=== PATIENT | female | born 1950 | race Caucasian/White ===

== ENCOUNTER 2018-03-31 10:13 | Observation (INO) | payer MEDICARE, OTHER, SELFPAY ==
[2018-03-31] VITALS (16 sets, daily range): BP systolic 138–169; BP diastolic 64–144; PULSE 61–89; RESP 14–18; TEMP 36.7–36.8; O2SAT 93–99; BMI 33.0; BMI 32.2
--- NOTE | 2018-03-31 10:30 | CT_ITS ---
STUDY: CT BRAIN WITHOUT CONTRAST REASON FOR EXAM: Female, 67 years old. Numbness RADIATION DOSAGE (If Supplied By Facility): CTDIvol = ( 44.99 ) mGy, DLP = ( 815.79 ) mGycm TECHNIQUE: Transaxial CT imaging of the brain was performed without administration of intravenous contrast material. Coronal and sagittal 2-D MPR Individualized dose optimization techniques were used for this CT. COMPARISON: None. FINDINGS: Extracranial soft tissues including orbital contents exhibit no acute abnormality. Craniofacial osseous structures within the field of view exhibit no acute abnormality. Paranasal sinuses, mastoid air cells and middle ear cavities are clear. There is minimal symmetric expansion of lateral ventricles and extra-axial spaces consistent with minimal age-related atrophy. There are no significant chronic changes of the white matter. Normal pituitary, brainstem and cerebellum There is no acute intracranial bleed, mass or mass effect nor any specific evidence of acute territorial infarct. CT/Brain/Head without Contrast IMPRESSION: No acute intracranial process. Electronically Signed: Mirza Mercado, at 12:35 EDT Tel , Service support ,
--- NOTE | 2018-03-31 10:30 | EKG12_ITS ---
Test Reason : NEURO S/SX Blood Pressure : / mmHG Vent. Rate : 084 BPM Atrial Rate : 084 BPM P-R Int : 152 ms QRS Dur : 090 ms QT Int : 392 ms P-R-T Axes : 058 052 035 degrees QTc Int : 463 ms Normal sinus rhythm Nonspecific ST abnormality Abnormal ECG Confirmed by BALJINDER ALMANZAR, RUSS ([id number]), photo editor FILI CEJA ([id number]) on 04/03/2018 1:41:30 PM Referred By: TAMIKA/MARTINA Confirmed By:RUSS GALE MD
--- NOTE | 2018-03-31 10:30 | RAD_ITS ---
STUDY: X-RAY CHEST REASON FOR EXAM: Female, 67 years old. Arm and face numbness TECHNIQUE: Single AP portable view of the chest. COMPARISON: None. FINDINGS: The lungs are clear and expanded. There is no demonstrated pleural abnormality. Normal size heart. Normal mediastinum and ainsley. Normal visualized pulmonary arteries. Normal visualized aortic arch and descending thoracic aorta. Normal visualized thoracic spine. Normal visualized ribs, clavicles, and shoulders. There is no demonstrated abnormality of the visualized soft tissue structures of the upper abdomen. RAD/Chest 1 View IMPRESSION: Normal x-ray examination of the chest. Electronically Signed: Tony Aceves DO at 11:08 EDT Tel , Service support ,
--- NOTE | 2018-03-31 10:45 | ED.VISSUMM ---
- ER Visit Summary Date of Service: 03/31/18 Chief Complaint: Numbness History of Present Illness: The patient is a 67 F with a sudden onset of numbness to her bilateral cheeks, lips, bilateral forearms, and bilateral feet. This started within the hour. No vision changes or speech changes. No weakness. Patient had bladder vaginal surgery earlier this week. She believes that the symptoms might be from anesthesia. She also was concerned about DVT. She has a history of DVT. She presented with unilateral leg pain and swelling. She was on Xarelto, but is currently not on blood thinners. Physical Examination: Afebrile and vital signs unremarkable except for a blood pressure of 165/144. Patient is in no acute distress. Alert and oriented. Heart regular. Lungs clear. Abdomen soft. Extremities nontender with no edema. Skin is normal in color. Cranial nerves grossly intact. Normal strength in all muscle groups. Patient has subjective paresthesias in her bilateral cheeks, bilateral lips, bilateral forearms, and bilateral feet. Test Results: EKG shows sinus rhythm at a rate of 84. Nonspecific changes. No acute ischemia or infarction pattern. Labs, CT, and chest x-ray pending. Emergency Department Course and Treatment: Concern for neurologic, metabolic causes. Patient does not meet stroke team criteria or indication for TPA. Nothing specific to suggest DVT or PE. Imaging and labs were checked. Will reassess. Patient does not meet criteria for stroke team or TPA. Labs including calcium unremarkable. Troponin normal. Chest x-ray showed normal findings. CT head showed nothing acute. On reevaluation, patient reports decreasing sensation going up the left side of her face. I spoke with Dr. Ontiveros who suggested that if this symptom is real, it may be a thalamic stroke. The patient seems to think that the symptoms are worse. I spoke with the hospitalist who will admit Treatment Plan: As above Disposition: Admission Impression: 1. Paresthesias This note was generated with [employer] dictation software. It may contain incorrect words, spelling, and punctuation that were not noted in review of the chart prior to signing ED Disposition - Plan for ED Patient: Chief Complaint: Numb/Ting Referrals: Allison Hines MD [Primary Care Provider] -
[2018-03-31 10:46] LABS: Bedside Glucose 125 mg/dL (70-110)
[2018-03-31 10:48] LABS: Absolute Lymphocyte Count 1.64 X10^3/ul (0.83-4.51); Absolute Neutrophil Count 4.5 X10^3/uL (2.0-7.7); Basophil# 0.04 X10^3/uL; Basophil% 0.6 % (0-1); Eosinophil# 0.18 X10^3/uL; Eosinophils% 2.7 % (0-5); Hematocrit 40.5 % (37-47); Hemoglobin 12.8 g/dl (12.0-15.0); Lymphocyte # 1.64 X10^3/ul (4.0); Lymphocyte % 24.4 % (19-41); Mean Corp Hgb Conc 31.6 g/gl (32-36); Mean Corpuscular Hgb 29.2 pg (27.0-32.0); Mean Corpuscular Volume 92.5 fL (81-99); Mean Platelet Vol. 10.2 fl (6.2-12.0); Monocyte# 0.36 X10^3/uL; Monocyte% 5.4 % (0-10); Neutrophil # 4.48 X10^3/uL (2.7-7.7); Neutrophil % 66.8 % (47-70); Platelet Count 228 K/mm3 (150-450); RBC Distribution Width CV 14.3 % (11.6-14.6); RBC Distribution Width SD 48.4 fl (35.1-43.9); Red Blood Count 4.38 M/mm3 (4.2-5.4); White Blood Count 6.7 K/mm3 (4.4-11.0)
--- NOTE | 2018-03-31 10:48 | ED.DCSUM_ITS ---
- ER Visit Summary Date of Service: 03/31/18 Chief Complaint: Numbness History of Present Illness: The patient is a 67 F with a sudden onset of numbness to her bilateral cheeks, lips, bilateral forearms, and bilateral feet. This started within the hour. No vision changes or speech changes. No weakness. Patient had bladder vaginal surgery earlier this week. She believes that the symptoms might be from anesthesia. She also was concerned about DVT. She has a history of DVT. She presented with unilateral leg pain and swelling. She was on Xarelto, but is currently not on blood thinners. Physical Examination: Afebrile and vital signs unremarkable except for a blood pressure of 165/144. Patient is in no acute distress. Alert and oriented. Heart regular. Lungs clear. Abdomen soft. Extremities nontender with no edema. Skin is normal in color. Cranial nerves grossly intact. Normal strength in all muscle groups. Patient has subjective paresthesias in her bilateral cheeks, bilateral lips, bilateral forearms, and bilateral feet. Test Results: EKG shows sinus rhythm at a rate of 84. Nonspecific changes. No acute ischemia or infarction pattern. Labs, CT, and chest x-ray pending. Emergency Department Course and Treatment: Concern for neurologic, metabolic causes. Patient does not meet stroke team criteria or indication for TPA. Nothing specific to suggest DVT or PE. Imaging and labs were checked. Will reassess. Patient does not meet criteria for stroke team or TPA. Labs including calcium unremarkable. Troponin normal. Chest x-ray showed normal findings. CT head showed nothing acute. On reevaluation, patient reports decreasing sensation going up the left side of her face. I spoke with Dr. Ontiveros who suggested that if this symptom is real , it may be a thalamic stroke. The patient seems to think that the symptoms are worse. I spoke with the hospitalist who will admit Treatment Plan: As above Disposition: Admission Impression: 1. Paresthesias This note was generated with [employer] dictation software. It may contain incorrect words, spelling, and punctuation that were not noted in review of the chart prior to signing ED Disposition - Plan for ED Patient: Chief Complaint: Numb/Ting Referrals: Allison Hines MD [Primary Care Provider] -
[2018-03-31 10:49] LABS: POSITIVE COUNT NO; POSITIVE DIFFERENTIAL NO; POSITIVE MORPHOLOGY NO
[2018-03-31 11:06] LABS: Anion Gap 7 (5-15); BUN 10 mg/dL (7-18); BUN/Creat Ratio 15.2 RATIO (10-20); Calcium,Total 8.4 mg/dL (8.5-10.1); Chloride 103 mmol/L (98-107); Creatinine, Serum 0.66 mg/dL (0.55-1.02); EST Glomerular Filtration Rate 95 mL/min (>60); Est Glom Filt Rate - Afr Amer 115 mL/min (>60); Estimated Creatinine Clearance 51.63 ml/min; Glucose 138 mg/dL (74-106); Potassium 4.1 mmol/L (3.5-5.1); Sodium Level 140 mmol/L (136-145)
--- NOTE | 2018-03-31 11:31 | ED.RN ---
called lab to assist with redraw. this RN attempted x2. MEAL GRINDER TENDER attempted x2.
[2018-03-31 12:13] LABS: International Normalized Ratio 0.9; Prothrombin Time (Protime)PT. 12.4 SECONDS (11.7-14.9)
[2018-03-31 12:14] LABS: Partial Thromboplast Time 26.4 Seconds (24.1-36.2)
--- NOTE | 2018-03-31 13:43 | PCA ---
NEUROLOGY PAGED DR LEBLANC
--- NOTE | 2018-03-31 14:37 | PCM.HP.STD ---
<Arnie Escalera - Last Filed: 03/31/18 14:37> Problem List (1) CVA (cerebral vascular accident) Status: Acute (2) Uterine prolapse Status: Chronic (3) HTN (hypertension) Status: Chronic (4) Vertigo Status: Chronic (5) Hyperlipidemia Status: Chronic (6) Asthma Status: Chronic (7) Diabetes mellitus, type II Status: Chronic History of Present Illness Date of Admission: 03/31/18 Chief Complaint: numbness The patient is a 67 year old F with a history of type 2 diabetes, hyperlipidemia, hypertension, asthma, uterine prolapse who recently underwent a surgical repair at the [facility] discharged 2 days prior, who presents today with symptoms of bilateral facial numbness, bilateral forearm numbness, left-sided leg numbness that began this morning at approximately 10:00. Patient states that she was sitting in a chair when all of a sudden she felt her face and arms go numb on both sides. She denies any history of this type of sensation before. The sensations have persisted, currently she noticed that mostly and her left cheek at this moment. There were no accompanying focal weaknesses, no did diplopia, no headache, no blurry vision, no hearing changes, no facial droop, no slurring of speech, no ataxia. She has had no palpitations, no chest pain, no shortness of breath. She has no history of stroke. No smoking history. [] Past Medical History Past Medical History (Chronic Problems): Chronic Problems Uterine prolapse (Chronic) HTN (hypertension) (Chronic) Vertigo (Chronic) Hyperlipidemia (Chronic) Asthma (Chronic) Diabetes mellitus, type II (Chronic) Allergies ciprofloxacin [From Cipro] Adverse Reaction (Verified 08/24/13 19:51) Other ciprofloxacin HCl [From Cipro] Adverse Reaction (Verified 08/24/13 19:51) Other tetracycline [Tetracycline] Adverse Reaction (Verified 08/24/13 19:51) Other Home Medications: Ambulatory Orders Medication Instructions Recorded Metformin HCl [Glucophage] 1,000 mg PO BREAKFAST 08/24/13 Montelukast [Singulair] 10 mg PO DAILY 08/24/13 Budesonide Inhaler 90 mcg 1 puff INHALATION DAILY 03/31/18 [Pulmicort Flexhaler 90 mcg] Docusate Sodium [Colace] 100 mg PO BID 03/31/18 Fluticasone 0.05% [Flonase Nasal 2 spray NASAL DAILY 03/31/18 [place]] Lisinopril [Zestril] 20 mg PO DAILY 03/31/18 Meloxicam [Mobic] 15 mg PO DAILY 03/31/18 Metformin HCl 1,000 mg PO DINNER 03/31/18 Metformin HCl [Glucophage] 500 mg PO LUNCH 03/31/18 Oxycodone [Oxyir] 5 mg PO QHS PRN 03/31/18 Polyethylene Glycol 3350 [Miralax] 17 gm PO DAILY 03/31/18 Pravastatin [Pravachol] 20 mg PO QHS 03/31/18 Surgical History: - - Hysterectomy, bladder suspension Psychiatric History: No pertinent psych hx PLANISHER History: No pertinent PLANISHER history Lives: Alone Smoking Status: Never smoker Tobacco Use: Non-smoker Alcohol: None Drugs: None - *Family History Maternal History Items: No pertinent history Paternal History Items: No pertinent history Review of Systems Constitutional: Denies: Chills, Fever, Weight Change HEENT: Denies: Head Aches, Sinus Congestion, Sinus Drainage Cardiovascular: Denies: Chest Pain, Palpitations Respiratory: Denies: Cough, Shortness of breath at rest, Sputum production Gastrointestinal: Denies: Abdominal Pain, Nausea, Vomiting Genitourinary: Denies: Dysuria Musculoskeletal: Denies: Joint Pain, Joint Tenderness Skin: Denies: Rash, Wounds Neurological: Reports: Numbness, Tingling. Denies: Balance problems, Blurred vision, Double vision, Change in Speech, Slurred speech, Confusion, Difficulty swallowing, Focal weakness, Headaches, Incoordination, Tremor, Seizures Psychiatric: Denies: Anxiety, Depression, Homicidal Ideations, Suicidal Ideations Hematologic/ Lymphatic: Denies: Easy Bruising, Easy Bleeding VTE Information - Inpt Only VTE Present on Admission: No VTE Mechan Device Prophylaxis: SCD's VTE Pharm Prophylaxis ordered?: Yes Patient Problems: Active and Suspected Problems CVA (cerebral vascular accident) (Acute) Paresthesia (Acute) - Physical Exam General: Alert, Oriented x3, Cooperative HEENT: Atraumatic, PERRLA, EOMI, Normocephalic Neck: Supple, No JVD, Negative Carotid Bruits Lungs: Clear to auscultation, Normal air movement Cardiovascular: Regular rate, No murmurs Abdomen: Bowel Sounds Present, Soft, Non Tender Extremities: No edema, Capillary Refill Less than 3 Seconds Skin: No rashes, No breakdown Musculoskeletal: No Tenderness to Palpation of Joints or Extremities Neurological: Cranial nerves II-XII grossly intact Psych/Mental Status: Normal Affect, Appropriate, Alert and oriented to time, place, person, mood and affect Vital Signs Temp Pulse Resp BP Pulse Ox 98.3 F 68 18 147/72 H 95 03/31/18 10:13 03/31/18 14:00 03/31/18 14:00 03/31/18 14:00 03/31/18 14:00 Oxygen Flow Rate (L/min) 2 Oxygen Delivery Method Room Air Weight: 95.8 kg Body Mass Index (BMI) 33.0 Finger Stick Blood Glucose 125 Laboratory Tests Past 24 Hrs 03/31/18 03/31/18 03/31/18 10:35 10:35 10:35 WBC 6.7 RBC 4.38 Hgb 12.8 Hct 40.5 MCV 92.5 MCH 29.2 MCHC 31.6 L RDW 14.3 RDW Differential 48.4 H Plt Count 228 MPV 10.2 Immature Gran % (Auto) 0.100 Neut % (Auto) 66.8 Lymph % (Auto) 24.4 Ballard % (Auto) 5.4 Eos % (Auto) 2.7 Baso % (Auto) 0.6 Absolute Neuts (auto) 4.5 Absolute Lymphs (auto) 1.64 Total Counted Not Reportable PT Cancelled INR Cancelled APTT Cancelled Sodium 140 Potassium 4.1 Chloride 103 Carbon Dioxide 30.0 Anion Gap 7 BUN 10 Creatinine 0.66 Estim Creat Clear Calc 51.63 Est GFR (MDRD) Af Amer 115 Est GFR (MDRD) Non-Af 95 BUN/Creatinine Ratio 15.2 Glucose 138 H Calcium 8.4 L Troponin I < 0.015 03/31/18 11:55 WBC RBC Hgb Hct MCV MCH MCHC RDW RDW Differential Plt Count MPV Immature Gran % (Auto) Neut % (Auto) Lymph % (Auto) Ballard % (Auto) Eos % (Auto) Baso % (Auto) Absolute Neuts (auto) Absolute Lymphs (auto) Total Counted PT 12.4 INR 0.9 APTT 26.4 Sodium Potassium Chloride Carbon Dioxide Anion Gap BUN Creatinine Estim Creat Clear Calc Est GFR (MDRD) Af Amer Est GFR (MDRD) Non-Af BUN/Creatinine Ratio Glucose Calcium Troponin I POC Glucose 03/31/18 10:43 POC Glucose 125 H Assessment/Plan All Active Problems CVA (cerebral vascular accident) (Acute) Paresthesia (Acute) 1. BL facial, forearm numbness and tingling - rule out CVA - sudden on set this AM. CT brain negative. EKG negative. No focal findings. Currently only left sided facial numbness. MRI/MRA, echo, neuro consult, PTOTST. Asa, statin. Risk factors include HTN, HLD, DMt2 2. HTN - poorly controlled in ER. Trend and adjust meds as needed. 3. HLD - on home pravastatin for this already 4. DMt2 - hold orals, SSI. 5. Uterine prolapse - s/p laparoscopic surgery POD#3. 6. Hx DVT 2012. No longer on anticoagulation 7. Hx Vertigo - treated by ENT conservatively with positional care. She reports no recurrent symptoms. 8. Hx Asthma - currently no symptoms - continue home aerosols. DVT ppx: lovenox DC planning: PTOTST. This patient was seen by Arnie Escalera PA-C under the supervision of Doctor Juan J. <Ashkan Arita - Last Filed: 03/31/18 15:07> Problem List (1) Paresthesia Status: Acute History of Present Illness The patient is a 67 year old F [place] with paresthesias today. Earlier today patient had some paresthesias over her left lateral hip which she gets on occasion due to her sciatica. Later in the day, patient experienced paresthesias in her face along her lips and then her cheeks and then also experienced on her forearms. Patient did not have any overt weakness. Patient states that she was feeling well at this time and not anxious though it is noted that patient's wedding anniversary was within the past 2 weeks and her . Patient states that she was not anxious about the anniversary, however. Patient presented to the emergency room and underwent. Patient's NIH score was 0. Patient is otherwise feeling well and is never had any symptoms such as this in the past. [] Past Medical History Allergies ciprofloxacin [From Cipro] Adverse Reaction (Verified 08/24/13 19:51) Other ciprofloxacin HCl [From Cipro] Adverse Reaction (Verified 08/24/13 19:51) Other tetracycline [Tetracycline] Adverse Reaction (Verified 08/24/13 19:51) Other Psychiatric History: No pertinent psych hx PLANISHER History: No pertinent PLANISHER history Lives: Alone Smoking Status: Never smoker Tobacco Use: Non-smoker Alcohol: None Drugs: None - *Family History Maternal History Items: No pertinent history Paternal History Items: No pertinent history Review of Systems Constitutional: Denies: Chills, Fever, Weight Change HEENT: Denies: Difficulty Hearing, Head Aches, Sinus Congestion, Sinus Drainage Cardiovascular: Denies: Chest Pain, Palpitations Respiratory: Denies: Cough, Shortness of breath at rest, Sputum production Gastrointestinal: Denies: Abdominal Pain, Nausea, Vomiting Genitourinary: Denies: Dysuria Musculoskeletal: Denies: Joint Pain, Joint Tenderness Skin: Denies: Rash, Wounds Neurological: Denies: Balance problems, Blurred vision, Double vision, Change in Speech, Slurred speech, Confusion, Difficulty swallowing, Focal weakness, Headaches, Incoordination, Tremor, Seizures Psychiatric: Denies: Anxiety, Depression, Homicidal Ideations, Suicidal Ideations Hematologic/ Lymphatic: Denies: Easy Bruising, Easy Bleeding VTE Information - Inpt Only VTE Present on Admission: No VTE Pharm Prophylaxis ordered?: Yes - Physical Exam General: Alert, Cooperative, No apparent distress HEENT: Atraumatic, PERRLA, EOMI, Normocephalic Oral: Moist Mucosa, No Gingival or Mucosal Lesions/ Ulcerations Neck: No Nodes, Thyroid Normal Size and Texture Lungs: Clear to auscultation, Normal air movement, No rhonchi, No wheeze Cardiovascular: Regular rate, Regular Rhythm, Normal S1, Normal S2, No murmurs Abdomen: Bowel Sounds Present, Soft, Non Tender, Non-Distended Extremities: No clubbing, No cyanosis, No edema, No Calf Tenderness Skin: No rashes, No breakdown Musculoskeletal: No Tenderness to Palpation of Joints or Extremities, No Muscle Wasting Neurological: Cranial nerves II-XII grossly intact, Neuro grossly intact, Motor Exam 5/5 strength throughout Psych/Mental Status: Normal Affect, Appropriate Vital Signs Temp Pulse Resp BP Pulse Ox 36.8 C 68 18 147/72 H 95 03/31/18 10:13 03/31/18 14:00 03/31/18 14:00 03/31/18 14:00 03/31/18 14:00 Oxygen Flow Rate (L/min) 2 Oxygen Delivery Method Room Air Weight: 95.8 kg Body Mass Index (BMI) 33.0 Finger Stick Blood Glucose 125 Laboratory Tests Past 24 Hrs 03/31/18 03/31/18 03/31/18 10:35 10:35 10:35 WBC 6.7 RBC 4.38 Hgb 12.8 Hct 40.5 MCV 92.5 MCH 29.2 MCHC 31.6 L RDW 14.3 RDW Differential 48.4 H Plt Count 228 MPV 10.2 Immature Gran % (Auto) 0.100 Neut % (Auto) 66.8 Lymph % (Auto) 24.4 Ballard % (Auto) 5.4 Eos % (Auto) 2.7 Baso % (Auto) 0.6 Absolute Neuts (auto) 4.5 Absolute Lymphs (auto) 1.64 Total Counted Not Reportable PT Cancelled INR Cancelled APTT Cancelled Sodium 140 Potassium 4.1 Chloride 103 Carbon Dioxide 30.0 Anion Gap 7 BUN 10 Creatinine 0.66 Estim Creat Clear Calc 51.63 Est GFR (MDRD) Af Amer 115 Est GFR (MDRD) Non-Af 95 BUN/Creatinine Ratio 15.2 Glucose 138 H Calcium 8.4 L Troponin I < 0.015 03/31/18 11:55 WBC RBC Hgb Hct MCV MCH MCHC RDW RDW Differential Plt Count MPV Immature Gran % (Auto) Neut % (Auto) Lymph % (Auto) Ball[place] % (Auto) Eos % (Auto) Baso % (Auto) Absolute Neuts (auto) Absolute Lymphs (auto) Total Counted PT 12.4 INR 0.9 APTT 26.4 Sodium Potassium Chloride Carbon Dioxide Anion Gap BUN Creatinine Estim Creat Clear Calc Est GFR (MDRD) Af Amer Est GFR (MDRD) Non-Af BUN/Creatinine Ratio Glucose Calcium Troponin I POC Glucose 03/31/18 10:43 POC Glucose 125 H Clinical Impression(s) from Imaging Studies Brain CT 03/31/18 10:30 IMPRESSION: No acute intracranial process. Electronically Signed: Mirza Mercado, at 12:35 EDT Tel , Service support , Chest X-Ray 03/31/18 10:30 IMPRESSION: Normal x-ray examination of the chest. Electronically Signed: Tony Aceves DO at 11:08 EDT Tel , Service support , EKG reviewed and showed normal sinus Assessment/Plan Patient seen and examined independently. Data reviewed. I agree with the above note by the physician account management assistant. 1. Paresthesias Unclear etiology at this time. Concern is for evaluating for a stroke. Other possibilities could be panic attack though patient does not give me the impression that there is any acute anxiety issues at this time. So, patient will undergo a stroke workup with an MRI of the brain, MRA of the head neck, 2D echocardiogram and a neurology consultation. Patient has passed her dysphagia evaluation and patient has already been started on diet in the emergency room Patient will be on aspirin 2. DVT prophylaxis with Lovenox Code Visit Inpatient E&M: 58728 Init Hosp L3
--- NOTE | 2018-03-31 14:50 | HP.PCM_ITS ---
<Arnie Escalera - Last Filed: 03/31/18 14:37> Problem List (1) CVA (cerebral vascular accident) Status: Acute (2) Uterine prolapse Status: Chronic (3) HTN (hypertension) Status: Chronic (4) Vertigo Status: Chronic (5) Hyperlipidemia Status: Chronic (6) Asthma Status: Chronic (7) Diabetes mellitus, type II Status: Chronic History of Present Illness Date of Admission: 03/31/18 Chief Complaint: numbness The patient is a 67 year old F with a history of type 2 diabetes, hyperlipidemia , hypertension, asthma, uterine prolapse who recently underwent a surgical repair at the [facility] discharged 2 days prior, who presents today with symptoms of bilateral facial numbness, bilateral forearm numbness, left-sided leg numbness that began this morning at approximately 10:00. Patient states that she was sitting in a chair when all of a sudden she felt her face and arms go numb on both sides. She denies any history of this type of sensation before. The sensations have persisted, currently she noticed that mostly and her left cheek at this moment. There were no accompanying focal weaknesses, no did diplopia, no headache, no blurry vision, no hearing changes, no facial droop , no slurring of speech, no ataxia. She has had no palpitations, no chest pain , no shortness of breath. She has no history of stroke. No smoking history. [ ] Past Medical History Past Medical History (Chronic Problems): Chronic Problems Uterine prolapse (Chronic) HTN (hypertension) (Chronic) Vertigo (Chronic) Hyperlipidemia (Chronic) Asthma (Chronic) Diabetes mellitus, type II (Chronic) Allergies ciprofloxacin [From Cipro] Adverse Reaction (Verified 08/24/13 19:51) Other ciprofloxacin HCl [From Cipro] Adverse Reaction (Verified 08/24/13 19:51) Other tetracycline [Tetracycline] Adverse Reaction (Verified 08/24/13 19:51) Other Home Medications: Ambulatory Orders Medication Instructions Recorded Metformin HCl [Glucophage] 1,000 mg PO BREAKFAST 08/24/13 Montelukast [Singulair] 10 mg PO DAILY 08/24/13 Budesonide Inhaler 90 mcg 1 puff INHALATION DAILY 03/31/18 [Pulmicort Flexhaler 90 mcg] Docusate Sodium [Colace] 100 mg PO BID 03/31/18 Fluticasone 0.05% [Flonase Nasal 2 spray NASAL DAILY 03/31/18 Ross] Lisinopril [Zestril] 20 mg PO DAILY 03/31/18 Meloxicam [Mobic] 15 mg PO DAILY 03/31/18 Metformin HCl 1,000 mg PO DINNER 03/31/18 Metformin HCl [Glucophage] 500 mg PO LUNCH 03/31/18 Oxycodone [Oxyir] 5 mg PO QHS PRN 03/31/18 Polyethylene Glycol 3350 [Miralax] 17 gm PO DAILY 03/31/18 Pravastatin [Pravachol] 20 mg PO QHS 03/31/18 Surgical History: - - Hysterectomy, bladder suspension Psychiatric History: No pertinent psych hx 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 Lives: Alone Smoking Status: Never smoker Tobacco Use: Non-smoker Alcohol: None Drugs: None - *Family History Maternal History Items: No pertinent history Paternal History Items: No pertinent history Review of Systems Constitutional: Denies: Chills, Fever, Weight Change HEENT: Denies: Head Aches, Sinus Congestion, Sinus Drainage Cardiovascular: Denies: Chest Pain, Palpitations Respiratory: Denies: Cough, Shortness of breath at rest, Sputum production Gastrointestinal: Denies: Abdominal Pain, Nausea, Vomiting Genitourinary: Denies: Dysuria Musculoskeletal: Denies: Joint Pain, Joint Tenderness Skin: Denies: Rash, Wounds Neurological: Reports: Numbness, Tingling. Denies: Balance problems, Blurred vision, Double vision, Change in Speech, Slurred speech, Confusion, Difficulty swallowing, Focal weakness, Headaches, Incoordination, Tremor, Seizures Psychiatric: Denies: Anxiety, Depression, Homicidal Ideations, Suicidal Ideations Hematologic/ Lymphatic: Denies: Easy Bruising, Easy Bleeding VTE Information - Inpt Only VTE Present on Admission: No VTE Mechan Device Prophylaxis: SCD's VTE Pharm Prophylaxis ordered?: Yes Patient Problems: Active and Suspected Problems CVA (cerebral vascular accident) (Acute) Paresthesia (Acute) - Physical Exam General: Alert, Oriented x3, Cooperative HEENT: Atraumatic, PERRLA, EOMI, Normocephalic Neck: Supple, No JVD, Negative Carotid Bruits Lungs: Clear to auscultation, Normal air movement Cardiovascular: Regular rate, No murmurs Abdomen: Bowel Sounds Present, Soft, Non Tender Extremities: No edema, Capillary Refill Less than 3 Seconds Skin: No rashes, No breakdown Musculoskeletal: No Tenderness to Palpation of Joints or Extremities Neurological: Cranial nerves II-XII grossly intact Psych/Mental Status: Normal Affect, Appropriate, Alert and oriented to time, place, person, mood and affect Vital Signs Temp Pulse Resp BP Pulse Ox 98.3 F 68 18 147/72 H 95 03/31/18 10:13 03/31/18 14:00 03/31/18 14:00 03/31/18 14:00 03/31/18 14:00 Oxygen Flow Rate (L/min) 2 Oxygen Delivery Method Room Air Weight: 95.8 kg Body Mass Index (BMI) 33.0 Finger Stick Blood Glucose 125 Laboratory Tests Past 24 Hrs 03/31/18 03/31/18 03/31/18 10:35 10:35 10:35 WBC 6.7 RBC 4.38 Hgb 12.8 Hct 40.5 MCV 92.5 MCH 29.2 MCHC 31.6 L RDW 14.3 RDW Differential 48.4 H Plt Count 228 MPV 10.2 Immature Gran % (Auto) 0.100 Neut % (Auto) 66.8 Lymph % (Auto) 24.4 [place] % (Auto) 5.4 Eos % (Auto) 2.7 Baso % (Auto) 0.6 Absolute Neuts (auto) 4.5 Absolute Lymphs (auto) 1.64 Total Counted Not Reportable PT Cancelled INR Cancelled APTT Cancelled Sodium 140 Potassium 4.1 Chloride 103 Carbon Dioxide 30.0 Anion Gap 7 BUN 10 Creatinine 0.66 Estim Creat Clear Calc 51.63 Est GFR (MDRD) Af Amer 115 Est GFR (MDRD) Non-Af 95 BUN/Creatinine Ratio 15.2 Glucose 138 H Calcium 8.4 L Troponin I < 0.015 03/31/18 11:55 WBC RBC Hgb Hct MCV MCH MCHC RDW RDW Differential Plt Count MPV Immature Gran % (Auto) Neut % (Auto) Lymph % (Auto) Henderson % (Auto) Eos % (Auto) Baso % (Auto) Absolute Neuts (auto) Absolute Lymphs (auto) Total Counted PT 12.4 INR 0.9 APTT 26.4 Sodium Potassium Chloride Carbon Dioxide Anion Gap BUN Creatinine Estim Creat Clear Calc Est GFR (MDRD) Af Amer Est GFR (MDRD) Non-Af BUN/Creatinine Ratio Glucose Calcium Troponin I POC Glucose 03/31/18 10:43 POC Glucose 125 H Assessment/Plan All Active Problems CVA (cerebral vascular accident) (Acute) Paresthesia (Acute) 1. BL facial, forearm numbness and tingling - rule out CVA - sudden on set this AM. CT brain negative. EKG negative. No focal findings. Currently only left sided facial numbness. MRI/MRA, echo, neuro consult, PTOTST. Asa, statin. Risk factors include HTN, HLD, DMt2 2. HTN - poorly controlled in ER. Trend and adjust meds as needed. 3. HLD - on home pravastatin for this already 4. DMt2 - hold orals, SSI. 5. Uterine prolapse - s/p laparoscopic surgery POD#3. 6. Hx DVT 2012. No longer on anticoagulation 7. Hx Vertigo - treated by ENT conservatively with positional care. She reports no recurrent symptoms. 8. Hx Asthma - currently no symptoms - continue home aerosols. DVT ppx: lovenox DC planning: PTOTST. This patient was seen by Arnie Escalera PA-C under the supervision of Doctor Juan J. <Ashkan Arita - Last Filed: 03/31/18 15:07> Problem List (1) Paresthesia Status: Acute History of Present Illness The patient is a 67 year old F [place] with paresthesias today. Earlier today patient had some paresthesias over her left lateral hip which she gets on occasion due to her sciatica. Later in the day, patient experienced paresthesias in her face along her lips and then her cheeks and then also experienced on her forearms. Patient did not have any overt weakness. Patient states that she was feeling well at this time and not anxious though it is noted that patient's wedding anniversary was within the past 2 weeks and her . Patient states that she was not anxious about the anniversary, however. Patient presented to the emergency room and underwent. Patient's NIH score was 0. Patient is otherwise feeling well and is never had any symptoms such as this in the past. 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 Lives: Alone Smoking Status: Never smoker Tobacco Use: Non-smoker Alcohol: None Drugs: None - *Family History Maternal History Items: No pertinent history Paternal History Items: No pertinent history Review of Systems Constitutional: Denies: Chills, Fever, Weight Change HEENT: Denies: Difficulty Hearing, Head Aches, Sinus Congestion, Sinus Drainage Cardiovascular: Denies: Chest Pain, Palpitations Respiratory: Denies: Cough, Shortness of breath at rest, Sputum production Gastrointestinal: Denies: Abdominal Pain, Nausea, Vomiting Genitourinary: Denies: Dysuria Musculoskeletal: Denies: Joint Pain, Joint Tenderness Skin: Denies: Rash, Wounds Neurological: Denies: Balance problems, Blurred vision, Double vision, Change in Speech, Slurred speech, Confusion, Difficulty swallowing, Focal weakness, Headaches, Incoordination, Tremor, Seizures Psychiatric: Denies: Anxiety, Depression, Homicidal Ideations, Suicidal Ideations Hematologic/ Lymphatic: Denies: Easy Bruising, Easy Bleeding VTE Information - Inpt Only VTE Present on Admission: No VTE Pharm Prophylaxis ordered?: Yes - Physical Exam General: Alert, Cooperative, No apparent distress HEENT: Atraumatic, PERRLA, EOMI, Normocephalic Oral: Moist Mucosa, No Gingival or Mucosal Lesions/ Ulcerations Neck: No Nodes, Thyroid Normal Size and Texture Lungs: Clear to auscultation, Normal air movement, No rhonchi, No wheeze Cardiovascular: Regular rate, Regular Rhythm, Normal S1, Normal S2, No murmurs Abdomen: Bowel Sounds Present, Soft, Non Tender, Non-Distended Extremities: No clubbing, No cyanosis, No edema, No Calf Tenderness Skin: No rashes, No breakdown Musculoskeletal: No Tenderness to Palpation of Joints or Extremities, No Muscle Wasting Neurological: Cranial nerves II-XII grossly intact, Neuro grossly intact, Motor Exam 5/5 strength throughout Psych/Mental Status: Normal Affect, Appropriate Vital Signs Temp Pulse Resp BP Pulse Ox 36.8 C 68 18 147/72 H 95 03/31/18 10:13 03/31/18 14:00 03/31/18 14:00 03/31/18 14:00 03/31/18 14:00 Oxygen Flow Rate (L/min) 2 Oxygen Delivery Method Room Air Weight: 95.8 kg Body Mass Index (BMI) 33.0 Finger Stick Blood Glucose 125 Laboratory Tests Past 24 Hrs 03/31/18 03/31/18 03/31/18 10:35 10:35 10:35 WBC 6.7 RBC 4.38 Hgb 12.8 Hct 40.5 MCV 92.5 MCH 29.2 MCHC 31.6 L RDW 14.3 RDW Differential 48.4 H Plt Count 228 MPV 10.2 Immature Gran % (Auto) 0.100 Neut % (Auto) 66.8 Lymph % (Auto) 24.4 Henderson % (Auto) 5.4 Eos % (Auto) 2.7 Baso % (Auto) 0.6 Absolute Neuts (auto) 4.5 Absolute Lymphs (auto) 1.64 Total Counted Not Reportable PT Cancelled INR Cancelled APTT Cancelled Sodium 140 Potassium 4.1 Chloride 103 Carbon Dioxide 30.0 Anion Gap 7 BUN 10 Creatinine 0.66 Estim Creat Clear Calc 51.63 Est GFR (MDRD) Af Amer 115 Est GFR (MDRD) Non-Af 95 BUN/Creatinine Ratio 15.2 Glucose 138 H Calcium 8.4 L Troponin I < 0.015 03/31/18 11:55 WBC RBC Hgb Hct MCV MCH MCHC RDW RDW Differential Plt Count MPV Immature Gran % (Auto) Neut % (Auto) Lymph % (Auto) Henderson % (Auto) Eos % (Auto) Baso % (Auto) Absolute Neuts (auto) Absolute Lymphs (auto) Total Counted PT 12.4 INR 0.9 APTT 26.4 Sodium Potassium Chloride Carbon Dioxide Anion Gap BUN Creatinine Estim Creat Clear Calc Est GFR (MDRD) Af Amer Est GFR (MDRD) Non-Af BUN/Creatinine Ratio Glucose Calcium Troponin I POC Glucose 03/31/18 10:43 POC Glucose 125 H Clinical Impression(s) from Imaging Studies Brain CT 03/31/18 10:30 IMPRESSION: No acute intracranial process. Electronically Signed: Mirza Mercado, at 12:35 EDT Tel , Service support , Chest X-Ray 03/31/18 10:30 IMPRESSION: Normal x-ray examination of the chest. Electronically Signed: Tony Aceves DO at 11:08 EDT Tel , Service support , EKG reviewed and showed normal sinus Assessment/Plan Patient seen and examined independently. Data reviewed. I agree with the above note by the physician butcher assistant. 1. Paresthesias * Unclear etiology at this time. Concern is for evaluating for a stroke. Other possibilities could be panic attack though patient does not give me the impression that there is any acute anxiety issues at this time. So, patient will undergo a stroke workup with an MRI of the brain, MRA of the head neck, 2D echocardiogram and a neurology consultation. * Patient has passed her dysphagia evaluation and patient has already been started on diet in the emergency room * Patient will be on aspirin 2. DVT prophylaxis with Lovenox Code Visit Inpatient E&M: 68002 Init Hosp L3
[2018-03-31] MEDS: Acetaminophen 325 MG Tablet 650 MG PO ×2 (15:17→22:20)
[2018-03-31 17:50] LABS: Bedside Glucose 150 mg/dL (70-110)
[2018-03-31] MEDS: Docusate Sodium 100 MG Capsule PO (22:20)
[2018-03-31 23:31] LABS: Bedside Glucose 104 mg/dL (70-110)
[2018-04-01] VITALS (7 sets, daily range): BP systolic 137–162; BP diastolic 55–88; PULSE 56–80; RESP 14–16; TEMP 36.7–37.1; O2SAT 94–97; BMI 32.2
--- NOTE | 2018-04-01 00:57 | NURSING ---
held 1700 dose of glucophage. per jordan CASSIDY, pharmacy did not send up med in time for her to give. by shift change the med was still not up here. i told her i would give it tonight with all of her HS meds. i called pharmacy to see if it was still okay for me to give the scheduled glucophage at 2205. per Ashkan, it would be okay to give even though it is 5 hours later. blood sugars dont drop too much with glucophage but he said if her blood sugar was on the lower side, to go ahead and hold the dose. her blood sugar was 104. per nursing judgment, i held the 1700 dose of glucophage. will recheck blood sugar in AM.
[2018-04-01] MEDS: Acetaminophen 325 MG Tablet 650 MG PO (04:20)
[2018-04-01 06:27] LABS: Cholesterol 124 mg/dL (200); High Density Lipoprotein 62 mg/dL; Triglycerides 105 mg/dL; Very Low Density Lipoprotein 21 mg/dL (5-40)
[2018-04-01 06:51] LABS: Bedside Glucose 113 mg/dL (70-110)
[2018-04-01] MEDS: metFORMIN HCl 1,000 MG Tablet 1000 MG PO (07:49)
[2018-04-01] MEDS: Enoxaparin 40 MG/0.4 ML Syringe SC (07:49)
[2018-04-01] MEDS: Aspirin 81 MG TAB.CHEW PO (07:49)
[2018-04-01] MEDS: Lisinopril 20 MG Tablet PO (07:49)
[2018-04-01] MEDS: Docusate Sodium 100 MG Capsule PO (07:49)
[2018-04-01] MEDS: Montelukast 10 MG Tablet PO (07:49)
[2018-04-01] MEDS: Polyethylene Glycol 3350 17 GM PACKET PO (07:50)
[2018-04-01] MEDS: Fluticasone 0.05% 1 SPRAY NASAL.SRY 2 SPRAY NASAL (07:50)
[2018-04-01 12:35] LABS: Bedside Glucose 78 mg/dL (70-110)
--- NOTE | 2018-04-01 13:18 | DCINST_ITS ---
- Discharge Diagnoses Current Active Problems: Current Active and Chronic Problems Uterine prolapse (Chronic) CVA (cerebral vascular accident) (Acute) HTN (hypertension) (Chronic) Vertigo (Chronic) Paresthesia (Acute) You will use the following diet at home:: Calorie/Carbohydrate Controlled ( specify 1200, 1400, etc) - 1800 benito / day, Cardiac Your food should be the consistency of: Regular Your liquids should be the consistency of: Regular/Thin Discharge Activity: Return to Normal Activity Allergies/Adverse Reactions: Allergies ciprofloxacin [From Cipro] Adverse Reaction (Verified 08/24/13 19:51) Other ciprofloxacin HCl [From Cipro] Adverse Reaction (Verified 08/24/13 19:51) Other tetracycline [Tetracycline] Adverse Reaction (Verified 08/24/13 19:51) Other Medications to take at Discharge Metformin HCl [Glucophage] 1,000 mg PO BREAKFAST 08/24/13 Montelukast [Singulair] 10 mg PO DAILY 08/24/13 Budesonide Inhaler 180 mcg [Pulmicort Inhaler 180 mcg] 1 puff INHALATION DAILY 03/31/18 Docusate Sodium [Colace] 100 mg PO BID 03/31/18 Fluticasone 0.05% [Flonase Nasal [place]] 2 spray NASAL DAILY 03/31/18 Lisinopril [Zestril] 20 mg PO DAILY 03/31/18 Meloxicam [Mobic] 15 mg PO DAILY 03/31/18 Metformin HCl 1,000 mg PO DINNER 03/31/18 Metformin HCl [Glucophage] 500 mg PO LUNCH 03/31/18 Oxycodone [Oxyir] 5 mg PO QHS PRN 03/31/18 Polyethylene Glycol 3350 [Miralax] 17 gm PO DAILY 03/31/18 Pravastatin [Pravachol] 20 mg PO QHS 03/31/18 Primary Care Physician: Allison Hines MD [Primary Care Provider] - Please follow up with your Primary Care Physician in: 1-2 weeks Test Results: Test results from this visit will be discussed in further detail at your follow- up appointment, if applicable. Proposed Discharge Date: 04/01/18
--- NOTE | 2018-04-01 13:18 | PCM.DC.SUM ---
<Arnie Escalera - Last Filed: 04/01/18 13:18> Discharge Date and Diagnosis - Problem List Patient Problems: Active and Suspected Problems CVA (cerebral vascular accident) (Acute) Paresthesia (Acute) Date of Admission: 03/31/18 Date of Discharge: 04/01/18 - Primary Discharge Diagnosis Active and Suspected Problems CVA ruled out Paresthesia (Acute) - unclear etiology HTN HLD DMt2 Chronic vertigo Uterine prolapse s/p recent suspension - Secondary Discharge Diagnosis Chronic Problems Uterine prolapse (Chronic) HTN (hypertension) (Chronic) Vertigo (Chronic) Hyperlipidemia (Chronic) Asthma (Chronic) Diabetes mellitus, type II (Chronic) Hospital Course and Treatment Imaging Results: CT/Brain/Head without Contrast IMPRESSION: No acute intracranial process. RAD/Chest 1 View IMPRESSION: Normal x-ray examination of the chest. MRI/Brain W/WO Contrast IMPRESSION: Normal unenhanced and enhanced MRI of the brain. MRI/MRA Head ONLY without Contrast IMPRESSION: Normal MRA of the head MRI/MRA Neck WITH and W/O Contrast IMPRESSION: Normal bilateral cervical carotid and vertebral arteries. Operations: None Procedures: None Summary of Care Provided: Physical exam on day of discharge: General: Resting comfortably NAD Psych: A/Ox3 normal affect HEENT: PEARRLA AT NC Neck: Supple NT CV: RRR no m/t/r/g/h Resp: CTA Abd: [id number] Soft NT no guarding or rigidity Ext: DP2+= no edema Skin: W/D normal turgor Lymph/Heme: No active bleeding or adenopathy Neuro: CN2-12 intact, sensation is intact in her face, no pronator drift, strength is intact and equal bilaterally Hospital course: The patient is a 67 year old F with a history of hypertension, hyperlipidemia, type 2 diabetes, chronic vertigo, uterine prolapse with recent suspension surgery several days prior to admission, who presented to the ER with new onset of paresthesias bilaterally in her face and forearms. She had no focal weaknesses, dizziness, lightheadedness, difficulty ambulating, slurred speech, facial droop. These began about 10:00 the day of presentation. She had unremarkable labs and unremarkable CT of the brain, and EKG in the emergency room. She was admitted to the PCU with concerns for CVA. She was maintained on telemetry which was negative. Lipid panel was checked and her LDL was at goal at 41. The following day she underwent an MRI of the brain, MRA of the head and neck. These were all negative. She continued to have mild paresthesias in the left cheek. We advised her at this time that she did not have a stroke and that she should follow-up with her PCP in 1 week. She was discharged home in stable condition. This patient was seen by Arnie Escalera PA-C under the supervision of Doctor Juan J. [] Discharge Diet: Low fat/ Low Cholesterol, 1800 Calorie Control Diet, 2000 mg Sodium Diet Discharge Activity: Return to Normal Activity Home Medications: Medications to take at Discharge Metformin HCl [Glucophage] 1,000 mg PO BREAKFAST 08/24/13 Montelukast [Singulair] 10 mg PO DAILY 08/24/13 Budesonide Inhaler 180 mcg [Pulmicort Inhaler 180 mcg] 1 puff INHALATION DAILY 03/31/18 Docusate Sodium [Colace] 100 mg PO BID 03/31/18 Fluticasone 0.05% [Flonase Nasal [place]] 2 spray NASAL DAILY 03/31/18 Lisinopril [Zestril] 20 mg PO DAILY 03/31/18 Meloxicam [Mobic] 15 mg PO DAILY 03/31/18 Metformin HCl 1,000 mg PO DINNER 03/31/18 Metformin HCl [Glucophage] 500 mg PO LUNCH 03/31/18 Oxycodone [Oxyir] 5 mg PO QHS PRN 03/31/18 Polyethylene Glycol 3350 [Miralax] 17 gm PO DAILY 03/31/18 Pravastatin [Pravachol] 20 mg PO QHS 03/31/18 Primary Care Physician: Allison Hines MD [Primary Care Provider] - Please follow up with your Primary Care Physician in: 1-2 weeks Disposition: Home Minutes spent on discharge:: 35 Patient Condition:: Stable Medical Necessity - Tobacco Use Smoking Status: Never smoker Tobacco Use: Non-smoker Meaningful Use Info Meaningful Use Diagnoses (Choose all that apply): None applicable <Ashkan Arita - Last Filed: 04/01/18 14:39> Discharge Date and Diagnosis - Primary Discharge Diagnosis Active and Suspected Problems CVA (cerebral vascular accident) (Acute) Paresthesia (Acute) - Secondary Discharge Diagnosis Chronic Problems Uterine prolapse (Chronic) HTN (hypertension) (Chronic) Vertigo (Chronic) Hyperlipidemia (Chronic) Asthma (Chronic) Diabetes mellitus, type II (Chronic) Hospital Course and Treatment Operations: None Procedures: None Summary of Care Provided: Patient seen and examined independently. Data reviewed. I agree with the above note by the physician office administrative assistant. The patient is a 67 year old F presents with facial paresthesias and arm paresthesias. Began around her lips and then my weeks and then then localized to the left side of her face and cheek. Also involve the dorsal aspect of both of her forearms. Patient had no focal deficits whenever her sensation was intact. Patient underwent a stroke workup with MRIs that all came back unremarkable. Given the fact the patient did not have a stroke was on the cocktail server the patient complete remainder of her stroke workup. It is unclear what caused her symptoms but certainly no stroke nor any demyelinating lesion. There is recent anniversary for her wedding anniversary that is. Patient's little over a year ago. Patient states that she did not experience any distress over the anniversary of his nor their wedding anniversary but is certainly some anxiety could be a component of this symptoms but nothing else that we can diagnose clinically at this time. Patient require further follow-up with her primary care doctor for further evaluation for seems to be more ongoing or not. [] Discharge Diet: Low fat/ Low Cholesterol, 1800 Calorie Control Diet, 2000 mg Sodium Diet Discharge Activity: Return to Normal Activity Disposition: Home Patient Condition:: Stable Meaningful Use Info Meaningful Use Diagnoses (Choose all that apply): None applicable Code Visit OBSV E&M: 62160 Observation care discharge
--- NOTE | 2018-04-01 13:23 | DS.PCM_ITS ---
<Arnie Escalera - Last Filed: 04/01/18 13:18> Discharge Date and Diagnosis - Problem List Patient Problems: Active and Suspected Problems CVA (cerebral vascular accident) (Acute) Paresthesia (Acute) Date of Admission: 03/31/18 Date of Discharge: 04/01/18 - Primary Discharge Diagnosis Active and Suspected Problems CVA ruled out Paresthesia (Acute) - unclear etiology HTN HLD DMt2 Chronic vertigo Uterine prolapse s/p recent suspension - Secondary Discharge Diagnosis Chronic Problems Uterine prolapse (Chronic) HTN (hypertension) (Chronic) Vertigo (Chronic) Hyperlipidemia (Chronic) Asthma (Chronic) Diabetes mellitus, type II (Chronic) Hospital Course and Treatment Imaging Results: CT/Brain/Head without Contrast IMPRESSION: No acute intracranial process. RAD/Chest 1 View IMPRESSION: Normal x-ray examination of the chest. MRI/Brain W/WO Contrast IMPRESSION: Normal unenhanced and enhanced MRI of the brain. MRI/MRA Head ONLY without Contrast IMPRESSION: Normal MRA of the head MRI/MRA Neck WITH and W/O Contrast IMPRESSION: Normal bilateral cervical carotid and vertebral arteries. Operations: None Procedures: None Summary of Care Provided: Physical exam on day of discharge: General: Resting comfortably NAD Psych: A/Ox3 normal affect HEENT: PEARRLA AT NC Neck: Supple NT CV: RRR no m/t/r/g/h Resp: CTA Abd: [id number] Soft NT no guarding or rigidity Ext: DP2+= no edema Skin: W/D normal turgor Lymph/Heme: No active bleeding or adenopathy Neuro: CN2-12 intact, sensation is intact in her face, no pronator drift, strength is intact and equal bilaterally Hospital course: The patient is a 67 year old F with a history of hypertension, hyperlipidemia, type 2 diabetes, chronic vertigo, uterine prolapse with recent suspension surgery several days prior to admission, who presented to the ER with new onset of paresthesias bilaterally in her face and forearms. She had no focal weaknesses, dizziness, lightheadedness, difficulty ambulating, slurred speech, facial droop. These began about 10:00 the day of presentation. She had unremarkable labs and unremarkable CT of the brain, and EKG in the emergency room. She was admitted to the PCU with concerns for CVA. She was maintained on telemetry which was negative. Lipid panel was checked and her LDL was at goal at 41. The following day she underwent an MRI of the brain, MRA of the head and neck. These were all negative. She continued to have mild paresthesias in the left cheek. We advised her at this time that she did not have a stroke and that she should follow-up with her PCP in 1 week. She was discharged home in stable condition. This patient was seen by Arnie Escalera PA-C under the supervision of Doctor Juan J. [] Discharge Diet: Low fat/ Low Cholesterol, 1800 Calorie Control Diet, 2000 mg Sodium Diet Discharge Activity: Return to Normal Activity Home Medications: Medications to take at Discharge Metformin HCl [Glucophage] 1,000 mg PO BREAKFAST 08/24/13 Montelukast [Singulair] 10 mg PO DAILY 08/24/13 Budesonide Inhaler 180 mcg [Pulmicort Inhaler 180 mcg] 1 puff INHALATION DAILY 03/31/18 Docusate Sodium [Colace] 100 mg PO BID 03/31/18 Fluticasone 0.05% [Flonase Nasal Delta] 2 spray NASAL DAILY 03/31/18 Lisinopril [Zestril] 20 mg PO DAILY 03/31/18 Meloxicam [Mobic] 15 mg PO DAILY 03/31/18 Metformin HCl 1,000 mg PO DINNER 03/31/18 Metformin HCl [Glucophage] 500 mg PO LUNCH 03/31/18 Oxycodone [Oxyir] 5 mg PO QHS PRN 03/31/18 Polyethylene Glycol 3350 [Miralax] 17 gm PO DAILY 03/31/18 Pravastatin [Pravachol] 20 mg PO QHS 03/31/18 Primary Care Physician: Allison Hines MD [Primary Care Provider] - Please follow up with your Primary Care Physician in: 1-2 weeks Disposition: Home Minutes spent on discharge:: 35 Patient Condition:: Stable Medical Necessity - Tobacco Use Smoking Status: Never smoker Tobacco Use: Non-smoker Meaningful Use Info Meaningful Use Diagnoses (Choose all that apply): None applicable <Ashkan Arita - Last Filed: 04/01/18 14:39> Discharge Date and Diagnosis - Primary Discharge Diagnosis Active and Suspected Problems CVA (cerebral vascular accident) (Acute) Paresthesia (Acute) - Secondary Discharge Diagnosis Chronic Problems Uterine prolapse (Chronic) HTN (hypertension) (Chronic) Vertigo (Chronic) Hyperlipidemia (Chronic) Asthma (Chronic) Diabetes mellitus, type II (Chronic) Hospital Course and Treatment Operations: None Procedures: None Summary of Care Provided: Patient seen and examined independently. Data reviewed. I agree with the above note by the physician temporary office assistant. The patient is a 67 year old F presents with facial paresthesias and arm paresthesias. Began around her lips and then my weeks and then then localized to the left side of her face and cheek. Also involve the dorsal aspect of both of her forearms. Patient had no focal deficits whenever her sensation was intact. Patient underwent a stroke workup with MRIs that all came back unremarkable. Given the fact the patient did not have a stroke was on the power lineman technician the patient complete remainder of her stroke workup. It is unclear what caused her symptoms but certainly no stroke nor any demyelinating lesion. There is recent anniversary for her wedding anniversary that is. Patient's little over a year ago. Patient states that she did not experience any distress over the anniversary of his nor their wedding anniversary but is certainly some anxiety could be a component of this symptoms but nothing else that we can diagnose clinically at this time. Patient require further follow-up with her primary care doctor for further evaluation for seems to be more ongoing or not. [] Discharge Diet: Low fat/ Low Cholesterol, 1800 Calorie Control Diet, 2000 mg Sodium Diet Discharge Activity: Return to Normal Activity Disposition: Home Patient Condition:: Stable Meaningful Use Info Meaningful Use Diagnoses (Choose all that apply): None applicable Code Visit OBSV E&M: 22617 Observation care discharge
--- NOTE | 2018-04-01 14:15 | MRI_ITS ---
STUDY: MRI BRAIN WITH AND WITHOUT CONTRAST REASON FOR EXAM: Female, 67 years old. Left facial N/T s/p bladder surgery 3 days ago TECHNIQUE: Standardized multiplanar fat and water weighted pulse sequences were obtained. 10 ml of Gadavist contrast material was administered intravenously for the contrast portion of the examination. COMPARISON: None. FINDINGS: Normal size of the ventricles and extra-axial spaces for the patient's age. Normal white matter tracts of the supratentorial brain. Normal bilateral basal ganglia. Normal thalami. There is no extra-axial fluid accumulation. Normal flow voids within the major intracranial circulation suggesting patency by spin echo criteria. Normal venous enhancement. There is no enhancing intra-axial or extra-axial abnormality. Normal sella turcica, pituitary gland, infundibular stalk, optic chiasm and hypothalamus. Normal tectal plate and pineal gland. Normal midbrain, haylie and medulla. Normal cerebellum. Normal basal cisterns. Normal bilateral temporal bones. Normal bilateral internal auditory canals. No demonstrated orbital abnormality, within the constraints of a routine brain study. Normal visualized paranasal sinuses. Normal calvarium and skull base. Normal visualized soft tissue structures. Normal visualized upper cervical spine. MRI/Brain W/WO Contrast IMPRESSION: Normal unenhanced and enhanced MRI of the brain. Electronically Signed: Yannick Reardon MD at 12:44 EDT Tel , Service support ,
--- NOTE | 2018-04-01 14:16 | MRI_ITS ---
STUDY: MRA OF THE HEAD WITHOUT CONTRAST REASON FOR EXAM: Female, 67 years old. Left facial N/T s/p bladder surgery 3 days ago TECHNIQUE: 3-D flnu-dr-nofulj (TOF) imaging was performed with MIPs. The study was performed unenhanced. COMPARISON: None. FINDINGS: Normal bilateral petrous carotid arteries. Normal right cavernous carotid artery with a normal supraclinoid bifurcation. Normal left cavernous carotid artery with a normal supraclinoid bifurcation. Normal right A1 segments of the anterior cerebral artery. Normal left A1 segments of the anterior cerebral artery. Normal intact anterior communicating artery (ACOM). Normal bilateral A2 segments of the anterior cerebral arteries. Normal right M1 and M2 segments of the middle cerebral arteries, with a normal M1 bifurcation. Normal left M1 and M2 segments of the middle cerebral arteries, with a normal M1 bifurcation. Normal right posterior communicating artery (PCOM). Normal left posterior communicating artery (PCOM). Normal bilateral vertebral arteries. Normal basilar artery with a normal basilar bifurcation. The visualized bilateral superior cerebellar (SCA) arteries are normal. Normal bilateral P1, P2 and visualized P3 segments of the posterior cerebral arteries. There is no demonstrated aneurysm of the [place]. There is no major vessel occlusion or hemodynamically significant stenosis. There is no demonstrated abnormality of the visualized brain. MRI/MRA Head ONLY without Contrast IMPRESSION: Normal MRA of the head Electronically Signed: Yannick Reardon MD at 12:12 EDT Tel , Service support ,
--- NOTE | 2018-04-01 14:16 | MRI_ITS ---
STUDY: MRA NECK WITH AND WITHOUT CONTRAST REASON FOR EXAM: Female, 67 years old. Left facial N/T S/P bladder surgery 3 days ago TECHNIQUE: 3-D jyiv-kx-xkhmnr (TOF) imaging was performed in an 1.5 T MRI scanner. 10 ml of Gadavist was administered for the contrast enhanced images. COMPARISON: None. FINDINGS: RIGHT CAROTID ARTERIES: Normal right common carotid artery (CCA). Normal right common carotid bulb. Normal origin of the right internal carotid (ICA) artery without a hemodynamically significant stenosis. Normal visualized cervical portion of the right internal carotid artery. Normal origin of the right external carotid artery (ECA). LEFT CAROTID ARTERIES: Normal left common carotid artery (CCA). Normal left common carotid bulb. Normal origin of the left internal carotid (ICA) artery without a hemodynamically significant stenosis. Normal visualized cervical portion of the left internal carotid artery. Normal origin of the left external carotid artery (ECA). VERTEBRAL ARTERIES: Normal antegrade flow within the bilateral vertebral artery without a hemodynamically significant stenosis. MRI/MRA Neck WITH and W/O Contrast IMPRESSION: Normal bilateral cervical carotid and vertebral arteries. Electronically Signed: Yannick Reardon MD at 12:26 EDT Tel , Service support ,
== END 2018-04-01 13:17 | disposition home or self-care (01) ==
LOC: ED 10:48 → PCU 16:28
PROVIDERS: Emergency Provider Emergency Medicine; Family Provider Internal Medicine; PCP Internal Medicine
DX: I63.9 Cerebral infarction, unspecified (principal); R20.0 Anesthesia of skin; I10 Essential (primary) hypertension; E78.5 Hyperlipidemia, unspecified; E11.9 Type 2 diabetes mellitus without complications; J45.909 Unspecified asthma, uncomplicated; Z79.84 Long term (current) use of oral hypoglycemic drugs; Z79.899 Other long term (current) drug therapy; Z98.890 Other specified postprocedural states
CPT/HCPCS: 36415; 70450; 70544; 70549; 70553; 71045; 80048; 80061; 82962; 84484; 85025; 85610; 85730; 92523; 93005; 96372; 99218; 99285; A9585; A4216; G0378; G8999; G9158; G9186

== ENCOUNTER 2018-11-10 09:26 | Emergency (ER) | payer MEDICARE, OTHER, SELFPAY ==
[2018-11-10 09:28] VITALS: BP 165/79; PULSE 83; RESP 16; TEMP 36.1; O2SAT 97; BMI 31.5
--- NOTE | 2018-11-10 09:46 | VDLE_ITS ---
Reason For Study: swelling RIGHT LEFT GSV is normal. CFV is compressible, spontaneous, phasic, CFV is compressible, spontaneous, phasic, competent, and demonstrates normal competent and demonstrates normal augmentation. augmentation. FV is compressible, spontaneous, phasic, competent and demonstrates normal augmentation. POP V is compressible, spontaneous, phasic, competent and demonstrates normal augmentation. T/P Trunk is compressible. PTV is compressible. RT PerV is compressible. Soleus V is dilated and noncompressible. Procedure Exam performed portable in ED. The exam was diagnostic. A preliminary report was called and/or faxed to Dr. Acosta. Interpretation Summary Acute deep vein thrombosis is noted in the right soleus vein. The remainder of the right lower extremity deep venous system is patent and compressible. Valvular competence appears intact within the proximal deep venous system on the right . The right greater saphenous vein appears patent and compressible segmentally. Ordering Physician: Maximo Acosta Performed By: Andrés Maxwell RVT
--- NOTE | 2018-11-10 09:53 | ED.VISSUMM ---
- ER Visit Summary Date of Service: 11/10/18 Chief Complaint: Right leg pain History of Present Illness: The patient is a 68 F presents to the emergency department concerned that she may have a DVT. 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 She states that she was on Xarelto for 3 months. She said no further symptoms. She had a mechanical fall about 10 days ago. She struck her left knee. She states she really had no pain. Over the past 2 days, she is noticed pain in her lateral right calf. She is also felt like it swollen. She denies chest pain or trouble breathing. The pain is made worse when she walks. Physical Examination: Vital signs reviewed General: Well-nourished, well-developed Head: Normocephalic, atraumatic Eyes: Pupils equal and reactive, extraocular muscles intact Neck, supple, no lymphadenopathy Heart: Regular rate and rhythm Respiratory: No distress, clear bilaterally Abdomen: Soft, nontender, nondistended, no peritoneal signs Back: Nontender Extremities: Nontender, no edema, no cords Skin: Normal color no rash Neuro: Alert and oriented, no focal or lateralizing deficits Test Results: [] Emergency Department Course and Treatment: The patient has normal pulses. She does have very minimal tenderness in the lateral aspect of the left calf. There is no palpable cords. There is no compartment syndrome. Ultrasound was obtained. Patient does have a soleal DVT. It is below the knee, however the patient has had DVT 3 years ago. I do feel that her risk of propagation is higher especially as this was not incited. The patient did have treatment with Xarelto in the past and did well with it. I do feel that this would be the most conservative treatment. I did discuss this with on-call for her primary care, Dr. Borges, who is in agreement. Patient was given her first dose of Xarelto will be kept on this. She will follow-up with primary care for repeat ultrasound. The patient will be discharged home. Treatment Plan: [] Disposition: Discharge Impression: Below the knee DVT right leg This note was generated with [employer] software. It may contain incorrect words, spelling, and punctuation that were not noted in review of the chart prior to signing ED Disposition - Plan for ED Patient: Instructions: ED DVT Prescriptions: Rivaroxaban [Xarelto] 15 mg PO BID #42 tab Referrals: Allison Hnies MD [Primary Care Provider] -
[2018-11-10 10:53] VITALS: BP 160/87; PULSE 81; RESP 16; TEMP -7.7; TEMP 18; O2SAT 99
[2018-11-10] MEDS: Rivaroxaban 15 MG Tablet PO (11:04)
== END 2018-11-10 11:05 | disposition home or self-care (01) ==
LOC: ED 10:03
PROVIDERS: Emergency Provider Emergency Medicine; Family Provider Internal Medicine; PCP Internal Medicine
DX: I82.4Z2 Acute embolism and thrombosis of unspecified deep veins of left distal lower extremity (principal); Z79.01 Long term (current) use of anticoagulants; Z79.84 Long term (current) use of oral hypoglycemic drugs; Z79.899 Other long term (current) drug therapy; Z86.718 Personal history of other venous thrombosis and embolism; Z86.73 Personal history of transient ischemic attack (TIA), and cerebral infarction without residual deficits
CPT/HCPCS: 93971; 99283

== ENCOUNTER → 2021-05-12 13:40 | Outpatient (CLI) | payer MEDICARE, OTHER, SELFPAY ==
--- NOTE | 2021-05-12 13:46 | ECHOD_ITS ---
Reason For Study: Dyspnea/SOB Procedure This was a 2D Doppler, Color Flow transthoracic echocardiogram. Unable to obtain IV access, bubble study not performed. Exam performed in department. Left Ventricle Normal LV size. Left ventricular systolic function is normal. The estimated ejection fraction is 60 %. No regional wall motion abnormalities noted. Right Ventricle Normal RV size. Normal systolic function. Atria Normal left atrium. Normal right atrium. Mitral Valve Normal mitral valve. Tricuspid Valve Normal tricuspid valve. Aortic Valve Normal aortic valve. Trisinus/trileaflet aortic valve. Pulmonic Valve Normal pulmonic valve. Mild (1+) pulmonic valve insufficiency. Great Vessels Normal aortic root. The pulmonary artery is normal size. Normal inferior vena cava. Pericardium/Pleural No pericardial effusion. MMode/2D Measurements & Calculations LVIDd: 4.7 cm IVSd: 1.0 cm Ao root diam: 3.9 cm LVIDs: 2.5 cm LVPWd: 0.95 cm RVDd: 2.9 cm FS: 45.8 % LAV(MOD-bp): 51.8 ml LVAd ap4: 21.5 cm2 SV(MOD-sp4): 34.9 ml LAV(MOD-bp) Indexed: 25.3 ml/m2 LVLd ap4: 7.0 cm LAV(MOD-sp2): 57.0 ml EDV(MOD-sp4): 53.7 ml LAV(MOD-sp4): 45.9 ml EDV(sp4-el): 56.2 ml LVAs ap4: 10.7 cm2 LVLs ap4: 5.2 cm ESV(MOD-sp4): 18.7 ml ESV(sp4-el): 18.7 ml EF(MOD-sp4): 65.1 % EF(sp4-el): 66.8 % SV(sp4-el): 37.5 ml LA A4 area: 16.8 cm2 LA dimension(2D): 4.4 cm RA A4 area: 12.8 cm2 Doppler Measurements & Calculations MV E max cali: 71.7 cm/sec Lat Peak E' Cali: 12.3 cm/sec Med Peak E' Cali: 6.2 cm/sec MV A max cali: 89.8 cm/sec E/E' lat: 5.8 E/E' med: 11.6 MV E/A: 0.80 Ao V2 max: 142.4 cm/sec LV V1 max: 119.3 cm/sec PA V2 max: 98.2 cm/sec Ao max P.1 mmHg LV V1 max P.7 mmHg Ao V2 mean: 98.4 cm/sec Ao mean P.2 mmHg Ao V2 VTI: 28.7 cm ECHO/Echo Complete Interpretation Summary Normal LV size. Left ventricular systolic function is normal. The estimated ejection fraction is 60 %. Structurally normal valves. Ordering Physician: Lonny Zelaya Referring Physician: Allison Hines Performed By: Sandra Marcos, RDJAKY, RVT
== END ==
PROVIDERS: PCP Internal Medicine; Referring Provider Internal Medicine Cardiovascular Disease; Visit Provider Internal Medicine Cardiovascular Disease
DX: R06.02 Shortness of breath (principal); R06.09 Other forms of dyspnea
CPT/HCPCS: 93306; A4216

== ENCOUNTER 2022-09-18 15:24 | Emergency (ER) | payer MEDICARE, OTHER, SELFPAY ==
[2022-09-18 15:24] VITALS: BP 162/72; PULSE 91; RESP 14; TEMP 36.1; O2SAT 99; BMI 29.1
--- NOTE | 2022-09-18 16:43 | EDS_ITS ---
HPI History of Present Illness Chief Complaint: Shortness of Breath Informant: patient Onset/Context/Timing Onset: Today Context: sudden Timing: Intermittent Quality: Positive for Dyspnea on exertion Worsened by: Exertion Relieved by: Nothing Associated Symptoms Negative for cough, rhinorrhea, post nasal drip, ear pain, fever, sore throat, chills or sweats Chest Pain: Positive for Pressure Narrative Narrative: Patient presents with shortness of breath, dizziness, lightheadedness, and chest pain that began today. Patient states she was in [place] when this began. Patient states it began rather suddenly. Patient states she gets short of b reath anytime she goes up some stairs. Patient states that she has some pain in her chest that feels like there is not enough room in her chest. Patient states nothing makes it better nothing makes it worse. Patient states she went to the urgent care today because this felt similar to prior asthma episodes. Patient states that she was evaluated there and was referred to the emergency department for possible cardiac etiology. [facility] Medical History Asthma Diabetes mellitus, type II Essential (primary) hypertension Hyperlipidemia Obesity Paresthesia Recurrent deep vein thrombosis (DVT) (10/2018) Uterine prolapse Vertigo Home Medications montelukast 10 mg tablet 10 mg PO DAILY seasonal allergies 08/24/13 [History Last Taken 03/31/18 07:00] fluticasone propionate 50 mcg/actuation nasal spray,suspension 2 spray NASAL DAILY allergies 03/31/18 [History Last Taken Unknown] meloxicam 15 mg tablet 15 mg PO DAILY arthritis 03/31/18 [History Last Taken 03/31/18 07:00] ascorbate calcium (vitamin C) 500 mg tablet 500 mg PO DAILY 11/08/21 [History Last Taken Unknown] aspirin 81 mg tablet,delayed release 81 mg PO DAILY 11/08/21 [History Last Taken Unknown] cranberry 500 mg capsule 500 mg PO DAILY 11/08/21 [History Last Taken Unknown] lisinopril 20 mg tablet 20 mg PO DAILY blood pressure #90 tabs 11/08/21 [Rx Last Taken Unknown] metformin 500 mg tablet 500 mg PO TID 11/08/21 [History Last Taken Unknown] pravastatin 20 mg tablet 20 mg PO QHS cholesterol #90 tabs 05/24/22 [Rx Last Taken Unknown] rivaroxaban 10 mg tablet (Xarelto) 10 mg PO DAILY #90 tabs 07/25/22 [Rx Last Taken Unknown] Allergy/AdvReac Type Severity Reaction Status Date / Time ciprofloxacin [From Cipro] AdvReac Other Verified 11/08/21 13:07 ciprofloxacin HCl AdvReac Other Verified 11/08/21 13:07 [From Cipro] tetracycline [Tetracycline] AdvReac Other Verified 11/08/21 13:07 Family History Father Heart disease Surgical History History of bladder suspension procedure History of hysterectomy Social History Smoking Status: Never smoker ROS ROS ED Constitutional Constitutional ED: Denies chills or fever(s) Eyes Eyes: Denies blurry vision or change in vision ENT ENT ED: Denies rhinorrhea or sore throat Cardiovascular Cardiovascular: Reports chest pain; Denies palpitations Respiratory/Chest Respiratory/Chest: Reports dyspnea; Denies cough Gastrointestinal Gastrointestinal: Denies nausea or vomiting Genitourinary Genitourinary ED: Denies dysuria or hematuria Musculoskeletal Musculoskeletal: Reports back pain; Denies neck pain Integumentary Denies abscess or rash Neurologic Neurologic: Denies headache(s) or weakness Allergic/Immunologic Allergic/Immunologic ED: Denies mouth swelling or urticaria EXAM Physical Exam Const Vital Signs: 09/18/22 15:24 09/18/22 17:00 09/18/22 17:55 Temperature 97 F L Temperature Source Temporal Pulse Rate 91 72 75 Respiratory Rate 14 18 14 Respiratory Effort Respiratory Depth Respiratory Pattern Blood Pressure 162/72 H 144/78 H Blood Pressure Mean 102 100 Pulse Ox 99 95 Oxygen Delivery Method Room Air Room Air 09/18/22 17:55 09/18/22 19:00 09/18/22 20:20 Temperature Temperature Source Pulse Rate 71 70 Respiratory Rate 20 H 16 Respiratory Effort Normal Non-Labored Respiratory Depth Normal Respiratory Pattern Irregular Blood Pressure 140/70 H 135/69 H Blood Pressure Mean 93 Pulse Ox 95 99 Oxygen Delivery Method Room Air Room Air Positive well nourished and well developed General Appearance ED: well developed and NAD HEENT Reports moist mucous membranes Neck supple and no JVD Resp normal respiratory effort Auscultation: wheezes expiratory wheezes (Mild end expiratory wheezing) Cardio regular rate, regular rhythm and no murmurs GI normal to inspection, nondistended, normoactive bowel sounds and non-tender Palpation: soft Extremity normal to inspection General Extremety ED: Negative for edema or tenderness General Extremity: Negative for edema Neuro oriented x3, CN's II-XII intact bilaterally and no sensory deficits noted Sensorium / Orientation: alert Motor Exam: strength 5/5 throughout Psych mental status grossly normal Skin no rashes or lesions noted MDM MDM MDM Narrative Medical decision making narrative: EKG was obtained. On my interpretation, it showed a normal sinus rhythm with a rate of 73. [place] interval, QRS interval, and QTc intervals were all normal. [place] was normal. There are no acute ST or T wave changes. PA and lateral chest x- ray was obtained. There are 2 views. On my interpretation, lung plummer are clear. There is normal cardiac silhouette. Bony thorax is normal. There is no acute process noted. Radiologist also interpreted the x-ray and agrees. CBC was within normal limits. D-dimer was normal. Comprehensive metabolic profile was essentially within normal limits. High-sensitivity troponin was normal at 6. 2-hour repeat high-sensitivity troponin was also 6. Patient was given a DuoNeb aerosol here. Patient felt better on reevaluation. 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 Patient understood and was agreeable with the plan. All questions were answered. Lab Data Attestation: I reviewed the patient's lab results. Labs: Laboratory Results - last 24 hr 09/18/22 09/18/22 09/18/22 17:30 17:30 17:30 WBC 7.5 RBC 4.67 Hgb 13.7 Hct 43.2 MCV 92.5 MCH 29.3 MCHC 31.7 L RDW Std Deviation 49.7 H RDW Coeff of Kathya 14.6 Plt Count 298 MPV 9.8 Immature Gran % (Auto) 0.300 Neut % (Auto) 56.9 Lymph % (Auto) 30.7 [place] % (Auto) 9.2 Eos % (Auto) 2.0 Baso % (Auto) 0.9 Absolute Neuts (auto) 4.3 Absolute Lymphs (auto) 2.30 Nucleated RBC % 0 D-Dimer Quant (PE/DVT) 0.27 Sodium 140 Potassium 3.9 Chloride 106 Carbon Dioxide 30.0 Anion Gap 4 L BUN 20 H Creatinine 0.68 Estim Creat Clear Calc 48.72 Est GFR (MDRD) Af Amer 109 Est GFR (MDRD) Non-Af 90 BUN/Creatinine Ratio 29.5 H Glucose 112 H Calcium 9.5 Total Bilirubin 0.30 AST 13 L ALT 20 Alkaline Phosphatase 57 Troponin I High Sens 6 Total Protein 6.8 Albumin 3.7 Globulin 3.1 Albumin/Globulin Ratio 1.2 09/18/22 Unknown WBC RBC Hgb Hct MCV MCH MCHC RDW Std Deviation RDW Coeff of Kathya Plt Count MPV Immature Gran % (Auto) Neut % (Auto) Lymph % (Auto) [place] % (Auto) Eos % (Auto) Baso % (Auto) Absolute Neuts (auto) Absolute Lymphs (auto) Nucleated RBC % D-Dimer Quant (PE/DVT) Sodium Potassium Chloride Carbon Dioxide Anion Gap BUN Creatinine Estim Creat Clear Calc Est GFR (MDRD) Af Amer Est GFR (MDRD) Non-Af BUN/Creatinine Ratio Glucose Calcium Total Bilirubin AST ALT Alkaline Phosphatase Troponin I High Sens 6 Total Protein Albumin Globulin Albumin/Globulin Ratio Radiography Chest X-Ray - ED: 2 View, Read by ED Physician, Read by Radiologist and No Acute Disease Diagnostic Testing: Clinical Impression(s) from Imaging Studies Chest X-Ray 09/18/22 16:49 IMPRESSION: Normal x-ray examination of the chest. Electronically Signed: Mirza Mercer MD at 18:03 EST Reading Location ID and State: [address] [address] Tel , Service support , EKG Initial EKG: Attestation: I personally reviewed and interpreted this EKG as follows: Interpretation: Sinus Rhythm (73) and No Acute Injury Pattern Prior EKG tracings: available for review Prior: Unchanged (03/31/2018) Discharge Plan Triage Chief Complaint: Shortness of Breath ED Provider: Ashkan Bautista Dx/Rx/DC Orders Clinical Impression: Asthma exacerbation, Essential (primary) hypertension Instructions: ED Asthma, Acute (Adult) Prescriptions: No Action cranberry 500 mg capsule 500 mg PO DAILY Rx Instructions: administer with meals ascorbate calcium (vitamin C) 500 mg tablet 500 mg PO DAILY aspirin 81 mg tablet,delayed release (DR/EC) 81 mg PO DAILY lisinopril 20 mg tablet 20 mg PO DAILY Qty: 90 3RF montelukast 10 MG tablet 10 mg PO DAILY metformin 500 mg tablet 500 mg PO TID meloxicam 15 MG tablet 15 mg PO DAILY fluticasone propionate 1 SPRAY spray,suspension 2 spray NASAL DAILY pravastatin 20 mg tablet 20 mg PO QHS Qty: 90 3RF Xarelto 10 mg tablet 10 mg PO DAILY Qty: 90 3RF Primary Care Provider: Allison Hines Referrals: Allison Hines MD [Primary Care Provider] - 3-5 Days Disposition Disposition: Home, Self Care Discharge Date/Time: 09/18/22 20:21
--- NOTE | 2022-09-18 16:49 | EKG12_ITS ---
Test Reason : SOB Blood Pressure : / mmHG Vent. Rate : 073 BPM Atrial Rate : 073 BPM P-R Int : 112 ms QRS Dur : 094 ms QT Int : 394 ms P-R-T Axes : -85 065 031 degrees QTc Int : 434 ms Unusual p axis and short [place], consider ectopic atrial rhythm Abnormal ECG Confirmed by JOSE ALMANZAR, MASOUD ([id number]), newspaper editor managing JAYLON GOULD ([id number]) on 09/20/2022 1:17:10 PM Referred By: LORNA Confirmed By:MASOUD GARCIA MD
--- NOTE | 2022-09-18 16:49 | RAD_ITS ---
STUDY: X-RAY CHEST REASON FOR EXAM: Female, 71 years old. Dyspnea TECHNIQUE: PA and lateral views of the chest. COMPARISON: 03/31/2018 FINDINGS: The lungs are clear and expanded. There is no demonstrated pleural abnormality. Normal size heart. Normal mediastinum and ainsley. Normal visualized pulmonary arteries. Normal visualized aortic arch and descending thoracic aorta. Normal visualized thoracic spine. Normal visualized ribs, clavicles, and shoulders. There is no demonstrated abnormality of the visualized soft tissue structures of the upper abdomen. RAD/Chest PA and Lateral IMPRESSION: Normal x-ray examination of the chest. Electronically Signed: Mirza Mercer MD at 18:03 EST ,
[2022-09-18] MEDS: Ipratropium/Albuterol Sulfate 3 ML AMPUL.NEB INHALATION (16:59)
[2022-09-18 17:00] VITALS: PULSE 72; RESP 18
[2022-09-18 17:41] LABS: Absolute Neutrophil Count 4.3 X10^3/uL (2.0-7.7); Basophil# 0.07 X10^3/uL; Basophil% 0.9 % (0-1); Eosinophil# 0.15 X10^3/uL; Hematocrit 43.2 % (37-47); Hemoglobin 13.7 g/dL (12.0-15.0); Lymphocyte % 30.7 % (19-41); Mean Corp Hgb Conc 31.7 g/dL (32-36); Mean Corpuscular Hgb 29.3 pg (27.0-32.0); Mean Corpuscular Volume 92.5 fL (81-99); Mean Platelet Vol. 9.8 fl (6.2-12.0); Monocyte# 0.69 X10^3/uL; Monocyte% 9.2 % (0-10); NRBC Flagged by Analyzer 0 % (0-5); Neutrophil # 4.27 X10^3/uL (2.7-7.7); Neutrophil % 56.9 % (47-70); Platelet Count 298 K/mm3 (150-450); RBC Distribution Width CV 14.6 % (11.6-14.6); RBC Distribution Width SD 49.7 fl (35.1-43.9); Red Blood Count 4.67 M/mm3 (4.2-5.4); White Blood Count 7.5 K/mm3 (4.4-11.0)
[2022-09-18 17:53] LABS: D-Dimer Quantitative (DVT/PE) 0.27 FEU/ug/m (0.27-0.49)
[2022-09-18] MEDS: Aspirin 81 MG TAB.CHEW 324 MG PO (17:53)
[2022-09-18 17:55] VITALS: BP 144/78; PULSE 75; RESP 14; O2SAT 95; O2SAT 98
[2022-09-18 18:12] LABS: ALB/GLOB Ratio 1.2 RATIO (0.9-2.4); AST(SGOT) 13 U/L (15-37); Alanine Aminotransfer ALT/SGPT 20 U/L (13-56); Albumin, Serum 3.7 g/dL (3.2-5.0); Alkaline Phosphatase 57 U/L (45-117); Anion Gap 4 (5-15); BUN 20 mg/dL (7-18); BUN/Creat Ratio 29.5 RATIO (10-20); Calcium,Total 9.5 mg/dL (8.5-10.1); Chloride 106 mmol/L (98-107); Creatinine, Serum 0.68 mg/dL (0.55-1.02); EST Glomerular Filtration Rate 90 mL/min (>60); Est Glom Filt Rate - Afr Amer 109 mL/min (>60); Estimated Creatinine Clearance 48.72 ml/min; Globulin 3.1 g/dL (2.2-4.2); Glucose 112 mg/dL (74-106); Potassium 3.9 mmol/L (3.5-5.1); Protein, Total 6.8 g/dL (6.4-8.2); Sodium Level 140 mmol/L (136-145); Troponin-I HS (w/2H Reflex) 6 pg/mL (3.0-54.0)
[2022-09-18 19:00] VITALS: BP 140/70; PULSE 71; RESP 20; O2SAT 95
[2022-09-18 19:39] LABS: Reflex Troponin-HS? (from REC) Y
[2022-09-18 20:01] LABS: Troponin-I HS 6 pg/mL (3.0-54.0)
[2022-09-18 20:20] VITALS: BP 135/69; PULSE 70; RESP 16; O2SAT 99
== END 2022-09-18 20:21 | disposition home or self-care (01) ==
PROVIDERS: Emergency Provider Emergency Medicine; PCP Internal Medicine; Visit Provider Emergency Medicine
DX: J45.901 Unspecified asthma with (acute) exacerbation (principal); E11.9 Type 2 diabetes mellitus without complications; I10 Essential (primary) hypertension; E78.5 Hyperlipidemia, unspecified; Z86.718 Personal history of other venous thrombosis and embolism; Z79.82 Long term (current) use of aspirin; Z79.899 Other long term (current) drug therapy; Z79.84 Long term (current) use of oral hypoglycemic drugs; Z79.01 Long term (current) use of anticoagulants
CPT/HCPCS: 71046; 80053; 84484; 85025; 85379; 93005; 94640; 99285; A4216

== ENCOUNTER 2023-04-06 19:27 | Observation (INO) | payer MEDICARE, OTHER, SELFPAY ==
[2023-04-06] VITALS (7 sets, daily range): BP systolic 135–153; BP diastolic 72–81; PULSE 68–94; RESP 11–18; TEMP 36.3–36.6; O2SAT 93–100; BMI 29.9; BMI 30.3
--- NOTE | 2023-04-06 19:47 | EX.ED.DYSGE1 ---
HPI <AIDEE Kearney - Last Filed: 04/06/23 20:47> History of Present Illness Chief Complaint: Fall Narrative Narrative: 72-year-old female had a mechanical fall 2 weeks ago. She was steppingfrom the yard onto a raised concrete area when she fell backwards and struck the back of her head on the ground. No LOC. She states she felt spacey for the rest of the day but otherwise fine. Then 4 days ago she developed weakness in her right arm and leg. She states they just feel uncomfortable. She noticed it was hard to push the buttons on the back of her toilet bowl that flushes it. She has no pain in the extremities. She never had a headache, visual or speech changes, or nausea or vomiting. She called her primary care's office today who recommended she come to the ED. She does take Xarelto for history of remote DVT. [facility] <AIDEE Keraney - Last Filed: 04/06/23 20:47> [facility] Medical History Asthma Diabetes mellitus, type II Essential (primary) hypertension Hyperlipidemia Obesity Paresthesia Recurrent deep vein thrombosis (DVT) (10/2018) Uterine prolapse Vertigo Home Medications montelukast 10 mg tablet 10 mg PO DAILY seasonal allergies 08/24/13 [History Last Taken 03/31/18 07:00] fluticasone propionate 50 mcg/actuation nasal spray,suspension 2 spray NASAL DAILY allergies 03/31/18 [History Last Taken Unknown] meloxicam 15 mg tablet 15 mg PO DAILY arthritis 03/31/18 [History Last Taken 03/31/18 07:00] ascorbate calcium (vitamin C) 500 mg tablet 500 mg PO DAILY 11/08/21 [History Last Taken Unknown] aspirin 81 mg tablet,delayed release 81 mg PO DAILY 11/08/21 [History Last Taken Unknown] cranberry 500 mg capsule 500 mg PO DAILY 11/08/21 [History Last Taken Unknown] metformin 500 mg tablet 500 mg PO TID 11/08/21 [History Last Taken Unknown] pravastatin 20 mg tablet 20 mg PO QHS cholesterol #90 tabs 05/24/22 [Rx Last Taken Unknown] rivaroxaban 10 mg tablet (Xarelto) 10 mg PO DAILY #90 tabs 07/25/22 [Rx Last Taken Unknown] methenamine-sodium salicylate 162 mg-162.5 mg tablet (AZO Urinary Tract Defense) tab PO DAILY 11/28/22 [History Last Taken Unknown] potassium gluconate 595 mg (99 mg) tablet 595 mg PO DAILY 11/28/22 [History Last Taken Unknown] lisinopril 20 mg tablet 20 mg PO DAILY blood pressure #90 tabs 01/09/23 [Rx Last Taken Unknown] Allergy/AdvReac Type Severity Reaction Status Date / Time ciprofloxacin [From Cipro] AdvReac Other Verified 04/06/23 19:51 ciprofloxacin HCl AdvReac Other Verified 04/06/23 19:51 [From Cipro] tetracycline [Tetracycline] AdvReac Other Verified 04/06/23 19:51 Family History Father Heart disease Surgical History History of bladder suspension procedure History of hysterectomy Social History Smoking Status: Never smoker ROS <AIDEE Kearney - Last Filed: 04/06/23 20:47> ROS ED ROS Narrative Constitutional: Negative for fever, chills, malaise. Eyes: Negative for visual change. CVS: Negative for palpitations, chest pain, syncope. Respiratory: Negative for shortness of breath, cough GI: Negative for abdominal pain, nausea, vomiting. Neuro: Positive for motor changes. Negative for headache, sensory dysfunction. Musc: Negative for joint pain, swelling, trauma. EXAM <AIDEE Kearney - Last Filed: 04/06/23 20:47> Physical Exam Narrative Exam Narrative: CONST: Patient sitting in no acute distress. EYES: Normal inspection. PERRLA, horizontal nystagmus. NECK: Normal inspection. No midline spinal tenderness, no step off or crepitus. RESP: No respiratory distress, CTAB. CVS: Regular rate and rhythm, no murmur, no gallop. ABD: Soft and nontender, no guarding or rebound, nondistended. Back: Normal inspection. SKIN: Color normal, no rash, warm, dry, intact. EXTREMITIES: Normal appearance, no pedal edema. NEURO: Oriented x4. Face symmetric, 5/5 upper extremity strength, patient cannot lift her right leg off the bed but when bending her knee has 5/5 bilateral hip flexion, knee flexion/extension, DF/PF. Normal finger to nose and heel to wagner bilaterally. 2+ radial DP pulses. Sensation intact. No aphasia or dysarthria. PSYCH: Normal affect. Const Vital Signs: 04/06/23 19:27 04/06/23 19:51 04/06/23 20:51 Temperature 97.9 F 97.4 F L Temperature Source Temporal Pulse Rate 94 76 Respiratory Rate 18 11 L Respiratory Effort Normal Non-Labored Respiratory Depth Normal Respiratory Pattern Normal Blood Pressure 153/81 H 135/72 H Blood Pressure Mean 105 93 Pulse Ox 100 95 93 Oxygen Delivery Method Room Air Room Air Room Air 04/06/23 20:52 Temperature Temperature Source Pulse Rate 74 Respiratory Rate 15 Respiratory Effort Respiratory Depth Respiratory Pattern Blood Pressure 139/72 H Blood Pressure Mean 94 Pulse Ox 94 Oxygen Delivery Method Room Air <Dr. Darrell Reyna MD - Last Filed: 04/06/23 21:23> Physical Exam Const Vital Signs: 04/06/23 19:27 04/06/23 19:51 04/06/23 20:51 Temperature 97.9 F 97.4 F L Temperature Source Temporal Pulse Rate 94 76 Respiratory Rate 18 11 L Respiratory Effort Normal Non-Labored Respiratory Depth Normal Respiratory Pattern Normal Blood Pressure 153/81 H 135/72 H Blood Pressure Mean 105 93 Pulse Ox 100 95 93 Oxygen Delivery Method Room Air Room Air Room Air 04/06/23 20:52 Temperature Temperature Source Pulse Rate 74 Respiratory Rate 15 Respiratory Effort Respiratory Depth Respiratory Pattern Blood Pressure 139/72 H Blood Pressure Mean 94 Pulse Ox 94 Oxygen Delivery Method Room Air MDM <AIDEE Kearney - Last Filed: 04/06/23 20:47> [facility] Narrative Medical decision making narrative: Patient had a mechanical fall with closed head injury 2 weeks ago. No LOC. She is on Xarelto for remote DVT. 4 days ago she felt weakness in her right arm and leg. She has slight right leg drift. She had no upper extremity drift but did have right pronator drift. Otherwise her exam is normal. CBC is unremarkable. BMP shows glucose of 166, otherwise normal. Since ED attending interpretation of CT brain shows no acute process. Plan will be to admit patient for stroke work-up. Differential: Intracranial bleed, CVA Lab Data Attestation: I reviewed the patient's lab results. Labs: Laboratory Results - last 24 hr 04/06/23 20:03 WBC 7.6 RBC 4.78 Hgb 13.2 Hct 43.7 MCV 91.4 MCH 27.6 MCHC 30.2 L RDW Std Deviation 48.0 H RDW Coeff of Kathya 14.2 Plt Count 286 MPV 10.2 Immature Gran % (Auto) 0.400 Neut % (Auto) 60.1 Lymph % (Auto) 24.0 [place] % (Auto) 11.1 H Eos % (Auto) 3.3 Baso % (Auto) 1.1 H Absolute Neuts (auto) 4.6 Absolute Lymphs (auto) 1.82 Nucleated RBC % 0 Platelet Estimate ADEQUATE Plt Morphology Comment LARGE RBC Morphology N CHROM Anisocytosis RARE Macrocytosis RARE Sodium 136 Potassium 4.4 Chloride 102 Carbon Dioxide 29.0 Anion Gap 5 BUN 23 H Creatinine 0.78 Estim Creat Clear Calc 48.00 Est GFR (MDRD) Af Amer 93 Est GFR (MDRD) Non-Af 77 BUN/Creatinine Ratio 29.7 H Glucose 166 H Calcium 9.4 Radiography Diagnostic Testing: Clinical Impression(s) from Imaging Studies Brain CT 04/06/23 20:07 IMPRESSION: Minor atrophy and periventricular white matter ischemic change. No evidence for acute intracranial hemorrhage. Electronically Signed: Aly Sher MD at 20:45 EDT Reading Location ID and State: [facility] / [place] , Service support , <Dr. Darrell Reyna MD - Last Filed: 04/06/23 21:23> [facility] MDM Narrative Medical decision making narrative: Patient had a mechanical fall with closed head injury 2 weeks ago. No LOC. She is on Xarelto for remote DVT. 4 days ago she felt weakness in her right arm and leg. She has slight right leg drift. She had no upper extremity drift but did have right pronator drift. Otherwise her exam is normal. CBC is unremarkable. BMP shows glucose of 166, otherwise normal. Since ED attending interpretation of CT brain shows no acute process. Plan will be to admit patient for stroke work-up. Differential: Intracranial bleed, CVA Maribell: Patient was seen by me. I agree with the above extenders note, note was done by both me and the PA as I may have edited some of the above. Patient was evaluated by me, she has weakness on the right side both arm and leg. She did hit her head however this was 2 weeks ago and her symptoms are started 3 days ago therefore I am worried about a stroke I will admit her Lab Data Labs: Laboratory Results - last 24 hr 04/06/23 20:03 WBC 7.6 RBC 4.78 Hgb 13.2 Hct 43.7 MCV 91.4 MCH 27.6 MCHC 30.2 L RDW Std Deviation 48.0 H RDW Coeff of Kathya 14.2 Plt Count 286 MPV 10.2 Immature Gran % (Auto) 0.400 Neut % (Auto) 60.1 Lymph % (Auto) 24.0 [place] % (Auto) 11.1 H Eos % (Auto) 3.3 Baso % (Auto) 1.1 H Absolute Neuts (auto) 4.6 Absolute Lymphs (auto) 1.82 Nucleated RBC % 0 Platelet Estimate ADEQUATE Plt Morphology Comment LARGE RBC Morphology N CHROM Anisocytosis RARE Macrocytosis RARE Sodium 136 Potassium 4.4 Chloride 102 Carbon Dioxide 29.0 Anion Gap 5 BUN 23 H Creatinine 0.78 Estim Creat Clear Calc 48.00 Est GFR (MDRD) Af Amer 93 Est GFR (MDRD) Non-Af 77 BUN/Creatinine Ratio 29.7 H Glucose 166 H Calcium 9.4 Radiography Diagnostic Testing: Clinical Impression(s) from Imaging Studies Brain CT 04/06/23 20:07 IMPRESSION: Minor atrophy and periventricular white matter ischemic change. No evidence for acute intracranial hemorrhage. Electronically Signed: Aly Sher MD at 20:45 EDT , Discharge Plan Triage Chief Complaint: Fall ED Midlevel Provider: Crystal Fitch ED Provider: Darrell Renya Dx/Rx/DC Orders Clinical Impression: Diabetes, Acute right-sided weakness, Fall Prescriptions: No Action cranberry 500 mg capsule 500 mg PO DAILY Rx Instructions: administer with meals ascorbate calcium (vitamin C) 500 mg tablet 500 mg PO DAILY aspirin 81 mg tablet,delayed release (DR/EC) 81 mg PO DAILY potassium gluconate 595 mg (99 mg) tablet 595 mg PO DAILY AZO Urinary Tract Defense 162-162.5 mg tablet PO DAILY montelukast 10 MG tablet 10 mg PO DAILY metformin 500 mg tablet 500 mg PO TID meloxicam 15 MG tablet 15 mg PO DAILY fluticasone propionate 1 SPRAY spray,suspension 2 spray NASAL DAILY pravastatin 20 mg tablet 20 mg PO QHS Qty: 90 3RF Xarelto 10 mg tablet 10 mg PO DAILY Qty: 90 3RF lisinopril 20 mg tablet 20 mg PO DAILY Qty: 90 3RF Primary Care Provider: Allison Hines Referrals: Allison Hines MD [Primary Care Provider] - Disposition Disposition: Acute Care Hospital [facility]
--- NOTE | 2023-04-06 20:07 | CT_ITS ---
STUDY: CT BRAIN WITHOUT CONTRAST REASON FOR EXAM: Female, 72 years old. head injury RADIATION DOSAGE (If Supplied By Facility): CTDIvol = ( 44.99 ) mGy, DLP = ( 829.85 ) mGycm TECHNIQUE: Transaxial CT imaging of the brain was performed without administration of intravenous contrast material. Individualized dose optimization techniques were used for this CT. COMPARISON: March 31, 2018 FINDINGS: Normal soft tissue structures. Normal calvarium. Mild calcific plaquing of the cavernous carotids Minor atrophy and periventricular white matter ischemic change. Normal basal ganglia and thalami. Normal brainstem. Normal cerebellum. There is no intracranial hemorrhage. There are no findings of an acute ischemic infarction. Postsurgical changes of the orbits Normal visualized paranasal sinuses. CT/Brain/Head without Contrast IMPRESSION: Minor atrophy and periventricular white matter ischemic change. No evidence for acute intracranial hemorrhage. Electronically Signed: Aly Sher MD at 20:45 EDT ,
[2023-04-06 20:10] LABS: Absolute Lymphocyte Count 1.82 X10^3/uL (0.83-4.51); Absolute Neutrophil Count 4.6 X10^3/uL (2.0-7.7); Basophil# 0.08 X10^3/uL; Basophil% 1.1 % (0-1); Eosinophil# 0.25 X10^3/uL; Eosinophils% 3.3 % (0-5); Hematocrit 43.7 % (37-47); Hemoglobin 13.2 g/dL (12.0-15.0); Lymphocyte # 1.82 X10^3/ul (0.83-4.51); Mean Corp Hgb Conc 30.2 g/dL (32-36); Mean Corpuscular Hgb 27.6 pg (27.0-32.0); Mean Corpuscular Volume 91.4 fL (81-99); Mean Platelet Vol. 10.2 fl (6.2-12.0); Monocyte# 0.84 X10^3/uL; Monocyte% 11.1 % (0-10); NRBC Flagged by Analyzer 0 % (0-5); Neutrophil # 4.57 X10^3/uL (2.7-7.7); Neutrophil % 60.1 % (47-70); POSITIVE COUNT YES; Platelet Count 286 K/mm3 (150-450); RBC Distribution Width CV 14.2 % (11.6-14.6); Red Blood Count 4.78 M/mm3 (4.2-5.4); White Blood Count 7.6 K/mm3 (4.4-11.0)
[2023-04-06 20:22] LABS: Anion Gap 5 (5-15); BUN 23 mg/dL (7-18); BUN/Creat Ratio 29.7 RATIO (10-20); Calcium,Total 9.4 mg/dL (8.5-10.1); Chloride 102 mmol/L (98-107); Creatinine, Serum 0.78 mg/dL (0.55-1.02); EST Glomerular Filtration Rate 77 mL/min (>60); Est Glom Filt Rate - Afr Amer 93 mL/min (>60); Glucose 166 mg/dL (74-106); Potassium 4.4 mmol/L (3.5-5.1); Sodium Level 136 mmol/L (136-145)
[2023-04-06 20:42] LABS: Differential Indicated SCAN CRITERIA MET
[2023-04-06 20:43] LABS: Platelet Estimate ADEQUATE (ADEQ); Platelet Morphology LARGE; Red Cell Morphology N CHROM NORMAL (NORM C&C)
[2023-04-06 20:44] LABS: Anisocytosis RARE; Macrocytosis RARE
--- NOTE | 2023-04-06 21:07 | HP.PCM.HOS_ITS ---
HPI - General General Date of Admission: 04/06/23 Date of Service: 04/06/23 Chief Complaint: Right upper extremity evaluation with weakness HPI Narrative MOLLY GREEN, is a 72 F with a significant history of obesity; essential hypertension and diabetes mellitus who presents emergency department with right upper and right lower extremity weakness that started 3 days before presentation. Of note about 2 weeks before presentation patient fell due to missing a step from her yard. She hit the back of her head at that time. She had lightheadedness following the fall. And then 3 days before presentation developed above symptoms of weakness. [facility] Medical History Asthma Diabetes mellitus, type II Essential (primary) hypertension Hyperlipidemia Obesity Paresthesia Recurrent deep vein thrombosis (DVT) (10/2018) Uterine prolapse Vertigo Home Medications montelukast 10 mg tablet 10 mg PO DAILY seasonal allergies 08/24/13 [History Last Taken 03/31/18 07:00] fluticasone propionate 50 mcg/actuation nasal spray,suspension 2 spray NASAL DAILY allergies 03/31/18 [History Last Taken Unknown] meloxicam 15 mg tablet 15 mg PO DAILY arthritis 03/31/18 [History Last Taken 03/31/18 07:00] ascorbate calcium (vitamin C) 500 mg tablet 500 mg PO BID 11/08/21 [History Last Taken Unknown] aspirin 81 mg tablet,delayed release 81 mg PO DAILY 11/08/21 [History Last Taken Unknown] cranberry 500 mg capsule 500 mg PO BID 11/08/21 [History Last Taken Unknown] metformin 500 mg tablet 500 mg PO TID 11/08/21 [History Last Taken Unknown] pravastatin 20 mg tablet 20 mg PO QHS cholesterol #90 tabs 05/24/22 [Rx Last Taken Unknown] rivaroxaban 10 mg tablet (Xarelto) 10 mg PO DAILY #90 tabs 07/25/22 [Rx Last Taken Unknown] methenamine-sodium salicylate 162 mg-162.5 mg tablet (AZO Urinary Tract Defense) tab PO DAILY 11/28/22 [History Last Taken Unknown] potassium gluconate 595 mg (99 mg) tablet 595 mg PO DAILY 11/28/22 [History Last Taken Unknown] lisinopril 20 mg tablet 20 mg PO DAILY blood pressure #90 tabs 01/09/23 [Rx Last Taken Unknown] Bifidobacterium infantis PO 04/06/23 [History Last Taken Unknown] loratadine 10 mg tablet (Claritin) 10 mg PO DAILY 04/06/23 [History Last Taken U nknown] vitamins-lipotropics .ROUTE 04/06/23 [History Last Taken Unknown] Allergy/AdvReac Type Severity Reaction Status Date / Time ciprofloxacin [From Cipro] AdvReac Other Verified 04/06/23 19:51 ciprofloxacin HCl AdvReac Other Verified 04/06/23 19:51 [From Cipro] tetracycline [Tetracycline] AdvReac Other Verified 04/06/23 19:51 Family History Father Heart disease Surgical History History of bladder suspension procedure History of hysterectomy Social History Smoking Status: Never smoker ROS ROS Narrative Pertinent positives and pertinent negatives as noted in HPI. All other systems were reviewed and are negative Vital Signs Vital Signs Vital Signs: 04/06/23 19:27 04/06/23 19:51 04/06/23 20:51 Temperature 97.9 F 97.4 F L Temperature Source Temporal Pulse Rate 94 76 Respiratory Rate 18 11 L Respiratory Effort Normal Non-Labored Respiratory Depth Normal Respiratory Pattern Normal Blood Pressure 153/81 H 135/72 H Blood Pressure Mean 105 93 Pulse Ox 100 95 93 Oxygen Delivery Method Room Air Room Air Room Air 04/06/23 20:52 Temperature Temperature Source Pulse Rate 74 Respiratory Rate 15 Respiratory Effort Respiratory Depth Respiratory Pattern Blood Pressure 139/72 H Blood Pressure Mean 94 Pulse Ox 94 Oxygen Delivery Method Room Air Weight Weight: 86.7 kg Body Mass Index (BMI) 29.9 Physical Exam Narrative Physical exam: General: Well-nourished, well-developed. Head: Normocephalic, atraumatic, no tenderness Eyes: Vision is grossly intact. EOMI ENT, no trauma, moist mucous membranes, no rhinorrhea Neck: Nontender, No thyromegaly. CVS: Regular rate and rhythm. S1-S2 present. No murmur, gallop or rub. Respiratory : clear to auscultation bilaterally, chest wall nontender Abdomen: Soft, nontender, nondistended, normal bowel sounds, no masses : Deferred Back: Nontender, no CVA tenderness, no midline spinal tenderness, deformities, step-offs Extremities: Nontender full range of motion, no trauma Skin: Normal color, no trauma, abrasions Neuro: Alert, oriented, cranial nerves II through XII grossly intact. Decreased flexion of right leg compared to left leg. Strength 5 out of 5 in all extremities. Not hyperreflexia in deep tendon reflexes of the elbow and knee. Psychiatry: Normal mood. Normal affect. Not depressed. Not anxious. Results Lab / Micro Data 04/06/23 20:03 04/06/23 20:03 Labs: Laboratory Results - last 24 hr 04/06/23 20:03: WBC 7.6, RBC 4.78, Hgb 13.2, Hct 43.7, MCV 91.4, MCH 27.6, MCHC 30.2 L, RDW Std Deviation 48.0 H, RDW Coeff of Kathya 14.2, Plt Count 286, MPV 10.2, Immature Gran % (Auto) 0.400, Neut % (Auto) 60.1, Lymph % (Auto) 24.0, [place] % (Auto) 11.1 H, Eos % (Auto) 3.3, Baso % (Auto) 1.1 H, Absolute Neuts (auto) 4.6, Absolute Lymphs (auto) 1.82, Nucleated RBC % 0, Platelet Estimate ADEQUATE, Plt Morphology Comment LARGE, RBC Morphology N CHROM, Anisocytosis RARE, Macrocytosis RARE, Sodium 136, Potassium 4.4, Chloride 102, Carbon Dioxide 29.0, Anion Gap 5, BUN 23 H, Creatinine 0.78, Estim Creat Clear Calc 48.00, Est GFR (MDRD) Af Amer 93, Est GFR (MDRD) Non-Af 77, BUN/Creatinine Ratio 29.7 H, Glucose 166 H, Calcium 9.[address] 04/06/23 20:07 IMPRESSION: Minor atrophy and periventricular white matter ischemic change. No evidence for acute intracranial hemorrhage. Electronically Signed: Aly Sher MD at 20:45 EDT Reading Location ID and State: [facility] / [place] , Service support , Assessment & Plan Assessment/Plan (1) Fall: QUALIFIERS: Encounter type: subsequent encounter Qualified Code(s): W19.XXXD - Unspecified fall, subsequent encounter (2) Acute right-sided weakness: PLAN: Plan Fall/strokelike symptoms Serial NINDS NIH Scale ordered Impression of head CT by radiology:Minor atrophy and periventricular white matter ischemic change. No evidence for acute intracranial hemorrhage Upon my personal head CT image review: I agree with radiologist interpretation Lipid profile and A1c ordered. Physical therapy, occupational therapy to work with patient. N.p.o. until bedside swallow eval. Daily aspirin. High intensity statin Outside window permissive hypertension. MRI/MRA of head; brain; and neck. Echocardiogram ordered. Hypertension Blood pressure is not within goal Home blood pressure medication continued. Trend blood pressure and adjust blood pressure medications. Diabetes mellitus Blood glucose is stable. Hold home metformin. Monitor Accu-Cheks Correction scale insulin ordered. DVT prophylaxis SCDs ordered Time spent in the patient's overall evaluation,decision-making process, review of diagnostic data, adjustment of management, discussion with other providers, nursing nursing and ancillary staff involved in patient's care documentation, 44 minutes. Charges/Coding Visit Charges Inpatient E&M: 73379 Init Hosp L2
--- NOTE | 2023-04-06 22:11 | MRI_ITS ---
STUDY: MRI BRAIN WITHOUT CONTRAST REASON FOR EXAM: Female, 72 years old. cva TECHNIQUE: Standardized multiplanar fat and water weighted pulse sequences were obtained. COMPARISON: None. FINDINGS: Normal size of the ventricles and extra-axial spaces for the patient''s age. Normal white matter tracts of the supratentorial brain. There is no evidence for recent intracranial ischemia or other cause of cytotoxic edema on diffusion weighted imaging (DWI). Normal T2* images of the brain without demonstrated susceptibility artifact. There is no demonstrated hemosiderin stain. Normal bilateral basal ganglia. Normal thalami. There is no extra-axial fluid accumulation. Normal flow voids within the major intracranial circulation suggesting patency by spin echo criteria. Normal sella turcica, pituitary gland, infundibular stalk, optic chiasm and hypothalamus. Normal tectal plate and pineal gland. Normal midbrain, haylie and medulla. Normal cerebellum. Normal basal cisterns. Normal bilateral temporal bones. Normal bilateral internal auditory canals. There are bilateral ocular lens implants with otherwise normal intraorbital contents. Normal visualized paranasal sinuses. Normal calvarium and skull base. Normal visualized soft tissue structures. Normal visualized upper cervical spine. MRI/Brain without Contrast IMPRESSION: Normal unenhanced MRI of the brain. Electronically Signed: Mirza Mercer MD at 13:56 EDT ,
--- NOTE | 2023-04-06 22:11 | ECHOD_ITS ---
Reason For Study: TIA/CVA Procedure This was a 2D Doppler, Color Flow transthoracic echocardiogram. Exam performed portable in patient room. Left Ventricle Normal LV size. Moderate concentric left ventricular hypertrophy. The left ventricular ejection fraction is 70 %. Normal diastology for age. Right Ventricle Normal right ventricle. Atria The left atrium is moderately enlarged. Normal right atrium. Bubble contrast study is negative for PFO/ASD. Mitral Valve Mild diffuse mitral valve thickening. Trivial mitral valve insufficiency. Tricuspid Valve Trivial tricuspid valve insufficiency. Unable to estimate RV systolic pressure due to insufficient tricuspid regurgitant envelope. Aortic Valve Normal aortic valve. Pulmonic Valve The pulmonic valve is not well visualized. Great Vessels Normal sized aortic root. Medication Performed a rapid injection of agitated mix of 9 cc saline and 1cc air to assess for atrial septal defect. MMode/2D Measurements & Calculations LVIDd: 4.1 cm IVSd: 1.4 cm Ao root diam: 3.2 cm LVIDs: 2.4 cm LVPWd: 0.85 cm LA dimension: 4.2 cm RVDd: 3.4 cm FS: 42.8 % LAV(MOD-bp): 56.2 ml LVAd ap4: 20.6 cm2 SV(MOD-sp4): 34.4 ml LAV(MOD-bp) Indexed: 28.3 ml/m2 LVLd ap4: 6.7 cm LAV(MOD-sp2): 55.3 ml EDV(MOD-sp4): 52.3 ml LAV(MOD-sp4): 47.1 ml EDV(sp4-el): 54.1 ml LVAs ap4: 10.7 cm2 LVLs ap4: 5.4 cm ESV(MOD-sp4): 17.8 ml ESV(sp4-el): 17.7 ml EF(MOD-sp4): 65.9 % EF(sp4-el): 67.2 % SV(sp4-el): 36.4 ml LA A4 area: 17.8 cm2 RA A4 area: 13.1 cm2 Time Measurements MV dec time: 0.27 sec Doppler Measurements & Calculations MV E max cali: 67.6 cm/sec Lat Peak E' Cali: 13.0 cm/sec Med Peak E' Cali: 9.1 cm/sec MV A max cali: 80.2 cm/sec E/E' lat: 5.2 E/E' med: 7.4 MV E/A: 0.84 MV V2 max: 104.1 cm/sec MV P1/2t max cali: 104.1 cm/sec Ao V2 max: 128.0 cm/sec MV max P.3 mmHg MV P1/2t: 114.2 msec Ao max P.6 mmHg MV V2 mean: 60.7 cm/sec Ao V2 mean: 91.7 cm/sec MV mean P.7 mmHg MV dec slope: 266.8 cm/sec2 Ao mean P.8 mmHg MV V2 VTI: 29.2 cm MVA(P1/2t): 1.9 cm2 Ao V2 VTI: 28.9 cm AV (velocity ratio): 1.0 LV V1 max: 125.9 cm/sec PA V2 max: 102.6 cm/sec TR max cali: 214.1 cm/sec LV V1 max P.3 mmHg PA V2 mean: 71.5 cm/sec TR max P.3 mmHg LV V1 mean P.7 mmHg LV V1 mean: 91.0 cm/sec LV V1 VTI: 30.0 cm ECHO/Echo Complete Interpretation Summary Moderate concentric left ventricular hypertrophy. The left ventricular ejection fraction is 70 %. The left atrium is moderately enlarged. Mild diffuse mitral valve thickening. Ordering Physician: Lance Torres Performed By: Chu Guillaume RCS
[2023-04-06] MEDS: Ascorbic Acid 500 MG Tablet PO (23:07)
[2023-04-06] MEDS: Atorvastatin Calcium 40 MG Tablet PO (23:07)
[2023-04-06 23:33] LABS: Bedside Glucose 150 mg/dL (74-106)
[2023-04-07 00:09] VITALS: BMI 30.3
[2023-04-07 02:20] VITALS: BP 128/75; PULSE 74; RESP 18; TEMP 36.7; O2SAT 97
[2023-04-07 05:25] VITALS: BP 132/65; PULSE 66; RESP 18; TEMP 36.7; O2SAT 96
[2023-04-07 06:56] LABS: Cholesterol 144 mg/dL (200); High Density Lipoprotein 64 mg/dL; Triglycerides 79 mg/dL; Very Low Density Lipoprotein 16 mg/dL (5-40)
[2023-04-07 06:57] LABS: Bedside Glucose 139 mg/dL (74-106)
[2023-04-07 07:21] LABS: Hemoglobin A1c 6.8 % (3.8-5.6)
[2023-04-07 07:30] VITALS: O2SAT 96
[2023-04-07 09:19] VITALS: BP 122/70; PULSE 72; RESP 18; TEMP 36.4; O2SAT 94
[2023-04-07] MEDS: Fluticasone 0.05% 1 SPRAY NASAL.SRY 2 SPRAY NASAL (09:27)
[2023-04-07] MEDS: Montelukast 10 MG Tablet PO (09:27)
[2023-04-07] MEDS: Aspirin E.C. 81 MG Tablet PO (09:27)
[2023-04-07] MEDS: Loratadine 10 MG Tablet PO (09:27)
[2023-04-07] MEDS: Ascorbic Acid 500 MG Tablet PO (09:27)
[2023-04-07] MEDS: LORazepam 0.5 MG Tablet PO (11:50)
[2023-04-07 12:14] LABS: Bedside Glucose 108 mg/dL (74-106)
--- NOTE | 2023-04-07 13:18 | CT_ITS ---
STUDY: CTA HEAD AND NECK WITH CONTRAST REASON FOR EXAM: Female, 72 years old. right sided weakness RADIATION DOSAGE (If Supplied By Facility): CTDIvol = ( 23.06 ) mGy, DLP = ( 684.38 ) mGycm TECHNIQUE: CT angiography was performed with a multi-detector CT scanner. Data acquisition was obtained from the skull base through the vertex following intravenous administration of IV 100mL [id number]-370. MIP images were reconstructed from the axial data set. Post-processing of the angiographic images was performed, with multiplanar reformation and 3D reconstruction. Individualized dose optimization techniques were used for this CT. COMPARISON: No relevant priors. FINDINGS: Normal bilateral petrous carotid arteries. There is calcified plaque formation of the right cavernous carotid artery, without a cross-sectional luminal stenosis. There is calcified plaque formation of the left cavernous carotid artery, without a cross-sectional luminal stenosis. Normal right A1 segments of the anterior cerebral artery. Normal left A1 segments of the anterior cerebral artery. Normal intact anterior communicating artery (ACOM). Normal bilateral A2 segments of the anterior cerebral arteries. Normal right M1 and M2 segments of the middle cerebral arteries, with a normal M1 bifurcation. Normal left M1 and M2 segments of the middle cerebral arteries, with a normal M1 bifurcation. Normal right posterior communicating artery (PCOM). Normal left posterior communicating artery (PCOM). Normal bilateral vertebral arteries. Normal basilar artery with a normal basilar bifurcation. The visualized bilateral superior cerebellar (SCA) arteries are normal. Normal bilateral P1, P2 and visualized P3 segments of the posterior cerebral arteries. There is no demonstrated aneurysm of the [place] of [place]. There is no demonstrated abnormality of the visualized brain. AORTIC ARCH: There is a bovine origin of the great vessels arising from the aortic arch with a common origin of the brachiocephalic and left common carotid artery. Normal origin of the left subclavian artery. Normal origins of the brachiocephalic, left common carotid, and left subclavian arteries. RIGHT CAROTID ARTERIES: Normal right common carotid artery (CCA). There is mild atherosclerotic plaque formation with minimal narrowing of the right carotid bulb. Normal origin of the right internal carotid (ICA) artery without a hemodynamically significant stenosis. Normal visualized cervical portion of the right internal carotid artery. Normal origin of the right external carotid artery (ECA). LEFT CAROTID ARTERIES: Normal left common carotid artery (CCA). There is mild atherosclerotic plaque formation with minimal narrowing of the left carotid bulb. Normal origin of the left internal carotid (ICA) artery without a hemodynamically significant stenosis. Normal visualized cervical portion of the left internal carotid artery. Normal origin of the left external carotid artery (ECA). VERTEBRAL ARTERIES: Normal bilateral vertebral arteries. CT/CTA Head AND Neck W/ Contrast IMPRESSION: Normal CTA Head with contrast. Bovine arch. Mild amount calcified plaque at the carotid bifurcations but no measurable stenosis. Patent vertebral arteries bilaterally. Electronically Signed: Mirza Mercer MD at 14:56 EDT ,
[2023-04-07 14:50] VITALS: BP 119/63; PULSE 69; RESP 16; TEMP 36.7; O2SAT 96
--- NOTE | 2023-04-07 15:16 | NURSING ---
Pt off floor for MRI at 1200 returned at 1450. NIH, vitals, and assessment completed upon return.
[2023-04-07 15:52] VITALS: BMI 30.3
--- NOTE | 2023-04-07 16:14 | DCINST_ITS ---
Discharge Instructions Diet Discharge Diet: 1800 Calorie Control Diet Activity Discharge Activity: Return to Normal Activity Weight Bearing Status: Full weight bearing Follow Up Care Test Results: Test results from this visit will be discussed in further detail at your follow- up appointment, if applicable. Discharge Plan Admission Admit Date/Time: 04/06/23 21:15 Primary Reason for Your Visit: right sided weakness Attending Provider: Car Singleton Primary Care Provider: Allison Hines Consulting Providers: Lance Torres Discharge Orders/Prescriptions Prescriptions: Continued cranberry 500 mg capsule 500 mg PO BID Rx Instructions: administer with meals ascorbate calcium (vitamin C) 500 mg tablet 500 mg PO BID aspirin 81 mg tablet,delayed release (DR/EC) 81 mg PO DAILY AZO Urinary Tract Defense 162-162.5 mg tablet PO DAILY Hold Instructions: Pt has been DC'd montelukast 10 MG tablet 10 mg PO DAILY metformin 500 mg tablet 500 mg PO TID meloxicam 15 MG tablet 15 mg PO DAILY fluticasone propionate 1 SPRAY spray,suspension 2 spray NASAL DAILY loratadine [Claritin] 10 mg tablet 10 mg PO DAILY vitamins-lipotropics [Lipo-Flavonoid Plus] .ROUTE Bifidobacterium infantis [Align] PO pravastatin 20 mg tablet 20 mg PO QHS Qty: 90 3RF Xarelto 10 mg tablet 10 mg PO DAILY Qty: 90 3RF lisinopril 20 mg tablet 20 mg PO DAILY Qty: 90 3RF Discontinued potassium gluconate 595 mg (99 mg) tablet 595 mg PO DAILY Referrals / Follow Up: Allison Hines MD [Primary Care Provider] - Within 2 Weeks Disposition Disposition (needs filled in before D/C Order can be placed): Home, Self Care
--- NOTE | 2023-04-07 16:33 | PCM.DC.SUM ---
Providers Date of Admission: 04/06/23 Date of Discharge: 04/07/23 Primary Care Physician: Dr. Allison Hines MD Reason For Visit: STROKELIKE SYMPTOMS Diagnosis Discharge Diagnosis (1) Fall: Status: Acute Code(s): W19.XXXA - Unspecified fall, initial encounter Qualifiers: Encounter type: subsequent encounter Qualified Code(s): W19.XXXD - Unspecified fall, subsequent encounter (2) Acute right-sided weakness: Status: Acute Code(s): R53.1 - Weakness Plan 1. Transient weakness in the left arm and left leg-etiology unclear #2 type 2 diabetes #3 essential hypertension #4 hyperlipidemia #5 chronic use of anticoagulant Medications at Discharge Home Medications montelukast 10 mg tablet 10 mg PO DAILY seasonal allergies 08/24/13 fluticasone propionate 50 mcg/actuation nasal spray,suspension 2 spray NASAL DAILY allergies 03/31/18 meloxicam 15 mg tablet 15 mg PO DAILY arthritis 03/31/18 ascorbate calcium (vitamin C) 500 mg tablet 500 mg PO BID 11/08/21 aspirin 81 mg tablet,delayed release 81 mg PO DAILY 11/08/21 cranberry 500 mg capsule 500 mg PO BID 11/08/21 metformin 500 mg tablet 500 mg PO TID 11/08/21 pravastatin 20 mg tablet 20 mg PO QHS cholesterol #90 tabs 05/24/22 rivaroxaban 10 mg tablet (Xarelto) 10 mg PO DAILY #90 tabs 07/25/22 methenamine-sodium salicylate 162 mg-162.5 mg tablet (AZO Urinary Tract Defense) tab PO DAILY 11/28/22 lisinopril 20 mg tablet 20 mg PO DAILY blood pressure #90 tabs 01/09/23 Bifidobacterium infantis PO 04/06/23 loratadine 10 mg tablet (Claritin) 10 mg PO DAILY 04/06/23 vitamins-lipotropics .ROUTE 04/06/23 Hospital Course Operations None Procedures 2-D Echocardiogram Summary of Care Provided Minutes Spent on Discharge: 31 Hospital Course: This 72-year-old white female was seen in the emergency room at [facility] with complaints of transient weakness in her right arm and leg, she had noticed that approximately 4 days prior she had problems flushing her commode by pushing her fingers down on the top of the commode. Patient takes Xarelto chronically for history of remote DVT. She was instructed to go to the emergency room by her PCPs office due to her complaints. Work-up in the emergency room including imaging studies was unremarkable, patient was placed in observation status on PCU and underwent an echocardiogram which was unremarkable and an MRI of the brain which did not show any evidence of acute pathology. CTA of the head and neck did not show any evidence of significant occlusive disease. On 04/07/2023, patient was seen and examined: On examination she appeared in good health and spirits, she does not appear to be in any distress. Vital signs as documented. Skin warm and dry and without overt rashes. Neck without JVD, thyroid appears normal, trachea is midline, neck is supple. Lungs clear, normal air movement was noted. Heart exam notable for regular rhythm, normal sounds and absence of murmurs, rubs or gallops. Abdomen unremarkable and without evidence of organomegaly, masses, or abdominal aortic enlargement, bowel sounds are present in all 4 quadrants, no abdominal tenderness was noted. Extremities nonedematous, no cyanosis was noted, no clubbing was noted. Neuro: Cranial nerves II through XII are grossly intact, no focal motor deficits were noted, sensation to light touch and pinprick is intact, motor exam 5/5 throughout. Psych: Patient is alert and oriented x3, she does not appear anxious or depressed, she does not appear agitated. Patient was discharged home in stable condition on 04/07/2023. Weight / BMI Weight Weight: 85.2 kg Body Mass Index (BMI) 30.3 ABG / Lab / Microbiology Data 04/06/23 20:03 04/06/23 20:03 Laboratory: Laboratory Results - last 24 hr 04/06/23 20:03: WBC 7.6, RBC 4.78, Hgb 13.2, Hct 43.7, MCV 91.4, MCH 27.6, MCHC 30.2 L, RDW Std Deviation 48.0 H, RDW Coeff of Kathya 14.2, Plt Count 286, MPV 10.2, Immature Gran % (Auto) 0.400, Neut % (Auto) 60.1, Lymph % (Auto) 24.0, [place] % (Auto) 11.1 H, Eos % (Auto) 3.3, Baso % (Auto) 1.1 H, Absolute Neuts (auto) 4.6, Absolute Lymphs (auto) 1.82, Nucleated RBC % 0, Platelet Estimate ADEQUATE, Plt Morphology Comment LARGE, RBC Morphology N CHROM, Anisocytosis RARE, Macrocytosis RARE, Sodium 136, Potassium 4.4, Chloride 102, Carbon Dioxide 29.0, Anion Gap 5, BUN 23 H, Creatinine 0.78, Estim Creat Clear Calc 48.00, Est GFR (MDRD) Af Amer 93, Est GFR (MDRD) Non-Af 77, BUN/Creatinine Ratio 29.7 H, Glucose 166 H, Calcium 9.4 04/06/23 23:02: POC Glucose 150 H 04/07/23 06:08: Hemoglobin A1c 6.8 H, Triglycerides 79, Cholesterol 144, LDL Cholesterol 64, VLDL Cholesterol 16, HDL Cholesterol 64 04/07/23 06:35: POC Glucose 139 H 04/07/23 11:55: POC Glucose 108 H Radiography Diagnostic Testing: Radiology Impression Brain CT 04/06/23 20:07 IMPRESSION: Minor atrophy and periventricular white matter ischemic change. No evidence for acute intracranial hemorrhage. Electronically Signed: Aly Sher MD at 20:45 EDT , Brain MRI 04/06/23 22:11 IMPRESSION: Normal unenhanced MRI of the brain. Electronically Signed: Mirza Mercer MD at 13:56 EDT , Echocardiogram 04/06/23 22:11 Interpretation Summary Moderate concentric left ventricular hypertrophy. The left ventricular ejection fraction is 70 %. The left atrium is moderately enlarged. Mild diffuse mitral valve thickening. Ordering Physician: Lance Torres Performed By: Chu Guillaume, KELBY Head/Neck CTA 04/07/23 13:18 IMPRESSION: Normal CTA Head with contrast. Bovine arch. Mild amount calcified plaque at the carotid bifurcations but no measurable stenosis. Patent vertebral arteries bilaterally. Electronically Signed: Mirza Mercer MD at 14:56 EDT Reading Location ID and State: [address] [place] [address] Tel , Service support , D/C Instructions Discharge Diet: 1800 Calorie Control Diet Weight Bearing Status: Full weight bearing Meaningful Use Info Meaningful Use Diagnoses (Choose all that apply): None applicable Discharge Plan Admission Admit Date/Time: 04/06/23 21:15 Primary Reason for Your Visit: right sided weakness Attending Provider: Car Singleton Primary Care Provider: Allison Hines Consulting Providers: Lance Torres Discharge Orders/Prescriptions Prescriptions: Continued cranberry 500 mg capsule 500 mg PO BID Rx Instructions: administer with meals ascorbate calcium (vitamin C) 500 mg tablet 500 mg PO BID aspirin 81 mg tablet,delayed release (DR/EC) 81 mg PO DAILY AZO Urinary Tract Defense 162-162.5 mg tablet PO DAILY Hold Instructions: Pt has been DC'd montelukast 10 MG tablet 10 mg PO DAILY metformin 500 mg tablet 500 mg PO TID meloxicam 15 MG tablet 15 mg PO DAILY fluticasone propionate 1 SPRAY spray,suspension 2 spray NASAL DAILY loratadine [Claritin] 10 mg tablet 10 mg PO DAILY vitamins-lipotropics [Lipo-Flavonoid Plus] .ROUTE Bifidobacterium infantis [Align] PO pravastatin 20 mg tablet 20 mg PO QHS Qty: 90 3RF Xarelto 10 mg tablet 10 mg PO DAILY Qty: 90 3RF lisinopril 20 mg tablet 20 mg PO DAILY Qty: 90 3RF Discontinued potassium gluconate 595 mg (99 mg) tablet 595 mg PO DAILY Referrals / Follow Up: Allison Hines MD [Primary Care Provider] - Within 2 Weeks Disposition Disposition (needs filled in before D/C Order can be placed): Home, Self Care Charges/Coding Visit Charges Inpatient E&M: 58020 Disch Hosp >30min
[2023-04-07] MEDS: Rivaroxaban 10 MG Tablet PO (16:45)
--- NOTE | 2023-04-07 17:01 | CASEMGMT ---
Patient has order for discharge. RN CM in to discuss needs at discharge. Patient denies needs or concerns at this time. Patient had no further questions or concerns.
[2023-04-07 17:03] LABS: Bedside Glucose 122 mg/dL (74-106)
== END 2023-04-07 16:33 | disposition home or self-care (01) ==
LOC: ED 21:23 → PCU 21:35
PROVIDERS: Physician Assistant; Admitting Provider Hospitalist; Emergency Provider Emergency Medicine; PCP Internal Medicine; Visit Provider Internal Medicine
DX: R53.1 Weakness (principal); E11.9 Type 2 diabetes mellitus without complications; E78.5 Hyperlipidemia, unspecified; R42 Dizziness and giddiness; I10 Essential (primary) hypertension; J45.909 Unspecified asthma, uncomplicated; Z86.718 Personal history of other venous thrombosis and embolism; Z79.01 Long term (current) use of anticoagulants; Z79.899 Other long term (current) drug therapy; Z79.82 Long term (current) use of aspirin; Z79.84 Long term (current) use of oral hypoglycemic drugs; Z91.81 History of falling
CPT/HCPCS: 36415; 70450; 70496; 70498; 70551; 80048; 80061; 82962; 83036; 85025; 93005; 93306; 94762; 97161; 97165; 97802; 99221; 99284; Q9957; Q9967; A4216; G0378

== ENCOUNTER 2023-05-17 11:00 | Outpatient (RCR) | payer MEDICARE, OTHER, SELFPAY ==
--- NOTE | 2023-04-24 13:51 | HP.PTEVAL_ITS ---
Patient's Visit Information Visit Information Visit Information: MOLLY GREEN is a 72 year old F referred to Physical Therapy by AURORA Love with a diagnosis of falls, stroke like symptoms. Date of Evaluation: 04/24/23 Physical Therapist: Ashkan Villatoro, DPT, OCS, CSCS Visit Plan Frequency: 2x /Week Duration: 4-6 Weeks Plan: 2x/week for 4 weeks for... 1. progress HEP for balance ec , hip strength, funcitonal LE strength adn general overall program to I at home. Given marching and heel raises today and progress to mat hip and funcitonal sink step up strength, general strength, progress all to HEP as far as safety allows. Subjective Subjective: Dr. Reynolds FRENCH EDGE OPERATOR sent her here to strengthen R leg. I had TIA 1-2 weeks ago. hard to flush toilet with R hand and hard to walk R leg. Hand improved quickly. Had fallen 3 weeks prior hitting head. Balance is awful, last year is worse. 2-3 falls. Did feel spacy after fall a month ago. Went to ER after fall and had CATSCAN and negative but history of possible stroke, EKG was normal. Possible TIA, went to doctor the next day last week and sent for therapy. Has to be careful with walking. No other treatments, just sent for therapy from Dr. Barger office. Overall she is getting stroneger and seeing improvements. 20% better overall. Has no trouble walking but slows down to avoid falling. Baance is crummy, does not want cane or walker. Has a walker in garage. No spinning, no neuropathy. Sleep is not great maybe due to too much caffeine. 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 No regular exercise. Hobbies: reading and cross [employer]. 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 Objective Objective: L trendelenberg. R side stroke effected. Pt walks with L trendelenberg gait. Safe dn I on firm flat surface, overexaggerates balance fears with ec. Steps are reciprocal but much weaker on L and needing to pull with UE L>R. Avoids FW weight shift. romberg eo 30, ec 30 but arms go up. hip strength symmetrtical to testing at 3+ abd and ext and 3 flexion. Obviously functionally weaker on steps and gait in L hip. knees 4-/5 B, ankles 4/5 B . AROM WFL, some tightness in quads and HS midly. reflexes 1/3 patella and achilles B, Sensation LE WNL to gross light touch B. coordination to reciprocal toe and heel tap is good. UE AROM WFL. No obvious deficits from stroke but balance and overall general strengh is poor and likely was prior to stroke. Balance/Special Test Scores Functional Gait Assessment Score: 22 % Disability: 26.6700 Lower Extremity Functional Score: 28 Goals Goal 1:: FGA to diminish fallr isk Goal Time Frame: 4-6 Weeks Goal 2:: Pt feel balance back better than normal and strength back to normal 100% Goal Time Frame: 4-6 Weeks Goal 3:: LEFS score 50 Goal Time Frame: 4-6 Weeks Goal 4:: Climb steps with one rail without pulling with UE Goal Time Frame: 4-6 Weeks Rehabilitation Potential Rehabilitation Potential: Good Anticipated Interventions Patient/Client Instruction: Educate patient on: Condition and Plan of Care For the Purpose of:: To increase ROM, To improve nutrient delivery to tissue, To improve muscle performance and motor function, To increase tolerance to activity/condition/position, To improve ability of physical actions for home/community/work/leisure and To improve gait and locomotor functions Therapeutic Exercise to Include: Strength training, Balance training, Flexibilty training, Gait and locomotor training, Passive ROM and Active ROM For the Purpose of:: To decrease swelling/inflammation, To increase ROM, To improve muscle performance and motor function, To increase tolerance to activity/condition/position, To improve ability of physical actions for home/community/work/leisure and To improve gait and locomotor functions Text: Thank you for the opportunity to evaluate your patient. For Medicare and Medicare HMO plans, please review the plan of care and approve it. It will need to be FAXED BACK to us at [phone] for Medicare purposes. For Medicare only, by signing this I certify the plan of care. Please let me know if there are questions or concerns regarding this plan of care. Physician Signature: Date:
--- NOTE | 2023-05-17 11:49 | HP.PTDCSUM ---
Discharge Summary D/C summary: It has been my pleasure to treat MOLLY GREEN referred by AURORA Love, with the diagnosis of falls, stroke like symptoms for a total of 7 visit(s). Discharge Date: 05/17/23 Please see the following information for a summary of their discharge status. Subjective Subjective: Much better. Walking better in gait pattern and focussing on balance better. No falls lately. Works for 60 min and sits for 15 min to rest. Sometimes rest more frequently. Tired yesterday and had to rest. Tired overall. Uses let leg first on steps to start to help loosen it up. Balance feels better. HEP: 3 pages sink exercises, no problem. Overall Improvement % Improvement: 75 Objective Objective/Function: FGA is +5 and balance is good. LEFS improving. patient I with HEP. still fatigues easily but improving. Steps are reciprocal with one rail, weakness on L after a few steps but still able. Goals Goal 1:: FGA to diminish fallr isk Goal Progress: Goal Met Goal 2:: Pt feel balance back better than normal and strength back to normal 100% Goal Progress: 75% Goal 3:: LEFS score 50 Goal Progress: Progressing Goal 4:: Climb steps with one rail without pulling with UE Goal Progress: Goal Met, L still weak Plan Plan: d/c to HEP D/C Information Discharge Comments: Will continue via I HEP. d/c sentence: If there are questions or concerns regarding this patient's physical therapy, please feel free to call me at [phone]. Thank you for the referral of this patient. Sincerely, Ashkan Villatoro, DPT, OCS, CSCS Balance/Gait/Functional tests Balance/Special Test Scores Functional Gait Assessment Score: 27 % Disability: 10.0000 Lower Extremity Functional Score: 39 Improvement % Improvement: 75
== END 2023-05-17 19:00 | disposition home or self-care (01) ==
LOC: PT 11:00
PROVIDERS: PCP Internal Medicine; Referring Provider Clinical Nurse Specialist; Visit Provider Clinical Nurse Specialist
DX: R29.90 Unspecified symptoms and signs involving the nervous system (principal); R53.1 Weakness; R29.6 Repeated falls
CPT/HCPCS: 97110; 97162; 97164

== ENCOUNTER 2024-02-21 10:15 | Observation (INO) | payer MEDICARE, OTHER, SELFPAY ==
[2024-02-21] VITALS (14 sets, daily range): BP systolic 127–165; BP diastolic 67–118; PULSE 3–88; RESP 12–20; TEMP 36.4–36.7; O2SAT 93–99; BMI 31.2
--- NOTE | 2024-02-21 10:23 | EX.ED.DYSGE1 ---
HPI History of Present Illness Chief Complaint: Numb/Ting [facility] Medical History (Updated 08/02/23 @ 11:00 by Lalita Zepeda) Post-menopausal Wears glasses Arthritis Anemia Injury of head and neck Colitis Non-smoker History of stress test History of echocardiogram Cardiology follow-up encounter Hypertension History of irregular heartbeat TIA (transient ischemic attack) Fall Acute right-sided weakness Obesity Recurrent deep vein thrombosis (DVT) (10/2018) Essential (primary) hypertension Paresthesia Vertigo Uterine prolapse Hyperlipidemia Asthma Diabetes mellitus, type II Home Medications ?Medication ?Instructions ?Recorded ?Last Taken ?Type montelukast 10 mg tablet 10 mg PO DAILY seasonal allergies 08/24/13 02/20/24 History fluticasone propionate 50 2 spray NASAL DAILY allergies 03/31/18 02/20/24 History mcg/actuation nasal spray,suspension meloxicam 15 mg tablet 15 mg PO DAILY arthritis 03/31/18 02/20/24 History aspirin 81 mg tablet,delayed 81 mg PO DAILY 11/08/21 02/20/24 History release metformin 500 mg tablet 500 mg PO TID 11/08/21 02/21/24 History methenamine-sodium salicylate 162 1 tab PO PRN 11/28/22 02/20/24 History mg-162.5 mg tablet (AZO Urinary Tract Defense) Bifidobacterium infantis 1 tab PO QODAY 04/06/23 02/20/24 History loratadine 10 mg tablet (Claritin) 10 mg PO DAILY 04/06/23 02/20/24 History vitamins-lipotropics 1 tab .Route BID 04/06/23 02/20/24 History pravastatin 20 mg tablet 20 mg PO QHS cholesterol #90 tabs 05/10/23 02/20/24 Rx cholecalciferol (vitamin D3) 50 150 mcg PO BID 07/07/23 02/20/24 History mcg (2,000 unit) capsule rivaroxaban 10 mg tablet (Xarelto) 10 mg PO DAILY #90 tabs 07/12/23 02/20/24 Rx albuterol sulfate 90 mcg/actuation 2 puff inhalation Q6H PRN 07/20/23 Unknown History aerosol inhaler (Ventolin HFA) shortness of breath or wheezing budesonide 180 mcg/actuation 2 inh inhalation BID 08/02/23 02/20/24 History breath activated powder inhaler (Pulmicort Flexhaler) multivitamin (Daily Multi-Vitamin 1 tab PO DAILY 08/02/23 02/20/24 History tablet) lisinopril 20 mg tablet 20 mg PO DAILY blood pressure #90 01/03/24 02/20/24 Rx tabs carboxymethylcellulose sodium 1 % 1 drp EACH EYE BID 02/21/24 02/20/24 History eye drops (Artificial Tears (carboxymethylcellulose)) povidone 1.25 % eye drops (Soothe 1 drp ophthalmic (eye) BID 02/21/24 02/20/24 History Hydration) prednisolone acetate 1 % eye 1 drp ophthalmic (eye) BID 02/21/24 02/20/24 History drops,suspension Allergy/AdvReac Type Severity Reaction Status Date / Time ciprofloxacin (From Cipro) AdvReac Other Verified 02/21/24 10:16 ciprofloxacin HCl (From AdvReac Other Verified 02/21/24 10:16 Cipro) tetracycline (Tetracycline) AdvReac Other Verified 02/21/24 10:16 Family History (Updated 07/07/23 @ 15:00 by Kaylene Abreu) Father Heart disease Grandmother Cancer Stomach cancer Surgical History (Updated 08/02/23 @ 11:00 by Lalita Zepeda) History of corneal transplant History of bladder suspension procedure History of hysterectomy Social History Smoking Status: Never smoker EXAM Physical Exam Const Vital Signs: 02/21/24 10:17 02/21/24 10:38 02/21/24 10:51 Temperature 98.1 F Temperature Source Temporal Pulse Rate 88 79 Respiratory Rate 18 16 Blood Pressure 140/84 H 149/118 H Blood Pressure Mean 102 128 Pulse Ox 98 94 Oxygen Delivery Method Room Air Room Air Room Air 02/21/24 11:08 02/21/24 11:14 02/21/24 11:30 Temperature Temperature Source Pulse Rate 74 76 88 Respiratory Rate 20 H 16 18 Blood Pressure 156/73 H 156/73 H 165/76 H Blood Pressure Mean 100 100 105 Pulse Ox 97 98 98 Oxygen Delivery Method Room Air Room Air Room Air 02/21/24 12:00 02/21/24 12:00 02/21/24 12:00 Temperature Temperature Source Pulse Rate 73 70 3 L Respiratory Rate 18 18 12 Blood Pressure 151/74 H 151/74 H 151/74 H Blood Pressure Mean 99 99 99 Pulse Ox 98 98 96 Oxygen Delivery Method Room Air Room Air Room Air [facility] [place] Medical decision making narrative: HISTORY OF PRESENT ILLNESS: 73-year-old female presents with concern for left arm weakness. Patient states she developed a numb sensation in her left upper arm. It started approximate 7 AM on 02/21/2024. Per his son he noticed some slurred speech as well that began approximately 30 minutes prior to arrival at approximately 10 AM. Patient denies headache, falls, chest pain. Notes she had a TIA in the past but this feels different. REVIEW OF SYSTEMS: Pertinent positives: Left arm weakness, slurred speech Pertinent negatives: Headache, chest pain, palpitation PHYSICAL EXAM: Nursing triage notes reviewed, Vital signs reviewed Constitutional: please see mdm HENT: MMM Eyes: Pupils equal round and reactive to light, Extraocular muscles intact Neck: No stridor, no JVD, full neck ROM Lungs: Clear to auscultation, No wheezing or rales. No increased work of breathing, no conversational dyspnea, no accessory muscle use, no nasal flaring. No respiratory distress noted Heart: Regular rate and rhythm, No murmurs, No rubs and No gallops, 2+ distal pulses (radial, femoral, posterior tibial) in all extremities Abdomen: Soft, there is no tenderness, rigidity, rebound or guarding, no obvious peritoneal signs, no palpable pulsatile abdominal masses, no auscultated abdominal bruit : No CVAT Extremities: No edema Neuro: Alert, oriented x 3, intact sensation in all 4 extremities, no cranial nerve deficits noted subjective change in sensation left upper extremity as well as subjective slurred speech per son by did not notice slurred speech aphasia or other cranial nerve deficit. NIH of 2 given subjective sensory change and subjective slurred speech Skin: No rash or lesions noted MEDICAL DECISION MAKING: Chief Complaint: Left arm numbness, slurred speech External records reviewed: On Xarelto secondary to VTE. Imaging reviewed: Brain MRI from 2022 shows a normal unenhanced MRI of the brain, no evidence of ischemia Factors affecting care: n asthma, hypertension, hyperlipidemia Social determinants of health: Elderly History obtained from others: The patient's son Consults: n stroke neurology, stroke radiology [facility] Narrative: Patient was initially hemodynamically stable afebrile. Initial NIH of 2. She qualified for stroke team activation however she is on Xarelto and not be a TNK candidate. Her NIH is 2, she is not a candidate for thrombectomy I considered the following differential diagnosis: ICH, focal seizure, TIA, CVA, arrhythmia Patient was taken directly to ALL IMAGES (IF OBTAINED) HAVE BEEN PERSONALLY REVIEWED AND INTERPRETED BY MYSELF. EKG with normal sinus rhythm, normal axis, normal intervals, no STEMI, no A-fib CBC with no leukocytosis, no anemia or thrombocytopenia No evidence of coagulopathy BMP without evidence of significant electrolyte abnormalities, no anion gap, no acute kidney injury. High-sensitivity troponin is negative, no evidence of myocardial ischemia CT scan of the head, CT of the head and neck show no evidence of ICH, mass or large vessel occlusion The synthesis of the patient's history, physical exam, labs images were concerning for CVA versus TIA. NIH of 2. She is not a candidate for thrombectomy or TNK at this time. Is admitted to PCU under Dr. Ruggiero for ongoing care, stroke care, respect modification and likely MRI The patient and/or family, caregivers express understanding. The patient and/or family, caregivers agrees with the plan. Shared decision making: I will have a discussion with the patient and or visitors regarding risk/benefits of further testing or admission. They will be made aware of of the risk/benefits inherent in this decision they will be given the opportunity to voice understanding. Total critical care time today provided was at least 0 minutes. This excludes separately billable procedures. Critical care time (if documented) is secondary to the patient having high probability of clinically significant/life threatening deterioration in the patient's condition which required my urgent intervention. Impression: 1. Paresthesias 2. Slurred speech 3. History of hypertension Dispo: PCU ops This note was generated with [employer] dictation software. It may contain incorrect words, spelling, and punctuation that were not noted in review of the chart prior to signing. Lab Data Labs: Laboratory Results - last 24 hr 02/21/24 02/21/24 10:34 10:38 WBC 8.4 RBC 4.84 Hgb 12.9 Hct 42.3 MCV 87.4 MCH 26.7 L MCHC 30.5 L RDW Std Deviation 50.2 H RDW Coeff of Kathya 15.9 H Plt Count 333 MPV 9.7 Immature Gran % (Auto) 0.500 Neut % (Auto) 69.3 Lymph % (Auto) 17.7 L [place] % (Auto) 8.5 Eos % (Auto) 2.8 Baso % (Auto) 1.2 H Absolute Neuts (auto) 5.8 Absolute Lymphs (auto) 1.48 Nucleated RBC % 0 PT 13.0 INR 1.0 APTT 24.8 Sodium 141 Potassium 4.0 Chloride 106 Carbon Dioxide 29.0 Anion Gap 6 BUN 18 Creatinine 0.76 Estim Creat Clear Calc 67.98 Est GFR (MDRD) Af Amer 96 Est GFR (MDRD) Non-Af 79 BUN/Creatinine Ratio 23.8 H Glucose 138 H Calcium 9.2 Troponin I High Sens 5 POC Glucose 147 H Radiography Diagnostic Testing: Clinical Impression(s) from Imaging Studies Brain CT 02/21/24 10:38 IMPRESSION: No acute intracranial process. Mild chronic involutional changes of the brain. N.B. : The above Results were Read Back by Douglas Roca MD to Alexis Malcolm DO, and understanding confirmed on 02/21/2024 10:58:09 (ET). Electronically Signed: Douglas Roca MD at 11:00 EDT , ADDENDUM: 02/21/24 1107 IMPRESSION: No acute intracranial process. Mild chronic involutional changes of the brain. N.B. : The above Results were Read Back by Douglas Roca MD to Alexis Malcolm DO, and understanding confirmed on 02/21/2024 10:58:09 (ET). Electronically Signed: Douglas Roca MD at 11:00 EDT , Head/Neck CTA 02/21/24 10:38 IMPRESSION: 1. Atherosclerotic calcifications in the cavernous internal carotid arteries and bulb regions bilaterally without significant stenosis. 2. Otherwise unremarkable CCAs and ICAs. 3. No intracranial great vessel stenosis. Electronically Signed: Douglas Roca MD at 11:16 EDT , ADDENDUM: 02/21/24 1125 IMPRESSION: 1. Atherosclerotic calcifications in the cavernous internal carotid arteries and bulb regions bilaterally without significant stenosis. 2. Otherwise unremarkable CCAs and ICAs. 3. No intracranial great vessel stenosis. N.B. : The above Results were Read Back by Douglas Roca MD to Gold Espinoza DO, and understanding confirmed on 02/21/2024 11:18:09 (ET). Electronically Signed: Douglas Roca MD at 11:16 EDT , Chest X-Ray 02/21/24 11:24 IMPRESSION: No radiographic evidence of acute cardiopulmonary disease. Electronically Signed: Douglas Roca MD at 11:41 EDT , Discharge Plan Triage Chief Complaint: Numb/Ting ED Provider: Gold Espinoza Dx/Rx/DC Orders Prescriptions: No Action aspirin 81 mg tablet,delayed release (DR/EC) 81 mg PO DAILY AZO Urinary Tract Defense 162-162.5 mg tablet 1 tab PO PRN Patient Comments: TAKES OCCASSIONALLY cholecalciferol (vitamin D3) 50 mcg (2,000 unit) capsule 150 mcg PO BID montelukast 10 MG tablet 10 mg PO DAILY metformin 500 mg tablet 500 mg PO TID meloxicam 15 MG tablet 15 mg PO DAILY fluticasone propionate 1 SPRAY spray,suspension 2 spray NASAL DAILY Pulmicort Flexhaler 180 mcg/actuation aerosol powdr breath activated 2 inh INHALATION BID multivitamin [Daily Multi-Vitamin] Tablet 1 tab PO DAILY loratadine [Claritin] 10 mg tablet 10 mg PO DAILY vitamins-lipotropics [Lipo-Flavonoid Plus] 1 tab .Route BID Bifidobacterium infantis [Align] 1 tab PO QODAY prednisolone acetate 1 % drops,suspension 1 drp ophthalmic (eye) BID Artificial Tears (cmc) 1 % drops 1 drp EACH EYE BID Soothe Hydration 1.25 % drops 1 drp ophthalmic (eye) BID pravastatin 20 mg tablet 20 mg PO QHS Qty: 90 3RF Xarelto 10 mg tablet 10 mg PO DAILY Qty: 90 3RF albuterol sulfate [Ventolin HFA] 90 mcg/actuation HFA aerosol inhaler 2 puff inhalation Q6H PRN (Reason: shortness of breath or wheezing) lisinopril 20 mg tablet 20 mg PO DAILY Qty: 90 3RF Primary Care Provider: Allisno Hines Referrals: Allison Hines MD [Primary Care Provider] - Print Language: Faroese
--- NOTE | 2024-02-21 10:38 | CT_ITS ---
We are attempting to reach an attending provider to discuss findings. An addendum with communication details will be sent when the communication is complete. INDICATION: Neuro deficit, acute, stroke suspected EXAMINATION: CTA HEAD, AND CTA NECK TECHNIQUE: Noncontrast axial images were obtained of the brain. Subsequently, routine carotid CT angiogram protocol was performed without and with IV contrast. In addition, images were obtained of the [facility] [place]. NASCET criteria using the distal ICAs for comparison were used for evaluation of stenoses. 3D reconstructions were reviewed. The protocol utilizes one or more of the following dose reduction techniques: automated exposure control, adjustment of mA and/or kV according to patient size,and/or use of iterative reconstruction technique. IV Contrast dosage and agent: 100 cc of Isovue-300 COMPARISON: Prior study dated: 04/07/2023 FINDINGS: --CTA NECK: AORTIC ARCH AND BRANCHES: Normal anatomy, patent. RIGHT CCA: No occlusion, significant stenosis or dissection. Tortuous proximal CCA. RIGHT ICA: Mild atherosclerotic calcifications of the bulb region with mild stenosis unchanged. LEFT CCA: No occlusion, significant stenosis or dissection. LEFT ICA: Mild atherosclerotic calcifications in the bulb region with mild stenosis unchanged. RIGHT VERTEBRAL ARTERY: No occlusion, significant stenosis or dissection. LEFT VERTEBRAL ARTERY: No occlusion, significant stenosis or dissection. NECK SOFT TISSUES: Unremarkable. --CTA HEAD: --Anterior circulation: ICAs: Atherosclerotic calcifications of the cavernous and supraclinoid ICAs bilaterally with mild stenosis. ACAs: No significant stenosis at the visualized segments. ACOM: Present. MCAs: No significant stenosis at the visualized segments. --Posterior circulation: PCOMs: Patent. senior analyst developer: No significant stenosis at the visualized segments. BASILAR ARTERY: Minimal calcifications without significant stenosis. VERTEBRAL ARTERIES: No significant stenosis at the intradural/visualized segments. No evidence of intracranial aneurysm or vascular malformation. CT/STROKE CTA Head AND Neck W/Con IMPRESSION: 1. Atherosclerotic calcifications in the cavernous internal carotid arteries and bulb regions bilaterally without significant stenosis. 2. Otherwise unremarkable CCAs and ICAs. 3. No intracranial great vessel stenosis. Electronically Signed: Douglas Roca MD at 11:16 EDT ,
--- NOTE | 2024-02-21 10:38 | CT_ITS ---
INDICATION: Neuro deficit, acute, stroke suspected EXAMINATION: CT BRAIN - CT Head Stroke Protocol W/O Contrast Injection TECHNIQUE: Multiple axial images were obtained of the head without intravenous contrast. The protocol utilizes one or more of the following dose reduction techniques: automated exposure control, adjustment of mA and/or kV according to patient size,and/or use of iterative reconstruction technique. IV Contrast dosage and agent: None. RADIATION DOSAGE (If Supplied By Facility): CTDIvol = ( 44.99 ) mGy, DLP = ( 796.11 ) mGycm COMPARISON: Prior study dated: 04/07/2023 FINDINGS: BRAIN PARENCHYMA: No intra- or extra-axial hemorrhage. No evidence of acute infarct. No intracranial mass or mass effect. There is preservation of the lawrence/white matter interface. Mild chronic periventricular deep white matter changes likely due to microvascular disease. Posterior fossa structures are unremarkable. Atherosclerotic calcifications of the cavernous internal carotid arteries. CSF SPACES: Appropriate for age. No hydrocephalus. Basal cisterns are patent. CALVARIUM, SKULL BASE, PARANASAL SINUSES AND MASTOID AIR CELLS: Clear. No discrete lytic or blastic abnormalities. ORBITS: Both globes, extraocular muscles, optic nerves and retrobulbar fat appear unremarkable. CT/STROKE Brain/Head without Cont IMPRESSION: No acute intracranial process. Mild chronic involutional changes of the brain. N.B. : The above Results were Read Back by Douglas Roca MD to Alexis Malcolm DO, and understanding confirmed on 02/21/2024 10:58:09 (ET). Electronically Signed: Douglas Roca MD at 11:00 EDT ,
--- NOTE | 2024-02-21 10:39 | NURSING ---
STROKE ALERT CALLED [phone]
[2024-02-21 10:51] LABS: Bedside Glucose 147 mg/dL (74-106)
[2024-02-21 10:54] LABS: Absolute Lymphocyte Count 1.48 X10^3/uL (0.83-4.51); Absolute Neutrophil Count 5.8 X10^3/uL (2.0-7.7); Basophil% 1.2 % (0-1); Eosinophil# 0.23 X10^3/uL; Eosinophils% 2.8 % (0-5); Hematocrit 42.3 % (37-47); Hemoglobin 12.9 g/dL (12.0-15.0); Lymphocyte # 1.48 X10^3/ul (0.83-4.51); Lymphocyte % 17.7 % (19-41); Mean Corp Hgb Conc 30.5 g/dL (32-36); Mean Corpuscular Hgb 26.7 pg (27.0-32.0); Mean Corpuscular Volume 87.4 fL (81-99); Mean Platelet Vol. 9.7 fl (6.2-12.0); Monocyte# 0.71 X10^3/uL; Monocyte% 8.5 % (0-10); NRBC Flagged by Analyzer 0 % (0-5); Neutrophil % 69.3 % (47-70); Platelet Count 333 K/mm3 (150-450); RBC Distribution Width CV 15.9 % (11.6-14.6); RBC Distribution Width SD 50.2 fl (35.1-43.9); Red Blood Count 4.84 M/mm3 (4.2-5.4); White Blood Count 8.4 K/mm3 (4.4-11.0)
--- NOTE | 2024-02-21 10:55 | ED.RN ---
[facility] contacted at 1050, delay d/t trauma arrival same time as this patient.
--- NOTE | 2024-02-21 10:59 | ED.RN ---
to be contacted and will call back via telestroke
[2024-02-21 11:05] LABS: Partial Thromboplast Time 24.8 Seconds (24.1-36.2)
[2024-02-21 11:16] LABS: Anion Gap 6 (5-15); BUN 18 mg/dL (7-18); BUN/Creat Ratio 23.8 RATIO (10-20); Calcium,Total 9.2 mg/dL (8.5-10.1); Chloride 106 mmol/L (98-107); Creatinine, Serum 0.76 mg/dL (0.55-1.02); EST Glomerular Filtration Rate 79 mL/min (>60); Est Glom Filt Rate - Afr Amer 96 mL/min (>60); Estimated Creatinine Clearance 67.98 ml/min; Glucose 138 mg/dL (74-106); Sodium Level 141 mmol/L (136-145); Troponin-I HS 5 pg/mL (3.0-54.0)
--- NOTE | 2024-02-21 11:17 | ED.RN ---
Addendum entered by Deena Hebert 02/21/24 11:21: Dr Espinoza made aware Original Note: Dr. Sosa does not think we need to do any emergent treatment per tele stroke.
--- NOTE | 2024-02-21 11:24 | RAD_ITS ---
INDICATION: Neuro deficit, acute, stroke suspected EXAMINATION/TECHNIQUE: X-RAY - XR Chest 1 View COMPARISON: Prior study dated: 09/18/2022 FINDINGS: LINES/DEVICES: None. LUNGS: No consolidation, edema or effusion. No pneumothorax. MEDIASTINUM AND CARDIOVASCULAR STRUCTURES: Cardiac silhouette not enlarged. Central airways and mediastinal contour are unremarkable. BONES AND SOFT TISSUES: Unremarkable. RAD/Chest 1 View IMPRESSION: No radiographic evidence of acute cardiopulmonary disease. Electronically Signed: Douglas Roca MD at 11:41 EDT ,
--- NOTE | 2024-02-21 12:11 | ED.RN ---
Patient states that the numbness in her arm is worse and now on her face. Dr. Espinoza made aware
--- NOTE | 2024-02-21 12:17 | ED.RN ---
Per Dr. Espinoza change NIH checks to Q1H
--- NOTE | 2024-02-21 12:38 | HP.PCM.HOS_ITS ---
[facility] - General General Date of Admission: 02/21/24 Date of Service: 02/21/24 Chief Complaint: Left arm numbness HPI Narrative MOLLY GREEN, is a 73 F with past medical history significant for previous TIAs, essential hypertension, diabetes mellitus type 2 who presented with left arm numbness. Patient symptoms started on the morning of her admission. Patient also stated that her son told her speech was slurred. She denied any focal deficit otherwise. She did call her primary care physician's office and was instructed to present to the ED. Initial workup in the ED came back unremarkable she was however admitted for possible CVA workup [facility] Medical History (Updated 02/21/24 @ 13:[address] Braulio Ruggiero MD) Post-menopausal Wears glasses Arthritis Anemia Injury of head and neck Colitis Non-smoker History of stress test History of echocardiogram Cardiology follow-up encounter Hypertension History of irregular heartbeat TIA (transient ischemic attack) Fall Acute right-sided weakness Obesity Recurrent deep vein thrombosis (DVT) (10/2018) Essential (primary) hypertension Paresthesia Vertigo Uterine prolapse Hyperlipidemia Asthma Diabetes mellitus, type II Home Medications ?Medication ?Instructions ?Recorded ?Last Taken ?Type montelukast 10 mg tablet 10 mg PO DAILY seasonal allergies 08/24/13 02/20/24 History fluticasone propionate 50 2 spray NASAL DAILY allergies 03/31/18 02/20/24 History mcg/actuation nasal spray,suspension meloxicam 15 mg tablet 15 mg PO DAILY arthritis 03/31/18 02/20/24 History aspirin 81 mg tablet,delayed 81 mg PO DAILY 11/08/21 02/20/24 History release metformin 500 mg tablet 500 mg PO TID 11/08/21 02/21/24 History methenamine-sodium salicylate 162 1 tab PO PRN 11/28/22 02/20/24 History mg-162.5 mg tablet (AZO Urinary Tract Defense) Bifidobacterium infantis 1 tab PO QODAY 04/06/23 02/20/24 History loratadine 10 mg tablet (Claritin) 10 mg PO DAILY 04/06/23 02/20/24 History vitamins-lipotropics 1 tab .Route BID 04/06/23 02/20/24 History pravastatin 20 mg tablet 20 mg PO QHS cholesterol #90 tabs 05/10/23 02/20/24 Rx cholecalciferol (vitamin D3) 50 150 mcg PO BID 10/20/23 06/04/24 History mcg (2,000 unit) capsule rivaroxaban 10 mg tablet (Xarelto) 10 mg PO DAILY #90 tabs 07/12/23 02/20/24 Rx albuterol sulfate 90 mcg/actuation 2 puff inhalation Q6H PRN 07/20/23 Unknown History aerosol inhaler (Ventolin HFA) shortness of breath or wheezing budesonide 180 mcg/actuation 2 inh inhalation BID 08/02/23 02/20/24 History breath activated powder inhaler (Pulmicort Flexhaler) multivitamin (Daily Multi-Vitamin 1 tab PO DAILY 08/02/23 02/20/24 History tablet) lisinopril 20 mg tablet 20 mg PO DAILY blood pressure #90 01/03/24 02/20/24 Rx tabs carboxymethylcellulose sodium 1 % 1 drp EACH EYE BID 02/21/24 02/20/24 History eye drops (Artificial Tears (carboxymethylcellulose)) povidone 1.25 % eye drops (Soothe 1 drp ophthalmic (eye) BID 02/21/24 02/20/24 History Hydration) prednisolone acetate 1 % eye 1 drp ophthalmic (eye) BID 02/21/24 02/20/24 History drops,suspension Allergy/AdvReac Type Severity Reaction Status Date / Time ciprofloxacin (From Cipro) AdvReac Other Verified 02/21/24 10:16 ciprofloxacin HCl (From AdvReac Other Verified 02/21/24 10:16 Cipro) tetracycline (Tetracycline) AdvReac Other Verified 02/21/24 10:16 Family History (Updated 07/07/23 @ 15:00 by Kaylene Abreu) Father Heart disease Grandmother Cancer Stomach cancer Surgical History History of corneal transplant History of bladder suspension procedure History of hysterectomy Social History Smoking Status: Never smoker ROS ROS Narrative GENERAL: denies fever, chills, night sweats, weight loss, anorexia HEENT: denies headache, sinus congestion, or drainage, dysphagia RESPIRATORY: denies cough, sputum production, shortness of breath, dyspnea on exertion CARDIAC: denies chest pain, palpitations, orthopnea, PND GASTROINTESTINAL: denies abdominal pain, nausea, vomiting, melena, GENITOURINARY: denies dysuria, urgency, frequency, heamaturia EXTREMITY: denies swelling MUSCULOSKELETAL: denies current joint pain or tenderness NEUROLOGIC: Left arm numbness HEMATOLOGIC: denies easy bruising and/or hemorrhage INTEGUMENT: denies rashes PSYCHIATRIC: denies suicidal or homicidal ideation Vital Signs Vital Signs Vital Signs: 02/21/24 10:17 02/21/24 10:38 02/21/24 10:51 Temperature 98.1 F Temperature Source Temporal Pulse Rate 88 79 Respiratory Rate 18 16 Blood Pressure 140/84 H 149/118 H Blood Pressure Mean 102 128 Pulse Ox 98 94 Oxygen Delivery Method Room Air Room Air Room Air 02/21/24 11:08 02/21/24 11:14 02/21/24 11:30 Temperature Temperature Source Pulse Rate 74 76 88 Respiratory Rate 20 H 16 18 Blood Pressure 156/73 H 156/73 H 165/76 H Blood Pressure Mean 100 100 105 Pulse Ox 97 98 98 Oxygen Delivery Method Room Air Room Air Room Air 02/21/24 12:00 02/21/24 12:00 02/21/24 12:00 Temperature Temperature Source Pulse Rate 73 70 3 L Respiratory Rate 18 18 12 Blood Pressure 151/74 H 151/74 H 151/74 H Blood Pressure Mean 99 99 99 Pulse Ox 98 98 96 Oxygen Delivery Method Room Air Room Air Room Air Weight Weight: 88.224 kg Body Mass Index (BMI) 31.2 Physical Exam Narrative GENERAL: cooperative HEENT: Atraumatic; normocephalic EYES; Anicteric, Normal Conjunctiva NECK; supple, normal thyroid, RESPIRATORY: Diminished to auscultation CARDIOVASCULAR: Regular S1 S2, GI: soft, normoactive bowel sounds, : No Renal angle tenderness; EXTREMITIES: No edema, no clubbing, MUSCULOSKELETAL: no muscle wasting NEURO: Awake; no lateralizing signs. SKIN: No Rash PSYCH; Flat affect Results Lab / Micro Data 02/21/24 10:38 02/21/24 10:38 Labs: Laboratory Results - last 24 hr 02/21/24 10:34: POC Glucose 147 H 02/21/24 10:38: WBC 8.4, RBC 4.84, Hgb 12.9, Hct 42.3, MCV 87.4, MCH 26.7 L, M CHC 30.5 L, RDW Std Deviation 50.2 H, RDW Coeff of Kathya 15.9 H, Plt Count 333, MPV 9.7, Immature Gran % (Auto) 0.500, Neut % (Auto) 69.3, Lymph % (Auto) 17.7 L , [place] % (Auto) 8.5, Eos % (Auto) 2.8, Baso % (Auto) 1.2 H, Absolute Neuts (auto) 5.8, Absolute Lymphs (auto) 1.48, Nucleated RBC % 0, PT 13.0, INR 1.0, APTT 24.8, Sodium 141, Potassium 4.0, Chloride 106, Carbon Dioxide 29.0, Anion Gap 6, BUN 18, Creatinine 0.76, Estim Creat Clear Calc 67.98, Est GFR (MDRD) Af Amer 96, Est GFR (MDRD) Non-Af 79, BUN/Creatinine Ratio 23.8 H, Glucose 138 H, Calcium 9.2, Troponin I High Sens 5 Imaging Radiology Impression Brain CT 02/21/24 10:38 IMPRESSION: No acute intracranial process. Mild chronic involutional changes of the brain. N.B. : The above Results were Read Back by Douglas Roca MD to Alexis Malcolm DO, and understanding confirmed on 02/21/2024 10:58:09 (ET). Electronically Signed: Douglas Roca MD at 11:00 EDT , ADDENDUM: 02/21/24 1107 IMPRESSION: No acute intracranial process. Mild chronic involutional changes of the brain. N.B. : The above Results were Read Back by Douglas Roca MD to Alexis Malcolm DO, and understanding confirmed on 02/21/2024 10:58:09 (ET). Electronically Signed: Douglas Roca MD at 11:00 EDT , Head/Neck CTA 02/21/24 10:38 IMPRESSION: 1. Atherosclerotic calcifications in the cavernous internal carotid arteries and bulb regions bilaterally without significant stenosis. 2. Otherwise unremarkable CCAs and ICAs. 3. No intracranial great vessel stenosis. Electronically Signed: Douglas Roca MD at 11:16 EDT , ADDENDUM: 02/21/24 1125 IMPRESSION: 1. Atherosclerotic calcifications in the cavernous internal carotid arteries and bulb regions bilaterally without significant stenosis. 2. Otherwise unremarkable CCAs and ICAs. 3. No intracranial great vessel stenosis. N.B. : The above Results were Read Back by Douglas Roca MD to Gold Espinoza DO, and understanding confirmed on 02/21/2024 11:18:09 (ET). Electronically Signed: Douglas Roca MD at 11:16 EDT , Chest X-Ray 02/21/24 11:24 IMPRESSION: No radiographic evidence of acute cardiopulmonary disease. Electronically Signed: Douglas Roca MD at 11:41 EDT , Assessment & Plan Assessment/Plan (1) Left arm numbness: PLAN: Plan Patient is a 73-year-old lady who presented with left arm numbness 1. Left arm numbness ? Patient has significant risk for CVA including hypertension diabetes. Admitted to monitored bed placed on every 4 neurochecks initial diagnostic workup came back unremarkable. Subsequently ordered 2D echo and MRI of the brain with consultation placed to teleneuro patient is on antiplatelet therapy with aspirin continue 2. Hypertension - Blood pressure controlled, home medications continued with dose adjustment as needed 3. Diabetes mellitus type II -patient's oral hypoglycemics held. Placed on long acting insulin, Accu-Cheks a.c. and at bedtime and covered with sliding scale insulin 4. Dyslipidemia -Patient is on statin therapy, continued at home dose 5. Generalized osteoarthritis ? Pain meds as needed 6. History of recurrent DVT/PE ? Patient is on rivaroxaban to continue 7. Class I obesity with BMI of 30 ? Complicating care weight loss advised 8. DVT prophylaxis ? SC Lovenox Time spent in the patient's overall evaluation,decision-making process, review of diagnostic data, adjustment of management, discussion with other providers, nursing nursing and ancillary staff involved in patient's care documentation, 76 Minutes Advance planning; did discuss with the patient and family regarding advanced directives as well as CODE STATUS. Did explain the various scenarios involved ( FULL CODE, DNR CCA, DNR CCA with no intubation, and DNR CC and what each meant) patient elected to remain full code with CPR and intubation if needed. Order was placed. Time spent on discussion 18 minutes. Charges/Coding Visit Charges Inpatient E&M: 83225 Init Hosp L3 Procedures Hospitalists Procedures: 53198 Advncd Care Plan 30 Min
--- NOTE | 2024-02-21 13:02 | MRI_ITS ---
EXAM: MR HEAD WITHOUT INTRAVENOUS CONTRAST CLINICAL INDICATION: cva TECHNIQUE: Multiplanar and multisequence MR images of the brain were obtained without intravenous contrast. COMPARISON: CT brain 02/21/2024, MR Head dated 04/07/2023 FINDINGS: BRAIN AND EXTRA-AXIAL SPACES: Small focus of increased T2 signal intensity within the right frontal lobe and increased T2 signal intensity along the periventricular white matter and corpus callosum again noted. No intra- or extra-axial hemorrhage. No evidence of acute infarct. No intracranial mass or mass effect. Normal preservation of the lawrence/white matter interface. Posterior fossa structures are unremarkable. Ventricles are appropriate for age. No hydrocephalus. Basal cisterns are patent. SELLA: Normal. Normal sella turcica, pituitary gland, infundibular stalk, optic chiasm and hypothalamus. AUDITORY SYSTEM: Normal. The internal auditory canals are patent. BONES/JOINTS: Intact calvarium. SINUSES: Unremarkable as visualized. Clear. MASTOID AIR CELLS: Unremarkable as visualized. Clear. ORBITS: Unremarkable as visualized. Both globes, extraocular muscles, optic nerves and retrobulbar fat appear unremarkable. VASCULATURE: Unremarkable as visualized. Normal flow voids in the major intracranial circulation. MRI/Brain without Contrast IMPRESSION: No acute intracranial abnormality. No interval change. Electronically Signed: Rubén Urbina MD at 16:10 EDT ,
--- NOTE | 2024-02-21 13:06 | NURSING ---
PCU KITTOE PARATHESIAS, SLURRED SPEECH
--- NOTE | 2024-02-21 13:35 | ECHOD_ITS ---
Reason For Study: TIA/CVA Procedure This was a 2D Doppler, Color Flow transthoracic echocardiogram. Exam performed portable in patient room. Left Ventricle Normal LV size. Left ventricular systolic function is normal. The left ventricular ejection fraction is 65 %. Stage 1 diastolic dysfunction. No regional wall motion abnormalities noted. Right Ventricle Normal RV size. Normal systolic function. Atria Normal left atrium. Normal right atrium. Tricuspid Valve Normal tricuspid valve. Pulmonic Valve Normal pulmonic valve. Great Vessels Normal aortic root. The pulmonary artery is normal size. A small IVC thrombus cannot be completely excluded. Pericardium/Pleural No pericardial effusion. MMode/2D Measurements & Calculations LVIDd: 4.6 cm IVSd: 1.3 cm Ao root diam: 3.4 cm LVIDs: 3.3 cm LVPWd: 0.95 cm RVDd: 3.0 cm FS: 28.2 % LAV(MOD-bp): 69.6 ml SV(MOD-sp4): 40.5 ml LVAd ap4: 23.6 cm2 LAV(MOD-bp) Indexed: 35.2 ml/m2 LVLd ap4: 8.1 cm LAV(MOD-sp2): 69.0 ml EDV(MOD-sp4): 58.9 ml LAV(MOD-sp4): 66.0 ml EDV(sp4-el): 58.0 ml LVAs ap4: 11.6 cm2 LVLs ap4: 6.5 cm ESV(MOD-sp4): 18.4 ml ESV(sp4-el): 17.6 ml EF(MOD-sp4): 68.7 % EF(sp4-el): 69.7 % SV(sp4-el): 40.5 ml LA dimension(2D): 4.3 cm LA A4 area: 22.5 cm2 TAPSE: 1.9 cm Time Measurements MV dec time: 0.24 sec Doppler Measurements & Calculations MV E max cali: 59.9 cm/sec Lat Peak E' Cali: 10.6 cm/sec Med Peak E' Cali: 6.0 cm/sec MV A max cali: 88.8 cm/sec E/E' lat: 5.7 E/E' med: 10.0 MV E/A: 0.68 MV V2 max: 88.8 cm/sec MV P1/2t max cali: 70.5 cm/sec Ao V2 max: 115.4 cm/sec MV max P.2 mmHg MV P1/2t: 67.3 msec Ao max P.3 mmHg MV V2 mean: 49.1 cm/sec MV dec slope: 306.9 cm/sec2 Ao V2 mean: 82.8 cm/sec MV mean P.1 mmHg Ao mean P.1 mmHg MV V2 VTI: 26.8 cm MVA(P1/2t): 3.3 cm2 Ao V2 VTI: 28.2 cm AV (velocity ratio): 0.98 LV V1 max: 110.2 cm/sec PA V2 max: 84.5 cm/sec LV V1 max P.9 mmHg PA V2 mean: 61.9 cm/sec LV V1 mean P.6 mmHg LV V1 mean: 75.9 cm/sec LV V1 VTI: 27.7 cm ECHO/Echo Complete Interpretation Summary Normal LV size. Left ventricular systolic function is normal. The left ventricular ejection fraction is 65 %. Stage 1 diastolic dysfunction. Ordering Physician: Braulio Ruggiero Referring Physician: Allison Hines Performed By: Laila Mckee, TARA, RVT
[2024-02-21] MEDS: 0.9% Normal Saline (1000mL) 1,000 ML 100 ML IV (15:23)
[2024-02-21] MEDS: Atorvastatin Calcium 40 MG Tablet PO (20:16)
[2024-02-22] MEDS: 0.9% Normal Saline (1000mL) 1,000 ML 100 ML IV (01:23)
[2024-02-22 03:03] VITALS: BP 146/68; PULSE 71; RESP 17; TEMP 36.1; O2SAT 96
[2024-02-22 03:17] VITALS: BMI 30.2
[2024-02-22 04:06] VITALS: BMI 30.2
[2024-02-22 06:26] LABS: Absolute Lymphocyte Count 1.68 X10^3/uL (0.83-4.51); Absolute Neutrophil Count 4.3 X10^3/uL (2.0-7.7); Basophil% 1.4 % (0-1); Eosinophil# 0.31 X10^3/uL; Eosinophils% 4.3 % (0-5); Hematocrit 37.8 % (37-47); Hemoglobin 11.6 g/dL (12.0-15.0); Lymphocyte # 1.68 X10^3/ul (0.83-4.51); Lymphocyte % 23.4 % (19-41); Mean Corp Hgb Conc 30.7 g/dL (32-36); Mean Corpuscular Hgb 26.5 pg (27.0-32.0); Mean Corpuscular Volume 86.5 fL (81-99); Mean Platelet Vol. 10.1 fl (6.2-12.0); Monocyte# 0.72 X10^3/uL; NRBC Flagged by Analyzer 0 % (0-5); Neutrophil # 4.34 X10^3/uL (2.7-7.7); Neutrophil % 60.5 % (47-70); Platelet Count 310 K/mm3 (150-450); Red Blood Count 4.37 M/mm3 (4.2-5.4); White Blood Count 7.2 K/mm3 (4.4-11.0)
[2024-02-22 06:52] LABS: Anion Gap 5 (5-15); BUN 14 mg/dL (7-18); BUN/Creat Ratio 23.5 RATIO (10-20); Calcium,Total 8.8 mg/dL (8.5-10.1); Chloride 109 mmol/L (98-107); Cholesterol 142 mg/dL (200); EST Glomerular Filtration Rate 104 mL/min (>60); Est Glom Filt Rate - Afr Amer 126 mL/min (>60); Estimated Creatinine Clearance 68.99 ml/min; Glucose 136 mg/dL (74-106); High Density Lipoprotein 60 mg/dL; Magnesium 1.9 mg/dL (1.6-2.6); Phosphorus 3.1 mg/dL (2.5-4.9); Potassium 4.2 mmol/L (3.5-5.1); Sodium Level 141 mmol/L (136-145); Triglycerides 52 mg/dL; Very Low Density Lipoprotein 10 mg/dL (5-40)
[2024-02-22 07:15] VITALS: O2SAT 95
[2024-02-22 09:00] VITALS: BP 131/65; PULSE 64; RESP 22; TEMP 36.6; O2SAT 95
--- NOTE | 2024-02-22 09:00 | PCM.PN.HOSP ---
Reason for Visit Reason for Visit: Diagnoses Anesthesia of skin (02/21/24) Subjective Subjective Patient seen complains of numbness this time in the left upper extremity MRI however came back negative. Plan is for patient to be assessed for possible discharge after being evaluated by teleneuro Objective Data Objective Data Vital Signs: Vital Signs Temp Pulse Resp BP Pulse Ox O2 Del Method 97 F L 71 17 146/68 H 96 Room Air 02/22/24 03:03 02/22/24 03:03 02/22/24 03:03 02/22/24 03:03 02/22/24 03:03 02/22/24 03:03 Oxygen Delivery Method Room Air Weight: 87.4 kg Body Mass Index (BMI) 30.2 Intake & Output: Intake and Output for Last 24 Hours 02/20/24 02/21/24 02/22/24 23:59 23:59 23:59 Intake Total 480 / 480 1000 / 1000 Balance 480 / 480 1000 / 1000 Lab / Micro Data 02/22/24 05:08 02/22/24 05:08 Labs: Laboratory Results - last 24 hr 02/21/24 10:34: POC Glucose 147 H 02/21/24 10:38: WBC 8.4, RBC 4.84, Hgb 12.9, Hct 42.3, MCV 87.4, MCH 26.7 L, MCHC 30.5 L, RDW Std Deviation 50.2 H, RDW Coeff of Kathya 15.9 H, Plt Count 333, MPV 9.7, Immature Gran % (Auto) 0.500, Neut % (Auto) 69.3, Lymph % (Auto) 17.7 L, [place] % (Auto) 8.5, Eos % (Auto) 2.8, Baso % (Auto) 1.2 H, Absolute Neuts (auto) 5.8, Absolute Lymphs (auto) 1.48, Nucleated RBC % 0, PT 13.0, INR 1.0, APTT 24.8, Sodium 141, Potassium 4.0, Chloride 106, Carbon Dioxide 29.0, Anion Gap 6, BUN 18, Creatinine 0.76, Estim Creat Clear Calc 67.98, Est GFR (MDRD) Af Amer 96, Est GFR (MDRD) Non-Af 79, BUN/Creatinine Ratio 23.8 H, Glucose 138 H, Calcium 9.2, Troponin I High Sens 5 02/22/24 05:08: WBC 7.2, RBC 4.37, Hgb 11.6 L, Hct 37.8, MCV 86.5, MCH 26.5 L, MCHC 30.7 L, RDW Std Deviation 51.0 H, RDW Coeff of Kathya 16.0 H, Plt Count 310, MPV 10.1, Immature Gran % (Auto) 0.400, Neut % (Auto) 60.5, Lymph % (Auto) 23.4, [place] % (Auto) 10.0, Eos % (Auto) 4.3, Baso % (Auto) 1.4 H, Absolute Neuts (auto) 4.3, Absolute Lymphs (auto) 1.68, Nucleated RBC % 0, Sodium 141, Potassium 4.2, Chloride 109 H, Carbon Dioxide 27.0, Anion Gap 5, BUN 14, Creatinine 0.60, Estim Creat Clear Calc 68.99, Est GFR (MDRD) Af Amer 126, Est GFR (MDRD) Non-Af 104, BUN/Creatinine Ratio 23.5 H, Glucose 136 H, Calcium 8.8, Phosphorus 3.1, Magnesium 1.9, Triglycerides 52, Cholesterol 142, LDL Cholesterol 72, VLDL Cholesterol 10, HDL Cholesterol 60 Radiography Diagnostic Testing: Radiology Impression Brain CT 02/21/24 10:38 IMPRESSION: No acute intracranial process. Mild chronic involutional changes of the brain. N.B. : The above Results were Read Back by Douglas Roca MD to Alexis Malcolm DO, and understanding confirmed on 02/21/2024 10:58:09 (ET). Electronically Signed: Douglas Roca MD at 11:00 EDT , ADDENDUM: 02/21/24 1107 IMPRESSION: No acute intracranial process. Mild chronic involutional changes of the brain. N.B. : The above Results were Read Back by Douglas Roca MD to Alexis Malcolm DO, and understanding confirmed on 02/21/2024 10:58:09 (ET). Electronically Signed: Douglas Roca MD at 11:00 EDT , Head/Neck CTA 02/21/24 10:38 IMPRESSION: 1. Atherosclerotic calcifications in the cavernous internal carotid arteries and bulb regions bilaterally without significant stenosis. 2. Otherwise unremarkable CCAs and ICAs. 3. No intracranial great vessel stenosis. Electronically Signed: Douglas Roca MD at 11:16 EDT , ADDENDUM: 02/21/24 1125 IMPRESSION: 1. Atherosclerotic calcifications in the cavernous internal carotid arteries and bulb regions bilaterally without significant stenosis. 2. Otherwise unremarkable CCAs and ICAs. 3. No intracranial great vessel stenosis. N.B. : The above Results were Read Back by Douglas Roca MD to Gold Espinoza DO, and understanding confirmed on 02/21/2024 11:18:09 (ET). Electronically Signed: Douglas Roca MD at 11:16 EDT , Chest X-Ray 02/21/24 11:24 IMPRESSION: No radiographic evidence of acute cardiopulmonary disease. Electronically Signed: Douglas Roca MD at 11:41 EDT , Brain MRI 02/21/24 13:02 IMPRESSION: No acute intracranial abnormality. No interval change. Electronically Signed: Rubén Urbina MD at 16:10 EDT , Echocardiogram 02/21/24 13:35 Interpretation Summary Normal LV size. Left ventricular systolic function is normal. The left ventricular ejection fraction is 65 %. Stage 1 diastolic dysfunction. Ordering Physician: Braulio Ruggiero Referring Physician: Allison Hines Performed By: Laila Mckee, TARA, RVT Physical Exam Narrative GENERAL: cooperative HEENT: Atraumatic; normocephalic EYES; Anicteric, Normal Conjunctiva NECK; supple, normal thyroid, RESPIRATORY: Diminished to auscultation CARDIOVASCULAR: Regular S1 S2, GI: soft, normoactive bowel sounds, : No Renal angle tenderness; EXTREMITIES: No edema, no clubbing, MUSCULOSKELETAL: no muscle wasting NEURO: Awake; no lateralizing signs. SKIN: No Rash PSYCH; Flat affect Assessment & Plan Assessment/Plan (1) Left arm numbness: PLAN: Plan Patient is a 73-year-old lady who presented with left arm numbness 1. Left arm numbness ? Patient has significant risk for CVA including hypertension diabetes. Admitted to monitored bed placed on every 4 neurochecks initial diagnostic workup came back unremarkable. Subsequently ordered 2D echo and MRI of the brain with consultation placed to teleneuro patient is on antiplatelet therapy with aspirin continue -02/22/2024; Patient seen complains of numbness this time in the left upper extremity MRI however came back negative. Plan is for patient to be assessed for possible discharge after being evaluated by teleneuro 2. Hypertension - Blood pressure controlled, home medications continued with dose adjustment as needed 3. Diabetes mellitus type II -patient's oral hypoglycemics held. Placed on long acting insulin, Accu-Cheks a.c. and at bedtime and covered with sliding scale insulin 4. Dyslipidemia -Patient is on statin therapy, continued at home dose 5. Generalized osteoarthritis ? Pain meds as needed 6. History of recurrent DVT/PE ? Patient is on rivaroxaban to continue 7. Class I obesity with BMI of 30 ? Complicating care weight loss advised 8. DVT prophylaxis ? SC Lovenox Time spent in the patient's overall evaluation,decision-making process, review of diagnostic data, adjustment of management, discussion with other providers, nursing nursing and ancillary staff involved in patient's care documentation, 36 Minutes Charges/Coding Visit Charges Inpatient E&M: 23800 Subs Hosp L2
[2024-02-22 10:38] VITALS: BMI 30.2
--- NOTE | 2024-02-22 11:54 | CASEMGMT ---
Social Work SW asked pt to bring in POA documents as able. She did confirm son Jacques is healthcare POA. NEHA Jurado
--- NOTE | 2024-02-22 11:56 | CASEMGMT ---
Social Work Pt completed PHQ-9 w/SW. The symptoms she is identifying pt attributes they symptoms she is having as related to her multiple TIAs, rather than any concerns of depression. No resources needed at this time. NEHA Jurado
--- NOTE | 2024-02-22 12:19 | CON.PCM.NE_ITS ---
Assessment and Plan: Stroke Assessment/Plan MOLLY GREEN is a 73 F with a history of TIAs, essential hypertension, diabetes mellitus type 2 afib who presents for evaluation of TIA. The symptoms appear atypical with L numbness and then R numbness but strokes can present initially as such. Will treat this episode as a TIA however prior events are unclear if cerebrovascular in nature especially since involved both sides with minimal imaging changes despite prolonged symptom duration. At this time, her secondary stroke prevention regiment is maximized - Anti-platelet medication: continue home xeralto - Occupational/ Physical therapy consults - DVT prophylaxis with SCDs - Vascular risk factor modification. 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 BP management should aim to achieve shelter contorl in a reasonable amount of time, taking into consideration the individual patient's requirements and characteristics. Weight Management: Goal for BMI is 18.5 -24.9 kg/m2 Alcohol: No more than 2 drinks/day for men or 1 drink/day for non- women - Promote lifestyle modification: weight control, physical activity, moderation of alcohol intake, moderate sodium intake. If pt has additional symptoms in future, recommend MRI Cspine in addition to Brain Followup with PCP in 1-2 weeks, and in Neurology clinic in 6-12 weeks HPI Consult Data Date of Consult: 02/22/24 HPI Narrative HPI Narrative: MOLLY GREEN, is a 73 F with past medical history significant for previous TIAs, essential hypertension, diabetes mellitus type 2 who presented with left arm numbness. Patient symptoms started on the morning of her admission. Patient also stated that her son told her speech was slurred. She denied any focal deficit otherwise. She did call her primary care physician's office and was instructed to present to the ED. Initial workup in the ED came back unremarkable she was however admitted for possible CVA workup Neurologic History Pt was having breakfast and in kitchen when symptoms started. Pt did not note slurred speech. No weakness or clumsiness in the L arm when numbness started. The L face and pt's face was numb. The numbness in the L arm is still present but very slight. Also suddenly had numbness in the R arm that lasted half a day and only affected the R arm. This is not similar to previous episodes of TIA. The eipsode last March, pt had general weakness and was placed on prednisone for swelling in her legs. The one in Aug was swelling in the L leg and general weakness and got better with additional prednisone. There was no noted numbness on the L side with the prior TIAs. On eval of prior workup of symptoms, pt has never had stroke on MRI despite having had several days of symptoms - last March she came to hospital after 2 days of symptoms and they persisted for months afterward. Subsequent MRIs have no demonstrated chronic appearing stroke changes either. Placed on xeralto in March, for history afib. No issues taking the xeralto [facility] Medical History (Updated 02/21/24 @ 13:[address] Braulio Ruggiero MD) Post-menopausal Wears glasses Arthritis Anemia Injury of head and neck Colitis Non-smoker History of stress test History of echocardiogram Cardiology follow-up encounter Hypertension History of irregular heartbeat TIA (transient ischemic attack) Fall Acute right-sided weakness Obesity Recurrent deep vein thrombosis (DVT) (10/2018) Essential (primary) hypertension Paresthesia Vertigo Uterine prolapse Hyperlipidemia Asthma Diabetes mellitus, type II Home Medications ?Medication ?Instructions ?Recorded ?Last Taken ?Type montelukast 10 mg tablet 10 mg PO DAILY seasonal allergies 08/24/13 02/20/24 History fluticasone propionate 50 2 spray NASAL DAILY allergies 03/31/18 02/20/24 History mcg/actuation nasal spray,suspension meloxicam 15 mg tablet 15 mg PO DAILY arthritis 03/31/18 02/20/24 History aspirin 81 mg tablet,delayed 81 mg PO DAILY 11/08/21 02/20/24 History release metformin 500 mg tablet 500 mg PO TID 11/08/21 02/21/24 History methenamine-sodium salicylate 162 1 tab PO PRN 11/28/22 02/20/24 History mg-162.5 mg tablet (AZO Urinary Tract Defense) Bifidobacterium infantis 1 tab PO QODAY 04/06/23 02/20/24 History loratadine 10 mg tablet (Claritin) 10 mg PO DAILY 04/06/23 02/20/24 History vitamins-lipotropics 1 tab .Route BID 04/06/23 02/20/24 History pravastatin 20 mg tablet 20 mg PO QHS cholesterol #90 tabs 05/10/23 02/20/24 Rx cholecalciferol (vitamin D3) 50 150 mcg PO BID 07/07/23 02/20/24 History mcg (2,000 unit) capsule rivaroxaban 10 mg tablet (Xarelto) 10 mg PO DAILY #90 tabs 07/12/23 02/20/24 Rx albuterol sulfate 90 mcg/actuation 2 puff inhalation Q6H PRN 07/20/23 Unknown History aerosol inhaler (Ventolin HFA) shortness of breath or wheezing budesonide 180 mcg/actuation 2 inh inhalation BID 08/02/23 02/20/24 History breath activated powder inhaler (Pulmicort Flexhaler) multivitamin (Daily Multi-Vitamin 1 tab PO DAILY 08/02/23 02/20/24 History tablet) lisinopril 20 mg tablet 20 mg PO DAILY blood pressure #90 01/03/24 02/20/24 Rx tabs carboxymethylcellulose sodium 1 % 1 drp EACH EYE BID 02/21/24 02/20/24 History eye drops (Artificial Tears (carboxymethylcellulose)) povidone 1.25 % eye drops (Soothe 1 drp ophthalmic (eye) BID 02/21/24 02/20/24 History Hydration) prednisolone acetate 1 % eye 1 drp ophthalmic (eye) BID 02/21/24 02/20/24 History drops,suspension Allergy/AdvReac Type Severity Reaction Status Date / Time ciprofloxacin (From Cipro) AdvReac Other Verified 02/21/24 10:16 ciprofloxacin HCl (From AdvReac Other Verified 02/21/24 10:16 Cipro) tetracycline (Tetracycline) AdvReac Other Verified 02/21/24 10:16 Family History (Updated 07/07/23 @ 15:00 by Kaylene Abreu) Father Heart disease Grandmother Cancer Stomach cancer Surgical History History of corneal transplant History of bladder suspension procedure History of hysterectomy Social History Smoking Status: Never smoker Vital Signs Vital Signs Vital Signs: 02/21/24 13:00 02/21/24 13:15 02/21/24 13:16 Temperature 97.6 F L Temperature Source Pulse Rate 88 88 88 Respiratory Rate 18 18 18 Respiratory Effort Respiratory Depth Respiratory Pattern Blood Pressure 157/78 H 147/86 H 156/78 H Blood Pressure Mean 104 106 104 Blood Pressure Source Blood Pressure Position Blood Pressure Location Pulse Ox 98 98 98 Oxygen Delivery Method Room Air Room Air 02/21/24 13:44 02/21/24 13:45 02/21/24 17:15 Temperature 97.8 F 97.9 F Temperature Source Oral Oral Pulse Rate 73 74 Respiratory Rate 18 18 Respiratory Effort Respiratory Depth Respiratory Pattern Blood Pressure 151/71 H 146/67 H Blood Pressure Mean 97 93 Blood Pressure Source Monitor Monitor Blood Pressure Position Semi-Fowlers Semi-Fowlers Blood Pressure Location Right Arm Right Arm Pulse Ox 99 98 Oxygen Delivery Method Room Air Room Air Room Air 02/21/24 19:30 02/21/24 20:05 02/21/24 20:15 Temperature 97.8 F Temperature Source Temporal Pulse Rate 71 Respiratory Rate 14 Respiratory Effort Normal Non-Labored Respiratory Depth Normal Respiratory Pattern Normal Blood Pressure 127/93 H Blood Pressure Mean 104 Blood Pressure Source Monitor Blood Pressure Position Blood Pressure Location Pulse Ox 97 95 Oxygen Delivery Method Room Air Room Air 02/21/24 21:40 02/22/24 03:03 02/22/24 03:03 Temperature 97 F L Temperature Source Oral Pulse Rate 71 Respiratory Rate 17 Respiratory Effort Respiratory Depth Respiratory Pattern Blood Pressure 146/68 H Blood Pressure Mean 94 Blood Pressure Source Monitor Blood Pressure Position Semi-Fowlers Blood Pressure Location Right Arm Pulse Ox 93 96 Oxygen Delivery Method Room Air Room Air Room Air 02/22/24 07:15 02/22/24 09:00 Temperature 97.8 F Temperature Source Temporal Pulse Rate 64 Respiratory Rate 22 H Respiratory Effort Respiratory Depth Respiratory Pattern Blood Pressure 131/65 H Blood Pressure Mean 87 Blood Pressure Source Monitor Blood Pressure Position Sitting Blood Pressure Location Right Arm Pulse Ox 95 95 Oxygen Delivery Method Room Air Room Air Weight Weight: 87.4 kg Body Mass Index (BMI) 30.2 EEG Results Procedure Details EEG Procedure Details: MOLLY GREEN is a 73 year old F with a past medical history of , who presents for evaluation of Electroencephalogram on DATE at TIME NIHSS NIHSS Nursing Documentation NIHSS Nursing Documentation: NIHSS: Ischemic Stroke/TIA Start: 02/21/24 13:35 Text: For PCU Patients: NIH and Neuro Check every 4 Status: Complete hours, PRN and with change in RN caregiver. Freq: [id number] Protocol: Activity Type Activity Date Activity User E-sign Co-sign Detail Recorded Client Recorded Date Recorded By Document 02/21/24 13:44 [facility] desktop 02/21/24 14:45 AMG 02/21/24 13:44 NIH Stroke Scale [NIHSS] A score of 0 is normal or asymptomatic . Total possible score is 42. Inpatient: RN or Physician to activate a stroke alert for onset of new stroke symptoms or with NIHSS increase >/= 3 points. Following change in neurological status, NIHSS will be performed per physician order or more frequently PRN. -1a. Level of Consciousness Alert; keenly responsive -1b. LOC Questions Answers BOTH questions correctly. -1c. LOC Commands Performs both tasks correctly . -2. Best Gaze Normal -3. Visual No visual loss -4. Facial Palsy Normal symmetrical movements -5a. Left Arm No drift; arm holds 90 (or 45 ) degrees for full 10 seconds -5b. Right Arm No drift; arm holds 90 (or 45 ) degrees for full 10 seconds -6a. Left Leg No drift; leg holds 30-degree position for full 5 seconds -6b. Right Leg No drift; leg holds 30-degree position for full 5 seconds -7. Limb Ataxia Absent -8. Sensory Mild-to- moderate sensory loss; -9. Best Language No aphasia; normal -10. Dysarthria Normal -11. Extinction and Inattention No abnormality -Total 1 Query Text:A score of 0 is normal or asymptomatic. Total possible score is 42 . ED: Notify Physician for NIHSS increase by > / = 3 points. Inpatient: RN or Physician to activate a stroke alert for NIHSS increase of > / = 3 points. NIHSS 1a. Level of Consciousness: Alert; keenly responsive 1b. LOC Questions: Answers BOTH questions correctly. 1c. LOC Commands: Performs both tasks correctly. 2. Best Gaze: Normal 3. Visual: No visual loss 4. Facial Palsy: Normal symmetrical movements 5a. Left Arm: No drift; arm holds 90 (or 45) degrees for full 10 seconds 5b. Right Arm: No drift; arm holds 90 (or 45) degrees for full 10 seconds 6a. Left Leg: No drift; leg holds 30-degree position for full 5 seconds 6b. Right Leg: Drift; leg falls by the end of 5-seconds, but does not hit bed 7. Limb Ataxia: Absent 8. Sensory: Normal; no sensory loss 9. Best Language: No aphasia; normal 10. Dysarthria: Normal 11. Extinction and Inattention: No abnormality Total: 1 Lab / Micro Data 02/22/24 05:08 02/22/24 05:08 Labs: Laboratory Results - last 24 hr 02/22/24 05:08: WBC 7.2, RBC 4.37, Hgb 11.6 L, Hct 37.8, MCV 86.5, MCH 26.5 L, M CHC 30.7 L, RDW Std Deviation 51.0 H, RDW Coeff of Kathya 16.0 H, Plt Count 310, MPV 10.1, Immature Gran % (Auto) 0.400, Neut % (Auto) 60.5, Lymph % (Auto) 23.4, Grand % (Auto) 10.0, Eos % (Auto) 4.3, Baso % (Auto) 1.4 H, Absolute Neuts (auto) 4.3, Absolute Lymphs (auto) 1.68, Nucleated RBC % 0, Sodium 141, Potassium 4.2, Chloride 109 H, Carbon Dioxide 27.0, Anion Gap 5, BUN 14, Creatinine 0.60, Estim Creat Clear Calc 68.99, Est GFR (MDRD) Af Amer 126, Est GFR (MDRD) Non-Af 104, BUN/Creatinine Ratio 23.5 H, Glucose 136 H, Calcium 8.8, Phosphorus 3.1, Magnesium 1.9, Triglycerides 52, Cholesterol 142, LDL Cholesterol 72, VLDL Cholesterol 10, HDL Cholesterol 60 Imaging Radiology Impression Brain MRI 02/21/24 13:02 IMPRESSION: No acute intracranial abnormality. No interval change. Electronically Signed: Rubén Urbina MD at 16:10 EDT , Echocardiogram 02/21/24 13:35 Interpretation Summary Normal LV size. Left ventricular systolic function is normal. The left ventricular ejection fraction is 65 %. Stage 1 diastolic dysfunction. Ordering Physician: Braulio Ruggiero Referring Physician: Allison Hines Performed By: Laila Mckee, TARA, RVT Active Medications Active Medications Active Medications: Current Medications Generic Name Dose Route Start Last Admin Trade Name Freq PRN Reason Stop Dose Admin Acetaminophen 650 mg 02/21/24 13:35 Acetaminophen 325 Mg Tablet PO Q6H PRN PRN Pain 1-10 Or Fever>100.7 Al Hydroxide/Mg Hydroxide 30 ml 02/21/24 13:35 Mag Hydrox/Al Hydrox/Simeth 30 Ml Udc PO Q6H PRN PRN Gastric Burning Atorvastatin Calcium 40 mg 02/21/24 22:00 02/21/24 20:16 Atorvastatin Calcium 40 Mg Tablet PO 40 mg QHS ISMA Administration Sodium Chloride 1,000 mls @ 100 mls/hr 02/21/24 13:35 02/22/24 11:45 IV Infused .Q10H ISMA Infusion Sodium Chloride 250 mls @ 15 mls/hr 02/21/24 13:38 IV .[id number] PRN Additional IVPB Infusion Sodium Chloride 250 mls @ 15 mls/hr 02/21/24 13:38 IV .[id number] PRN Saline Flush Melatonin 3 mg 02/21/24 13:35 Melatonin 3 Mg Tablet PO QHS PRN PRN INSOMNIA Ondansetron HCl 4 mg 02/21/24 13:35 Ondansetron 4 Mg/2 Ml Vial IV Q8H PRN PRN NAUSEA/VOMITING Senna/Docusate Sodium 2 tablet 02/21/24 13:35 Senna/Docusate Sodium 1 Tablet PO BID PRN PRN Constipation Sodium Chloride 10 - 40 ml 02/21/24 13:38 0.9% Saline Lock 10 Ml Syringe IV UD PRN SALINE FLUSH
--- NOTE | 2024-02-22 12:24 | CASEMGMT ---
RN CM to pt room for assessment, pt is currently being seen by tele-neuro. Will follow.
--- NOTE | 2024-02-22 12:45 | PCM.DC.SUM ---
Providers Date of Admission: 02/21/24 Date of Discharge: 02/22/24 Primary Care Physician: Dr. Allison Hines MD Consultations 02/21/24 13:35 Consult: Tele-Neurology Routine Consulting Provider: [facility] Reason for Consult: Acute Ischemic Stroke/TIA EMERGENT Consult: No MD Notified: Yes Date Notified: 02/21/24 Time Notified: 14:15 Method of Notification: Answering Service Nursing Unit Staff Notify [facility] of Tele-Neurology Consult: Yes Reason For Visit: CVA Diagnosis Discharge Diagnosis (1) Left arm numbness: Status: Acute Code(s): R20.0 - Anesthesia of skin Plan Patient is a 73-year-old lady who presented with left arm numbness 1. Left arm numbness ? Patient has significant risk for CVA including hypertension diabetes. Admitted to monitored bed placed on every 4 neurochecks initial diagnostic workup came back unremarkable. Subsequently ordered 2D echo and MRI of the brain with consultation placed to teleneuro patient is on antiplatelet therapy with aspirin continue -02/22/2024; Patient seen complains of numbness this time in the left upper extremity MRI however came back negative. Plan is for patient to be assessed for possible discharge after being evaluated by teleneuro ? Patient was seen by teleneuro no recommendations were made to patient home medications. Plan is for patient to undergo MRI of the C-spine if her symptoms recurred 2. Hypertension - Blood pressure controlled, home medications continued with dose adjustment as needed 3. Diabetes mellitus type II -patient's oral hypoglycemics held. Placed on long acting insulin, Accu-Cheks a.c. and at bedtime and covered with sliding scale insulin 4. Dyslipidemia -Patient is on statin therapy, continued at home dose 5. Generalized osteoarthritis ? Pain meds as needed 6. History of recurrent DVT/PE ? Patient is on rivaroxaban to continue 7. Class I obesity with BMI of 30 ? Complicating care weight loss advised 8. DVT prophylaxis ? SC Lovenox Time spent in the patient's overall evaluation,decision-making process, review of diagnostic data, adjustment of management, discussion with other providers, nursing nursing and ancillary staff involved in patient's care documentation, 36 Minutes Medications at Discharge Home Medications montelukast 10 mg tablet 10 mg PO DAILY seasonal allergies 08/24/13 fluticasone propionate 50 mcg/actuation nasal spray,suspension 2 spray NASAL DAILY allergies 03/31/18 meloxicam 15 mg tablet 15 mg PO DAILY arthritis 03/31/18 aspirin 81 mg tablet,delayed release 81 mg PO DAILY 11/08/21 metformin 500 mg tablet 500 mg PO TID 11/08/21 methenamine-sodium salicylate 162 mg-162.5 mg tablet (AZO Urinary Tract Defense) 1 tab PO PRN 11/28/22 Bifidobacterium infantis 1 tab PO QODAY 04/06/23 loratadine 10 mg tablet (Claritin) 10 mg PO DAILY 04/06/23 vitamins-lipotropics 1 tab .Route BID 04/06/23 pravastatin 20 mg tablet 20 mg PO QHS cholesterol #90 tabs 05/10/23 cholecalciferol (vitamin D3) 50 mcg (2,000 unit) capsule 150 mcg PO BID 07/07/23 rivaroxaban 10 mg tablet (Xarelto) 10 mg PO DAILY #90 tabs 07/12/23 albuterol sulfate 90 mcg/actuation aerosol inhaler (Ventolin HFA) 2 puff inhalation Q6H PRN shortness of breath or wheezing 07/20/23 budesonide 180 mcg/actuation breath activated powder inhaler (Pulmicort Flexhaler) 2 inh inhalation BID 08/02/23 multivitamin (Daily Multi-Vitamin tablet) 1 tab PO DAILY 08/02/23 lisinopril 20 mg tablet 20 mg PO DAILY blood pressure #90 tabs 01/03/24 carboxymethylcellulose sodium 1 % eye drops (Artificial Tears (carboxymethylcellulose)) 1 drp EACH EYE BID 02/21/24 povidone 1.25 % eye drops (Soothe Hydration) 1 drp ophthalmic (eye) BID 02/21/24 prednisolone acetate 1 % eye drops,suspension 1 drp ophthalmic (eye) BID 02/21/24 Physical Exam Narrative GENERAL: cooperative HEENT: Atraumatic; normocephalic EYES; Anicteric, Normal Conjunctiva NECK; supple, normal thyroid, RESPIRATORY: Diminished to auscultation CARDIOVASCULAR: Regular S1 S2, GI: soft, normoactive bowel sounds, : No Renal angle tenderness; EXTREMITIES: No edema, no clubbing, MUSCULOSKELETAL: no muscle wasting NEURO: Awake; no lateralizing signs. SKIN: No Rash PSYCH; Flat affect Weight / BMI Weight Weight: 87.4 kg Body Mass Index (BMI) 30.2 ABG / Lab / Microbiology Data 02/22/24 05:08 02/22/24 05:08 Laboratory: Laboratory Results - last 24 hr 02/22/24 05:08: WBC 7.2, RBC 4.37, Hgb 11.6 L, Hct 37.8, MCV 86.5, MCH 26.5 L, MCHC 30.7 L, RDW Std Deviation 51.0 H, RDW Coeff of Kathya 16.0 H, Plt Count 310, MPV 10.1, Immature Gran % (Auto) 0.400, Neut % (Auto) 60.5, Lymph % (Auto) 23.4, [place] % (Auto) 10.0, Eos % (Auto) 4.3, Baso % (Auto) 1.4 H, Absolute Neuts (auto) 4.3, Absolute Lymphs (auto) 1.68, Nucleated RBC % 0, Sodium 141, Potassium 4.2, Chloride 109 H, Carbon Dioxide 27.0, Anion Gap 5, BUN 14, Creatinine 0.60, Estim Creat Clear Calc 68.99, Est GFR (MDRD) Af Amer 126, Est GFR (MDRD) Non-Af 104, BUN/Creatinine Ratio 23.5 H, Glucose 136 H, Calcium 8.8, Phosphorus 3.1, Magnesium 1.9, Triglycerides 52, Cholesterol 142, LDL Cholesterol 72, VLDL Cholesterol 10, HDL Cholesterol 60 Radiography Diagnostic Testing: Radiology Impression Brain MRI 02/21/24 13:02 IMPRESSION: No acute intracranial abnormality. No interval change. Electronically Signed: Rubén Urbina MD at 16:10 EDT , Echocardiogram 02/21/24 13:35 Interpretation Summary Normal LV size. Left ventricular systolic function is normal. The left ventricular ejection fraction is 65 %. Stage 1 diastolic dysfunction. Ordering Physician: Braulio Ruggiero Referring Physician: Allison Hines Performed By: Laila Mckee RDCS, RVT D/C Instructions Discharge Diet: 1800 Calorie Control Diet Discharge Activity: Return to Normal Activity Call your doctor if you observe: Fever of 101 or Higher, Shortness of breath, Fainting spells and Chest pain Meaningful Use Info Meaningful Use Meaningful Use Diagnoses (Choose all that apply): None applicable Ischemic Stroke Statin Dosing Therapy Reference: STATIN DOSE THERAPY REFERENCE: * Patients > 75 years receive moderate or high dose statin therapy. * Patients 75 years or YOUNGER should receive HIGH intensity statin dose unless contraindicated. You will be required to document reason for non-treatment if statin daily dose does not meet guidelines. HIGH DOSE STATIN THERAPY DAILY Atorvastatin > than or = to 40 mg Rosuvastatin > than or = to 20 mg Amlodipine + Atorvastatin > than or = to 2.5/40 mg Ezetimibe + Simvastatin 10/80 mg Simvastatin 80mg Discharge Plan Admission Admit Date/Time: 02/21/24 12:39 Attending Provider: Braulio Ruggiero Primary Care Provider: Allison Hines Consulting Providers: Collins Patel; Carlos Evans; Alondra Johnson; Jessi Mason; Arlet Sharif; Quan Chery; Ashley Melvin; Michael Rodriguez; Daniel Bansal; Shaniqua Sanders; Patel Sosa; Gisela Amaro; Emerson Shore; Bushra Santos; Kong Centeno; Angelito Adame; Arash Altamirano; Mónica Corona; Lori Marquis Discharge Orders/Prescriptions Prescriptions: Continued aspirin 81 mg tablet,delayed release (DR/EC) 81 mg PO DAILY AZO Urinary Tract Defense 162-162.5 mg tablet 1 tab PO PRN Patient Comments: TAKES OCCASSIONALLY cholecalciferol (vitamin D3) 50 mcg (2,000 unit) capsule 150 mcg PO BID montelukast 10 MG tablet 10 mg PO DAILY metformin 500 mg tablet 500 mg PO TID meloxicam 15 MG tablet 15 mg PO DAILY fluticasone propionate 1 SPRAY spray,suspension 2 spray NASAL DAILY Pulmicort Flexhaler 180 mcg/actuation aerosol powdr breath activated 2 inh INHALATION BID multivitamin [Daily Multi-Vitamin] Tablet 1 tab PO DAILY loratadine [Claritin] 10 mg tablet 10 mg PO DAILY vitamins-lipotropics [Lipo-Flavonoid Plus] 1 tab .Route BID Bifidobacterium infantis [Align] 1 tab PO QODAY prednisolone acetate 1 % drops,suspension 1 drp ophthalmic (eye) BID Artificial Tears (cmc) 1 % drops 1 drp EACH EYE BID Soothe Hydration 1.25 % drops 1 drp ophthalmic (eye) BID pravastatin 20 mg tablet 20 mg PO QHS Qty: 90 3RF Xarelto 10 mg tablet 10 mg PO DAILY Qty: 90 3RF albuterol sulfate [Ventolin HFA] 90 mcg/actuation HFA aerosol inhaler 2 puff inhalation Q6H PRN (Reason: shortness of breath or wheezing) lisinopril 20 mg tablet 20 mg PO DAILY Qty: 90 3RF Referrals / Follow Up: Allison Hines MD [Primary Care Provider] - Within 1 Week Disposition Disposition (needs filled in before D/C Order can be placed): Home, Self Care Charges/Coding Visit Charges Inpatient E&M: 83583 Disch Hosp >30min
--- NOTE | 2024-02-22 13:02 | CASEMGMT ---
RN CM Assessment Face to Face with patient for initial transition planning/care coordination assessment. RN CM introduced self and role at [facility], pt voices understanding. Pt is A&Ox4 and is resting comfortably in bed and is calm. Care providers, pharmacy, and demographics verified. Admitting dx: CVA LACE Strata: 2 PCP: [facility]: denies Preferred Pharmacy: [facility] Insurance: [facility] A/B, [facility] Supplemental Prescription Benefit: Yes LNOK: Jacques Cuenca (Son) Living Arrangements: Pt lives alone in a ranch style home with a BM and 2 steps to enter ADLs/IADLs: Ind Transportation: Self, Son DME: [employer]. Pt states that she has a working BGM and enough supplies to check her BS levels. BP Cuff HHC/SNF: Denies history or needs Pt?s goal: Home Plan: DC order placed. Pt states that her son is going to come pick her up and take care of her at home. Pt denies HHC and OP therapy to this RN CM. Pt states my son will help me out at home, he is good at setting that stuff up. Pt again denies the need for this RN CM to set up HHC or OP therapy. Pt states that she feels safe discharging home today with no additional needs. Pt ANGE Weber RN, CM
[2024-02-22 13:09] LABS: Bedside Glucose 213 mg/dL (74-106)
--- NOTE | 2024-02-22 13:48 | PHA.DC.MR.R ---
[facility]arm[facility] [place] Med Reconciliation Pharmacy Service has performed discharge medication reconciliation for this patient. No new medications at time of discharge review. Medications reviewed are from previously reported home medications. The patient's discharge medication list was reviewed for discrepancies and discrepancies were resolved. Medications at Discharge Home Medications montelukast 10 mg tablet 10 mg PO DAILY seasonal allergies 08/24/13 fluticasone propionate 50 mcg/actuation nasal spray,suspension 2 spray NASAL DAILY allergies 03/31/18 meloxicam 15 mg tablet 15 mg PO DAILY arthritis 03/31/18 aspirin 81 mg tablet,delayed release 81 mg PO DAILY 11/08/21 metformin 500 mg tablet 500 mg PO TID 11/08/21 methenamine-sodium salicylate 162 mg-162.5 mg tablet (AZO Urinary Tract Defense) 1 tab PO PRN 11/28/22 Bifidobacterium infantis 1 tab PO QODAY 04/06/23 loratadine 10 mg tablet (Claritin) 10 mg PO DAILY 04/06/23 vitamins-lipotropics 1 tab .Route BID 04/06/23 pravastatin 20 mg tablet 20 mg PO QHS cholesterol #90 tabs 05/10/23 cholecalciferol (vitamin D3) 50 mcg (2,000 unit) capsule 150 mcg PO BID 07/07/23 rivaroxaban 10 mg tablet (Xarelto) 10 mg PO DAILY #90 tabs 07/12/23 albuterol sulfate 90 mcg/actuation aerosol inhaler (Ventolin HFA) 2 puff inhalation Q6H PRN shortness of breath or wheezing 07/20/23 budesonide 180 mcg/actuation breath activated powder inhaler (Pulmicort Flexhaler) 2 inh inhalation BID 08/02/23 multivitamin (Daily Multi-Vitamin tablet) 1 tab PO DAILY 08/02/23 lisinopril 20 mg tablet 20 mg PO DAILY blood pressure #90 tabs 01/03/24 carboxymethylcellulose sodium 1 % eye drops (Artificial Tears (carboxymethylcellulose)) 1 drp EACH EYE BID 02/21/24 povidone 1.25 % eye drops (Soothe Hydration) 1 drp ophthalmic (eye) BID 02/21/24 prednisolone acetate 1 % eye drops,suspension 1 drp ophthalmic (eye) BID 02/21/24
[2024-02-22 13:56] VITALS: BP 139/54; PULSE 72; RESP 16; TEMP 36.1; O2SAT 94
== END 2024-02-22 14:23 | disposition home or self-care (01) ==
LOC: ED 11:51 → PCU 02-22 08:18
PROVIDERS: Admitting Provider Internal Medicine; Emergency Provider Emergency Medicine; PCP Internal Medicine; Visit Provider Internal Medicine
DX: R20.0 Anesthesia of skin (principal); E11.9 Type 2 diabetes mellitus without complications; I10 Essential (primary) hypertension; E78.5 Hyperlipidemia, unspecified; Z68.30 Body mass index [BMI] 30.0-30.9, adult; E66.9 Obesity, unspecified; Z79.01 Long term (current) use of anticoagulants; Z79.02 Long term (current) use of antithrombotics/antiplatelets; Z79.82 Long term (current) use of aspirin; Z79.84 Long term (current) use of oral hypoglycemic drugs; Z79.1 Long term (current) use of non-steroidal anti-inflammatories (NSAID); R47.81 Slurred speech; Z86.73 Personal history of transient ischemic attack (TIA), and cerebral infarction without residual deficits; M19.90 Unspecified osteoarthritis, unspecified site; Z79.899 Other long term (current) drug therapy; Z86.718 Personal history of other venous thrombosis and embolism; Z79.51 Long term (current) use of inhaled steroids; J45.909 Unspecified asthma, uncomplicated; Z90.710 Acquired absence of both cervix and uterus
CPT/HCPCS: 36415; 70450; 70496; 70498; 70551; 71045; 80048; 80061; 82962; 83735; 84100; 84484; 85025; 85610; 85730; 93005; 93306; 94668; 94762; 96360; 96361; 97162; 97166; 99221; 99284; J7030; Q9967; A4216; G0378